=== PATIENT | male | born 1965 | race Caucasian/White ===

== ENCOUNTER 2020-09-05 13:22 | Inpatient (IN) | payer OTHER ==
[~2020-09-05] VITALS: Ht 170.2 cm; Wt 88.3 kg
[2020-09-05] MEDS ORDERED: GLIP5TAB10 PO (14:36)
[2020-09-05] MEDS ORDERED: TRAZ-120 PO (14:36)
[2020-09-05] MEDS ORDERED: PYRI50TA6 PO (14:36)
[2020-09-05] MEDS ORDERED: MUPI22OI2 TP (14:36)
[2020-09-05] MEDS ORDERED: ASPI-630 PO (14:36)
[2020-09-05] MEDS ORDERED: METF500T16 PO (14:36)
[2020-09-05] MEDS ORDERED: LACT1CAP29 PO (14:36)
[2020-09-05] MEDS ORDERED: LEVE750T23 PO (14:36)
[2020-09-05] MEDS ORDERED: ALOG25TA PO (14:36)
[2020-09-05] MEDS ORDERED: TAMS0.4C97 PO (14:36)
[2020-09-05] MEDS ORDERED: ATORVASTATIN CA80 MG PO (14:36)
[2020-09-05] MEDS ORDERED: CHOL500021 PO (14:36)
[2020-09-05] MEDS ORDERED: GLUC-11 PO (14:36)
[2020-09-05] MEDS ORDERED: FLUO10CA15 PO (14:36)
[2020-09-05] MEDS ORDERED: EMPA25TA PO (14:36)
[2020-09-05] MEDS ORDERED: ARIP10TA9 PO (14:36)
[2020-09-05 14:53] VITALS: BP 146/80
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
--- NOTE | 2020-09-05 15:31 | NUR ---
NURSING NOTE CODE STATUS PER PT MOTHER POA, PT IS FULL CODE AT THIS TIME. ELVIN MATTHEW.
--- NOTE | 2020-09-05 15:33 | NUR ---
Basilio [place] a [place] fee for service, consult number [id number]. Meera, [place] demo coordinator, will call with [place] authorization number once issued. Addendum: 09/06/20 at 0925 by DOLORES LOPEZ [facility] referral/authorization number is [id number].
--- NOTE | 2020-09-05 16:05 | NUR ---
NURSING NOTE CONSULT CONSULT DR GARCIA FAXED. ELVIN MATTHEW.
--- NOTE | 2020-09-05 18:22 | HP ---
ADMIT DATE: 09/05/2020 ATTENDING PHYSICIAN: Dr. Hendrix. CHIEF COMPLAINT AND HISTORY OF PRESENT ILLNESS: The patient is scheduled [facility]. He is a [place] patient. He lives at home. He has been very hostile, agitated, and irritable. He has trouble with expressive aphasia, previous stroke and frontal lobe surgery. He is on medications for bipolar disorder. He was referred from the [facility]. PAST MEDICAL HISTORY: Stroke 2 years ago requiring craniotomy left frontal lobe, bipolar disorder, anxiety, expressive aphasia, type 2 diabetes, alcohol dependence, hypertension and coronary artery disease. ALLERGIES: He has no recorded drug allergies. MEDICATIONS: Reviewed. He was taking Flomax, Lipitor, aspirin, Keppra, fluoxetine, trazodone, Abilify, lactobacillus, Metformin, Jardiance, glipizide, __, pyridoxine, cholecalciferol, vitamin D3, and glucosamine, chondroitin sulfate. ALLERGIES: He has no recorded allergies. SOCIAL HISTORY: He is a drinker. No smoking history. FAMILY HISTORY: He lives with his mom. He is a disabled . REVIEW OF SYSTEMS: Significant for speech issues. He has had some chronic swelling. No pain, fevers or chills. No nausea or vomiting. All other systems reviewed and turned to be negative. PHYSICAL EXAMINATION: GENERAL: When I saw him, this is a pleasant, middle-aged gentleman. INITIAL VITAL SIGNS: Showed a blood pressure 146/80, pulse is 89 and regular. He was afebrile, oxygen saturation 96% on room air. HEENT: Head is without trauma. Pupils are reactive. Sclerae are nonicteric. The oropharynx is clear. NECK: Supple, no bruits identified. There is a midline incision from the scalp that is well healed. LUNGS: Otherwise clear. CARDIOVASCULAR: Showed regular heart tones. No gallops. ABDOMEN: Soft, no guarding, rebound tenderness. EXTREMITIES: Showed no cyanosis or edema. NEUROLOGIC: Focally intact. Speech is a bit stuttered and labored, but he is able to communicate adequately. There are no focal deficits. SKIN: Warm and dry. LABORATORY DATA: CBC, chemistry panel, treponema pallidum and coronavirus swab are pending at this time. ASSESSMENT: 1. This 55-year-old gentleman has behavioral issues related to his stroke. 2. Aggressive behavior. 3. Schizoaffective disorder. 4. History of chronic alcoholism. 5. Anxiety with aphasia. 6. Type 2 diabetes. 7. Idiopathic seizure disorder. PLAN: 1. Admit to the medical floor. 2. Await results of COVID swab and lab work. 3. Home meds were continued. 4. He will go to the [facility] when his COVID-19 swab is negative. JET HENDRIX MD DR: KAITLIN/marco JOB#: [id number] / [id number] SHARRI Jiménez MD
[2020-09-05 19:25] VITALS: BP 133/77
[2020-09-05 19:48] LABS: BASO % 1 % (0-3); EOS # 0.1 x10^3/uL (0.0-0.7); EOS % 2 % (0-3); HEMATOCRIT 44.3 % (39.0-53.0); HEMOGLOBIN 14.4 g/dL (13.0-17.5); LYMPH # 1.4 x10^3/uL (1.0-4.8); LYMPH % 20 % (24-48); MEAN CORPUSCULAR HEMOGLOBIN 29 pg (25-35); MEAN CORPUSCULAR HGB CONC 33 g/dL (31-37); MEAN CORPUSCULAR VOLUME 90 fL (79-100); MONO # 0.5 x10^3/uL (0.0-1.1); MONO % 8 % (0-9); NEUT # 4.8 x10^3uL (1.8-7.7); NEUT % 70 % (31-73); PLATELET COUNT 271 x10^3/uL (140-400); RED BLOOD COUNT 4.94 x10^6/uL (4.30-5.70); WHITE BLOOD COUNT 6.9 x10^3/uL (4.0-11.0)
[2020-09-05 20:01] LABS: ALBUMIN 3.9 g/dL (3.4-5.0); CALCIUM 9.5 mg/dL (8.5-10.1); CREATININE 1.6 mg/dL (0.7-1.3); GFR 45.1; MAGNESIUM 2.4 mg/dL (1.8-2.4); POTASSIUM 3.7 mmol/L (3.5-5.1); TOTAL BILIRUBIN 0.2 mg/dL (0.2-1.0); TOTAL PROTEIN 7.7 g/dL (6.4-8.2)
[2020-09-05 20:32] LABS: BACTERIA,URINE 0 /HPF (0-FEW); BILIRUBIN,URINE NEG (NEG); CLARITY,URINE CLEAR; COLOR,URINE YELLOW; GLUCOSE,URINE >=1000 mg/dL (NEG); NITRITE,URINE NEG (NEG); RBC,URINE 0 /HPF (0-2); UROBILINOGEN,URINE 0.2 mg/dL (0.2 mg/dL); WBC,URINE 0 /HPF (0-4)
[2020-09-05] MEDS ORDERED: traZODone 50 MG TABLET. PO SCH (21:00)
[2020-09-05] MEDS: LACTOBACILLUS RHAMNOSUS GG 1 CAPSULE. PO SCH (21:21)
[2020-09-05] MEDS: MUPIROCIN 2% TOPICAL OINTMENT 22GM TUBE. TP SCH (21:22)
[2020-09-05] MEDS: levETIRAcetam 250 MG TABLET PO SCH (21:22)
[2020-09-05] MEDS: glipiZIDE 5 MG TABLET PO SCH (21:22)
--- NOTE | 2020-09-05 22:12 | PDOC ---
Exam Note: Pasha Note: Please also refer to the separate dictated note~for this date of service dictated separately.~Patient seen individually. Discussed the patient with Nursing staff reviewed the chart.~Reviewed interim history and current functioning. Reviewed vital signs,~Labs/ Radiology~and current medications noted below. Continue current treatment with the changes noted in the dictated addendum note Assessment: Vital Signs/I&O: Vital Signs Date Time Temp Pulse Resp B/P (MAP) Pulse Ox O2 Delivery O2 Flow Rate FiO2 09/05/20 19:25 98.0 76 18 133/77 (95) 98 Room Air Labs: Laboratory Tests Test 09/05/20 19:26 09/05/20 19:27 09/05/20 20:01 White Blood Count 6.9 x10^3/uL (4.0-11.0) Red Blood Count 4.94 x10^6/uL (4.30-5.70) Hemoglobin 14.4 g/dL (13.0-17.5) Hematocrit 44.3 % (39.0-53.0) Mean Corpuscular Volume 90 fL (79-100) Mean Corpuscular Hemoglobin 29 pg (25-35) Mean Corpuscular Hemoglobin Concent 33 g/dL (31-37) Red Cell Distribution Width 14.0 % (11.5-14.5) Platelet Count 271 x10^3/uL (140-400) Neutrophils (%) (Auto) 70 % (31-73) Lymphocytes (%) (Auto) 20 % (24-48) L Monocytes (%) (Auto) 8 % (0-9) Eosinophils (%) (Auto) 2 % (0-3) Basophils (%) (Auto) 1 % (0-3) Neutrophils # (Auto) 4.8 x10^3uL (1.8-7.7) Lymphocytes # (Auto) 1.4 x10^3/uL (1.0-4.8) Monocytes # (Auto) 0.5 x10^3/uL (0.0-1.1) Eosinophils # (Auto) 0.1 x10^3/uL (0.0-0.7) Basophils # (Auto) 0.0 x10^3/uL (0.0-0.2) Sodium Level 139 mmol/L (136-145) Potassium Level 3.7 mmol/L (3.5-5.1) Chloride Level 102 mmol/L (98-107) Carbon Dioxide Level 26 mmol/L (21-32) Anion Gap 11 (6-14) Blood Urea Nitrogen 32 mg/dL (8-26) H Creatinine 1.6 mg/dL (0.7-1.3) H Estimated GFR (Cockcroft-Gault) 45.1 BUN/Creatinine Ratio 20 (6-20) Glucose Level 165 mg/dL (70-99) H Calcium Level 9.5 mg/dL (8.5-10.1) Magnesium Level 2.4 mg/dL (1.8-2.4) Total Bilirubin 0.2 mg/dL (0.2-1.0) Aspartate Amino Transferase (AST) 36 U/L (15-37) Alanine Aminotransferase (ALT) 92 U/L (16-63) H Alkaline Phosphatase 96 U/L (46-116) Total Protein 7.7 g/dL (6.4-8.2) Albumin 3.9 g/dL (3.4-5.0) Albumin/Globulin Ratio 1.0 (1.0-1.7) Urine Collection Type Unknown Urine Color Yellow Urine Clarity Clear Urine pH 6.0 Urine Specific [place] 1.010 Urine Protein Neg (NEG-TRACE) Urine Glucose (UA) >=1000 mg/dL (NEG) Urine Ketones (Stick) Neg mg/dL (NEG) Urine Blood Neg (NEG) Urine Nitrite Neg (NEG) Urine Bilirubin Neg (NEG) Urine Urobilinogen Dipstick 0.2 mg/dL (0.2 mg/dL) Urine Leukocyte Esterase Neg (NEG) Urine RBC 0 /HPF (0-2) Urine WBC 0 /HPF (0-4) Urine Squamous Epithelial Cells None /LPF Urine Bacteria 0 /HPF (0-FEW) Glucose (Fingerstick) 167 mg/dL (70-99) H Current Medications: Meds: Current Medications Medications (Trade) Dose Ordered Sig/Joseph Route PRN Reason Start Time Stop Time Status Last Admin Dose Admin Glipizide (Glucotrol) 5 mg TID PO 09/05/20 21:00 09/05/20 21:22 Mupirocin (Bactroban) 1 keily BID TP 09/05/20 21:00 09/05/20 21:22 Trazodone HCl (Desyrel) 25 mg QHS PO 09/05/20 21:00 09/05/20 21:21 Lactobacillus Rhamnosus (Culturelle) 1 cap BID PO 09/05/20 21:00 09/05/20 21:21 Levetiracetam (Keppra) 750 mg BID PO 09/05/20 21:00 09/05/20 21:22 I have reviewed the current psychotropics carefully including drug interactions. Risk benefit ratio favors no change other than as noted in my dictated progress note. Diagnosis: Problems: (1) Anxiety disorder, unspecified SHARRI GARCIA MD Sep 05, 2020 22:12
[2020-09-06 07:40] VITALS: BP 107/63
[2020-09-06] MEDS: glipiZIDE 5 MG TABLET PO SCH ×2 (08:46→14:20)
[2020-09-06] MEDS: LACTOBACILLUS RHAMNOSUS GG 1 CAPSULE. PO SCH (08:46)
[2020-09-06] MEDS: levETIRAcetam 250 MG TABLET PO SCH (08:46)
[2020-09-06] MEDS ORDERED: CHOLECALCIFEROL (VITAMIN D3) 1,000 UNIT TABLET PO SCH (09:00)
[2020-09-06] MEDS ORDERED: ATORVASTATIN CALCIUM 20 MG TABLET PO SCH (09:00)
[2020-09-06] MEDS ORDERED: PYRIDOXINE 50 MG TABLET. PO SCH (09:00)
[2020-09-06] MEDS ORDERED: EMPAGLIFLOZIN PO SCH (09:00)
[2020-09-06] MEDS ORDERED: metFORMIN 500 MG TABLET PO SCH (09:00)
[2020-09-06] MEDS ORDERED: FLU VACC QS 2020-21(6MOS+)/PF 0.5 ML SYRINGE. VAX IM ONE (09:00)
[2020-09-06] MEDS ORDERED: TAMSULOSIN 0.4 MG CAP.ER.24H. PO SCH (09:00)
[2020-09-06] MEDS: MUPIROCIN 2% TOPICAL OINTMENT 22GM TUBE. TP SCH (09:00)
[2020-09-06] MEDS ORDERED: ASPIRIN CHEWABLE 81 MG TABLET. PO SCH (09:00)
[2020-09-06] MEDS ORDERED: ARIPiprazole 5 MG TABLET PO SCH (09:00)
[2020-09-06] MEDS ORDERED: FLUoxetine HCL 10 MG CAPSULE PO SCH (09:00)
--- NOTE | 2020-09-06 12:43 | DS ---
DATE OF DISCHARGE: 09/06/2020 ATTENDING PHYSICIAN: Dr. Hendrix FINAL DISCHARGE DIAGNOSES: 1. A 55-year-old gentleman with aggressive behavior issues related to stroke. 2. Schizoaffective disorder. 3. History of chronic alcoholism. 4. History of resection of frontal lobe. 5. Anxiety with aphasia. 6. Type 2 diabetes. 7. Idiopathic seizure disorder. HISTORY OF PRESENT ILLNESS: This is a 55-year-old gentleman, [place] patient, referred to the [facility]. He has had frustration, trouble with expressive aphasia, previous stroke and frontal lobe surgery. He has schizoaffective disorder, bipolar disease. He was referred from the [facility]. Medical issues include stroke, craniotomy, seizure disorder, alcohol use and type 2 diabetes. PHYSICAL EXAMINATION: Please see the dictated note. PERTINENT LABORATORY AND X-RAY STUDIES: On admission, his hemoglobin was 14.4 g/dL with white count of 6900. Chemistry panel was unremarkable. Nonfasting blood sugar 165. Creatinine is 1.6 mg percent. Transaminases were normal. Serology, the reported coronavirus, COVID-19 swab was negative and not detected. COURSE IN THE HOSPITAL: The patient was admitted. He had a negative COVID screen. Home meds were continued. He was given a regular diet and he was stable. On the second hospital day, his vital signs were quite stable. He was discharged to go to the [facility]. His discharge meds are unchanged. He will continue his scheduled Nesina, Abilify, aspirin, Lipitor, vitamin D3, Jardiance, fluoxetine, glipizide, glucosamine, lactobacillus, Keppra, metformin, pyridoxine, Flomax and trazodone; doses unchanged. We will follow him closely on the Behavioral Unit. He was discharged then from our hospital in stable condition with explicit instructions and followup care. JET HENDRIX MD DR: KAITLIN/marco JOB#: [id number] / [id number] ecc ,
[2020-09-06 13:40] LABS: THYROID STIM HORMONE (TSH) 1.346 uIU/mL (0.358-3.740)
--- NOTE | 2020-09-06 14:40 | NUR ---
NURSING NOTE: DISCHARGE PT DISCHARGED TO [facility] AT 1421. PT TAKEN IN WC TO 2ND FLOOR. DISCHARGE INSTRUCTIONS AND CHART SENT TO [facility]. REPORT CALLED TO KRISTINE. INSTRUCTIONS UNDERSTOOD. NO FURTHER QUESTIONS. ELVIN HASTINGS
[2020-09-06] MEDS ORDERED: VITA1TAB31 PO (16:32)
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
[2020-09-08 03:10] LABS: THYROXINE 6.5 ug/dL (4.5-12.0)
[2020-09-08 04:11] LABS: HEMOGLOBIN A1C 7.9 % (4.8-5.6)
== END 2020-09-06 14:43 | DRG 101 ==
LOC: 1 SOUTH 14:22
PROVIDERS: ADMIT Hospitalist; ATTEND Hospitalist
DX: G40.909 Epilepsy, unspecified, not intractable, without status epilepticus (principal); F31.60 Bipolar disorder, current episode mixed, unspecified; F25.9 Schizoaffective disorder, unspecified; E11.9 Type 2 diabetes mellitus without complications; F10.10 Alcohol abuse, uncomplicated; F41.9 Anxiety disorder, unspecified; F63.9 Impulse disorder, unspecified; I10 Essential (primary) hypertension; I25.10 Atherosclerotic heart disease of native coronary artery without angina pectoris; I69.320 Aphasia following cerebral infarction; Z20.828 Contact with and (suspected) exposure to other viral communicable diseases; Y90.9 Presence of alcohol in blood, level not specified; Z79.899 Other long term (current) drug therapy
CPT/HCPCS: 36415; 80053; 80061; 81001; 82306; 82607; 82947; 83036; 83540; 83550; 83735; 84436; 84443; 84480; 85025; 86592; 90471; U0003; 90686

== ENCOUNTER 2020-09-06 14:22 | Inpatient (IN) | payer OTHER ==
[~2020-09-06] VITALS: Ht 170.2 cm; Wt 87.9 kg
[~2020-09-06 14:22] MED LIST: ALOG25TA PO; ARIP10TA9 PO; ASPI-630 PO; ATORVASTATIN CA80 MG PO; CHOL500021 PO; EMPA25TA PO; FLUO10CA15 PO; GLIP5TAB10 PO; GLUC-11 PO; LACT1CAP29 PO; LEVE750T23 PO; METF500T16 PO; MUPI22OI2 TP; PYRI50TA6 PO; TAMS0.4C97 PO; TRAZ-120 PO
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
[2020-09-06] MEDS ORDERED: MAGNESIUM HYDROXIDE 2,400 MG/30 ML ORAL.SUSP. PO PRN (16:00)
[2020-09-06] MEDS ORDERED: METHYL SALICYLATE/MENTHOL TOPICAL OINTMENT 57GM TUBE. TP PRN (16:00)
[2020-09-06] MEDS ORDERED: MAG HYDROX/AL HYDROX/SIMETH 30 ML ORAL.SUSP PO PRN (16:00)
[2020-09-06] MEDS ORDERED: ACETAMINOPHEN 325 MG TABLET PO PRN (16:00)
[2020-09-06 16:07] VITALS: BP 148/80
[2020-09-06] MEDS ORDERED: VITA1TAB31 PO (16:32)
[2020-09-06] MEDS ORDERED: traZODone 50 MG TABLET. PO PRN (19:15)
[2020-09-06] MEDS: traZODone 50 MG TABLET. PO PRN (20:09)
[2020-09-06] MEDS: glipiZIDE 5 MG TABLET PO SCH (20:09)
[2020-09-06] MEDS: LACTOBACILLUS RHAMNOSUS GG 1 CAPSULE. PO SCH (20:09)
[2020-09-06] MEDS: levETIRAcetam 250 MG TABLET PO SCH (20:09)
[2020-09-06] MEDS: ATORVASTATIN CALCIUM 20 MG TABLET PO SCH (20:09)
[2020-09-06] MEDS: MUPIROCIN 2% TOPICAL OINTMENT 22GM TUBE. TP SCH (20:11)
[2020-09-06] MEDS ORDERED: traZODone 50 MG TABLET. PO SCH (21:00)
--- NOTE | 2020-09-06 21:39 | NUR ---
Nursing Note: Pt lying in bed with blanket over his head when I entered the room. After announcing myself, pt jumped up out of bed. Pt was clearly agitated and irritable when acknowledging me. Pt expressed frustration towards Dr. Durand for "putting me here without a tv. I can't finish what I was watching". Pt goes on to express that it is all the doctor's fault that he is here and that he is "having a very bad day". I spoke with pt about the fact that Dr. Durand is not the reason that he was admitted here. He then reported that he had believed that Dr. Durand worked at the [facility] and that he had thought the doctor had sent him over here. After talking to pt at length, pt was able to calm down and spoke to staff about playing the Tech urSelfr and working on cars. Pt cooperative and compliant with medications and assessment. PRN Trazodone administered at for sleep. Staff provided pt with snacks. Pt was then allowed to user the Michael to listen to music or play a game to which he was very happy about. Pt apologized for getting angry and swearing during our conversation. Pt is currently resting quietly in bed with his eyes closed.
--- NOTE | 2020-09-06 21:58 | PDOC ---
Exam Note: Pasha Note: Please also refer to the separate dictated note~for this date of service dictated separately.~Patient seen individually. Discussed the patient with Nursing staff reviewed the chart.~Reviewed interim history and current functioning. Reviewed vital signs,~Labs/ Radiology~and current medications noted below. Continue current treatment with the changes noted in the dictated addendum note Assessment: Vital Signs/I&O: Vital Signs Date Time Temp Pulse Resp B/P (MAP) Pulse Ox O2 Delivery O2 Flow Rate FiO2 09/06/20 16:07 97.7 88 20 148/80 (102) 99 Labs: Laboratory Tests Test 09/06/20 17:10 Glucose (Fingerstick) 108 mg/dL (70-99) H Current Medications: Meds: Current Medications Medications (Trade) Dose Ordered Sig/Joseph Route PRN Reason Start Time Stop Time Status Last Admin Dose Admin Glipizide (Glucotrol) 5 mg TID PO 09/06/20 21:00 09/06/20 20:09 Mupirocin (Bactroban) 1 keily BID TP 09/06/20 21:00 09/06/20 20:11 Atorvastatin Calcium (Lipitor) 80 mg QHS PO 09/06/20 21:00 09/06/20 20:09 Lactobacillus Rhamnosus (Culturelle) 1 cap BID PO 09/06/20 21:00 09/06/20 20:09 Levetiracetam (Keppra) 750 mg BID PO 09/06/20 21:00 09/06/20 20:09 Trazodone HCl (Desyrel) Repeat dose if first ... QHS PRN PO INSOMNIA 09/06/20 19:15 09/06/20 20:09 I have reviewed the current psychotropics carefully including drug interactions. Risk benefit ratio favors no change other than as noted in my dictated progress note. Diagnosis: Problems: (1) Anxiety disorder, unspecified (2) Bipolar affective disorder, mixed SHARRI GARCIA MD Sep 06, 2020 21:58
[2020-09-07 06:10] VITALS: BP 101/62
[2020-09-07] MEDS: TAMSULOSIN 0.4 MG CAP.ER.24H. PO SCH (08:42)
[2020-09-07] MEDS: FLUoxetine HCL 10 MG CAPSULE PO SCH (08:43)
[2020-09-07] MEDS: ASPIRIN CHEWABLE 81 MG TABLET. PO SCH (08:43)
[2020-09-07] MEDS: metFORMIN 500 MG TABLET PO SCH (08:44)
[2020-09-07] MEDS: ATORVASTATIN CALCIUM 20 MG TABLET PO SCH (08:45)
[2020-09-07] MEDS: ARIPiprazole 5 MG TABLET PO SCH (08:46)
[2020-09-07] MEDS: glipiZIDE 5 MG TABLET PO SCH ×3 (08:46→20:42)
[2020-09-07] MEDS: levETIRAcetam 250 MG TABLET PO SCH ×2 (08:47→20:42)
[2020-09-07] MEDS: LACTOBACILLUS RHAMNOSUS GG 1 CAPSULE. PO SCH ×2 (08:47→20:41)
[2020-09-07] MEDS: MUPIROCIN 2% TOPICAL OINTMENT 22GM TUBE. TP SCH ×2 (09:00→20:49)
[2020-09-07] MEDS ORDERED: VITAMIN K2 PO SCH (09:00)
[2020-09-07] MEDS ORDERED: VITAMIN D3 PO SCH (09:00)
[2020-09-07] MEDS ORDERED: CHOLECALCIFEROL (VITAMIN D3) 1,000 UNIT TABLET PO SCH (09:00)
--- NOTE | 2020-09-07 09:52 | NUR ---
Hgb A1C test sent with admission records. Result 8.5. Test by [facility] [place] [facility] 09/02/2020.
[2020-09-07] MEDS: EMPAGLIFLOZIN 12.5 MG PO SCH (11:13)
[2020-09-07] MEDS: PYRIDOXINE 50 MG TABLET. PO SCH (11:14)
--- NOTE | 2020-09-07 11:38 | NUR ---
Patient alert and walking down hallway from getting coffee when approached for medications. Patient very talkative but unable to express exactly what he is meaning. He uses hand motions and descriptions to get nurse to understand what he is saying. Patient does not display any frustrations or abusive behavior at this time. No further concerns at this time.
--- NOTE | 2020-09-07 11:52 | NUR ---
Basilio is a [place] fee for service payor with [place] authorization number of [id number].
[2020-09-07 15:45] VITALS: BP 148/85
--- NOTE | 2020-09-07 17:12 | NUR ---
PSYCHOSOCIAL ASSESSMENT ADMISSION DATE: 09/06/20 CONTACT INFORMATION: DPOA/Guardian Contact Name: Nury Hannah Contact Phone #: [phone] ETHNIC ORIGIN: REASONS FOR ADMISSION: Aggressive Agitated Angry Anxiety/Panic Relation/conflict Suicidal ideation REASON FOR ADMISSION IN PATIENT/FAMILY'S OWN WORDS: Per pt, "I can't think." Per DPOA, "Due to increasing safety concerns, he can't be left at home alone. His sister comes sometimes to stay to attempt to help out with care taking and and ensure safety." PATIENT/FAMILY EXPECTATIONS FOR ADMISSION: Medication stabilization as the concern is with the three seizure medications possibly contributing to his agitation and behavioral symptoms. Would like to see a decrease in anger, agitation, aggression, name calling, and confrontation. LIVING SITUATION: Patient lives with: Parent Other living arrangements: Contact Name: Nury Hannah Contact Address: [address] [place] [address] Contact Phone #: [phone] Contact Fax #: FAMILY RELATIONS: Marital Status: # of Marriages: 2 # of Children: 0 [facility] Family Support: Concerned Cooperative Involved in DC Planning Additional Comments r/t Family: DPOA is mother Fay Hannah. Pt lives with his parents in [place]. One of his sister's stays with them often to help with care taking and to ensure safety. Pt is oldest of 5 children. His other siblings live close by, but have lives of their own and tend to distance themselves. SIGNIFICANT PSYCHIATRIC/MEDICAL HISTORY: Psychiatric/Treatment History: Per DPOA pt has been hospitalized for paranoia twice in the past. Could not recall when, but several years ago. Pertinent Family History: TAB denies any other family members struggling with past psychiatric issues. 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 Sabianism background: Was baptized in the [employer] as a child,but has not attended in years. Sexual orientation: Heterosexual Educational Level: Completed High School at [employer] and took [employer] trade. Obtained some college credits, but did not graduate from college. Past/Present Interests/Hobbies: Playing guitar and at one time hunting, but he tends to not follow through with or stick with things that he thought he was going to be interested in. Financial support/resources: [facility] Benefits Monthly income: 0 Person handling finances: Has no money, but parents help pay his truck insurance. Do you have a history of legal problems: N Cultural considerations: None SOCIAL RELATIONSHIPS-CURRENT/PAST: Psychiatrist: [facility] 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 PRELIMINARY PLAN OF TREATMENT: Preliminary plan: Dec. Anxiety/Panic Promote Coping Skill No Suicidal/Barry. ideation Improved Social Skills Medication Stabilization Monitor Med Effects Control abnormal behavior Dec. Outbursts Dec. Aggression Other preliminary treatment comments: While at [facility] pt will be encouraged to attend SW and recreational therapy groups. Pt will also be encouraged to identify triggers of agitation and some coping strategies to reduce anger. Pt will be medication compliant and attempt to communicate how the medication makes him feel. DISCHARGE PLANNING: Discharge planning/disposition: Home Additional discharge needs identified: Plan is for pt to return home with family and continue to receive already established supportive services through the [facility]. ADDITIONAL INFORMATION: Other Pertinent Data: TAB has been informed of treatment team time frame and agreed to be contacted on 09/08/2020 between 0900 and 1000.
[2020-09-07] MEDS: traZODone 50 MG TABLET. PO PRN (20:42)
[2020-09-07] MEDS: DIVALPROEX ER 500 MG TAB.ER.24H PO SCH (20:42)
--- NOTE | 2020-09-07 22:00 | NUR ---
Nursing Note: Pt lying in bed with blanket over his head when approached. Pt irritable, agitated r/t current situation, and tangental. Pt expressing frustration that he asked for another pillow but was not given one. He also feels as though staff is not helpful in general to himself or other patients. I provided pt with an additional pillow but this seem to irritate him more. He felt as though he had offended me and apologized several times. I offered him reassurance but he seemed frustrated. Pt cooperative and compliant with assessment and medications administered whole. Pt currently resting in bed with eyes closed.
--- NOTE | 2020-09-07 22:03 | PDOC ---
Exam Note: Pasha Note: Please also refer to the separate dictated note~for this date of service dictated separately.~Patient seen individually. Discussed the patient with Nursing staff reviewed the chart.~Reviewed interim history and current functioning. Reviewed vital signs,~Labs/ Radiology~and current medications noted below. Continue current treatment with the changes noted in the dictated addendum note Assessment: Vital Signs/I&O: Vital Signs Date Time Temp Pulse Resp B/P (MAP) Pulse Ox O2 Delivery O2 Flow Rate FiO2 09/07/20 15:45 97.6 86 18 148/85 (106) 99 Room Air I & O 09/06/20 09/06/20 09/07/20 14:59 22:59 06:59 Intake Total 840 ml Balance 840 ml Labs: Laboratory Tests Test 09/07/20 07:30 09/07/20 12:15 09/07/20 16:34 Glucose (Fingerstick) 157 mg/dL (70-99) H 161 mg/dL (70-99) H 186 mg/dL (70-99) H Current Medications: Meds: Current Medications Medications (Trade) Dose Ordered Sig/Joseph Route PRN Reason Start Time Stop Time Status Last Admin Dose Admin Aripiprazole (Abilify) 5 mg DAILY PO 09/07/20 09:00 09/07/20 08:46 Aspirin (Aspirin Chewable) 81 mg DAILY PO 09/07/20 09:00 09/07/20 08:43 Fluoxetine HCl (PROzac) 10 mg DAILY PO 09/07/20 09:00 09/07/20 08:43 Metformin HCl (Glucophage) 500 mg DAILY PO 09/07/20 09:00 09/07/20 08:44 Tamsulosin HCl (Flomax) 0.4 mg DAILY PO 09/07/20 09:00 09/07/20 08:42 Vitamin D (Vitamin D3) 2,000 unit DAILY PO 09/07/20 09:00 09/07/20 18:09 DC 09/07/20 08:44 Divalproex Sodium (Depakote Er) 500 mg QHS PO 09/07/20 21:00 09/07/20 20:42 I have reviewed the current psychotropics carefully including drug interactions. Risk benefit ratio favors no change other than as noted in my dictated progress note. Diagnosis: Problems: (1) Bipolar disorder, curr episode mixed, severe, with psychotic features (2) Impulse control disorder, unspecified (3) Anxiety disorder, unspecified (4) Bipolar affective disorder, mixed SHARRI GARCIA MD Sep 07, 2020 22:03
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
[2020-09-08 05:23] VITALS: BP 97/60
[2020-09-08] MEDS: LACTOBACILLUS RHAMNOSUS GG 1 CAPSULE. PO SCH ×2 (07:39→20:47)
[2020-09-08] MEDS: ASPIRIN CHEWABLE 81 MG TABLET. PO SCH (07:39)
[2020-09-08] MEDS: FLUoxetine HCL 10 MG CAPSULE PO SCH (07:39)
[2020-09-08] MEDS: TAMSULOSIN 0.4 MG CAP.ER.24H. PO SCH (07:39)
[2020-09-08] MEDS: glipiZIDE 5 MG TABLET PO SCH ×3 (07:39→20:46)
[2020-09-08] MEDS: PYRIDOXINE 50 MG TABLET. PO SCH (07:39)
[2020-09-08] MEDS: ARIPiprazole 5 MG TABLET PO SCH (07:39)
[2020-09-08] MEDS: metFORMIN 500 MG TABLET PO SCH (07:39)
[2020-09-08] MEDS: levETIRAcetam 250 MG TABLET PO SCH ×2 (07:40→20:47)
[2020-09-08] MEDS: CHOLECALCIFEROL (VITAMIN D3) 50,000 UNIT CAPSULE PO SCH (07:41)
[2020-09-08] MEDS: MUPIROCIN 2% TOPICAL OINTMENT 22GM TUBE. TP SCH ×2 (07:41→20:46)
[2020-09-08] MEDS: EMPAGLIFLOZIN 12.5 MG PO SCH (07:44)
--- NOTE | 2020-09-08 08:03 | PDOC ---
Exam Note: Pasha Note: This note is a late entry for 09/07/2020 covers elements not covered in my initial note. Subjective: The patient was reviewed on telehealth rounds in the evening of 09/07/2020 with Alicia OCONNOR. Discussed with nursing staff, reviewed the chart. The patient slept 7-1/4 hours previous night. Overall per nursing report the patient has done better during the day. He has responded positively to being given a emory to listen to music and see his videos. He remains somewhat impulsive nevertheless. Review of Systems: No CV, , pulmonary, eye system symptoms on review. He is hard of hearing. Mental Status Exam: Reasonably oriented. Speech is coherent, rapid at times. He does have some intellectual disability and quite impulsive still with dysphoric mood, at times irritable, paranoid, suspicious. Abstraction is fair. Computation impaired. Attention span is somewhat short. No suicidal or homicidal ideation. Laboratory Data: Reviewed. Impression: Bipolar disorder mixed with psychotic features. Impulse control disorder. Anxiety disorder unspecified. Plan: Continue psychotropics from initial note. Given his marked mood lability we will add Depakote ER 500 mg h.s. Check CBC, CMP, valproic acid level in 3 days. Continue rest unchanged. Assessment: Vital Signs/I&O: Vital Signs Date Time Temp Pulse Resp B/P (MAP) Pulse Ox O2 Delivery O2 Flow Rate FiO2 09/08/20 05:23 98.0 90 18 97/60 (72) 96 Room Air I & O 09/07/20 09/07/20 09/08/20 14:59 22:59 06:59 Intake Total 1225 ml 550 ml 240 ml Balance 1225 ml 550 ml 240 ml Labs: Laboratory Tests Test 09/07/20 12:15 09/07/20 16:34 09/08/20 07:28 Glucose (Fingerstick) 161 mg/dL (70-99) H 186 mg/dL (70-99) H 167 mg/dL (70-99) H Current Medications: Meds: Current Medications Medications (Trade) Dose Ordered Sig/Joseph Route PRN Reason Start Time Stop Time Status Last Admin Dose Admin Aripiprazole (Abilify) 5 mg DAILY PO 09/07/20 09:00 09/08/20 07:39 Aspirin (Aspirin Chewable) 81 mg DAILY PO 09/07/20 09:00 09/08/20 07:39 Fluoxetine HCl (PROzac) 10 mg DAILY PO 09/07/20 09:00 09/08/20 07:39 Metformin HCl (Glucophage) 500 mg DAILY PO 09/07/20 09:00 09/08/20 07:39 Pyridoxine HCl (Vitamin B-6) 50 mg DAILY PO 09/07/20 09:00 09/08/20 07:39 Tamsulosin HCl (Flomax) 0.4 mg DAILY PO 09/07/20 09:00 09/08/20 07:39 Vitamin D (Vitamin D3) 2,000 unit DAILY PO 09/07/20 09:00 09/07/20 18:09 DC 09/07/20 08:44 Vitamin D (Vitamin D3) 50,000 unit WEEKLY PO 09/08/20 09:00 09/08/20 07:41 Divalproex Sodium (Depakote Er) 500 mg QHS PO 09/07/20 21:00 09/07/20 20:42 I have reviewed the current psychotropics carefully including drug interactions. Risk benefit ratio favors no change other than as noted in my dictated progress note. Diagnosis: Problems: (1) Bipolar affective disorder, mixed (2) Anxiety disorder, unspecified (3) Impulse control disorder, unspecified (4) Bipolar disorder, curr episode mixed, severe, with psychotic features SHARRI GARCIA MD Sep 08, 2020 08:03
--- NOTE | 2020-09-08 09:25 | NUR ---
NURSING NOTE PT WAS ON BEDSIDE THIS AM UPON ASSESSMENT AND MEDICATION ADMINISTRATION. PT IS A&O, SLOW TO RESPOND D/T DYSPHAGIA FROM PREVIOUS CVA AND CRANIOTOMY. PT IS CALM AND COOPERATIVE THIS AM, TOOK MEDS WHOLE WITH WATER, VOICES CONCERN ABOUT HIS FAMILY AND ISSUES AT HOME. PT IS INDEPENDENT IN HIS ROOM. PT HAS 2+ EDEMA IN LEFT LOWER LEG AND TRACE EDEMA IN RIGHT LOWER LEG HE STATES IS BETTER TODAY THAN IT HAS BEEN PRIOR. PT HAS ABRASION TO LEFT FOREARM FROM HIS SISTER. PT STATES HE DOES NOT SLEEP MUCH AND STRUGGLES WITH THAT. PT CURRENTLY IN CHAIR IN HALLWAY WITH MASK ON, POLITE, AND INTERACTIVE WITH STAFF APPROPRIATELY. WILL CONTINUE TO MONITOR. ELVIN MATTHEW.
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
--- NOTE | 2020-09-08 10:15 | NUR ---
NURSING NOTE CONSULT NEUROLOGY CONSULT DR HO, PT HX SEIZURES CURRENTLY TAKING KEPPRA, CAN CAUSE BEHAVIORAL PROBLEMS, DR GARCIA WOULD LIKE DR HO TO EVALUATE AND POSSIBLY SWITCH IF POSSIBLE. CONSULT PAGED. DR HO NOTIFIED. ELVIN MATTHEW.
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
--- NOTE | 2020-09-08 14:23 | NUR ---
NURSING NOTE PER SEGMENTAL WALL INSTALLER, PT HAS BEEN VERY HELPFUL TODAY, OFFERED TO HELP PASS OUT TRAYS, OFFERED TO HELP COMPUTING MACHINE OPERATOR TRASH ETC. PT WAS VERY THANKFUL TO STAFF FOR ALLOWING HIM TO HELP THEM. HOWEVER, PT NEEDS REMINDED THAT THE STAFF CAN ASSIST OTHER PATIENTS WHEN THIER ALARMS GO OFF AND TO NOT GO INTO THEIR ROOMS TO ASSIST, THAT TO HELP IN THAT SITUATION, FINDING A STAFF MEMBER IS THE SAFEST THING TO DO. PT CALM, COOPERATIVE, AND AGREEABLE. WILL CONTINUE TO MONITOR. ELVIN MATTHEW.
[2020-09-08 15:45] VITALS: BP 130/75
[2020-09-08] MEDS: DIVALPROEX ER 500 MG TAB.ER.24H PO SCH (20:46)
[2020-09-08] MEDS: ATORVASTATIN CALCIUM 20 MG TABLET PO SCH (20:46)
[2020-09-08] MEDS: traZODone 50 MG TABLET. PO PRN (20:47)
--- NOTE | 2020-09-08 21:55 | PDOC ---
Exam Note: Pasha Note: Please also refer to the separate dictated note~for this date of service dictated separately.~Patient seen individually. Discussed the patient with Nursing staff reviewed the chart.~Reviewed interim history and current functioning. Reviewed vital signs,~Labs/ Radiology~and current medications noted below. Continue current treatment with the changes noted in the dictated addendum note Assessment: Vital Signs/I&O: Vital Signs Date Time Temp Pulse Resp B/P (MAP) Pulse Ox O2 Delivery O2 Flow Rate FiO2 09/08/20 15:45 98.0 93 18 130/75 (93) 97 Room Air I & O 09/07/20 09/07/20 09/08/20 15:00 23:00 07:00 Intake Total 1225 ml 550 ml 240 ml Balance 1225 ml 550 ml 240 ml Labs: Laboratory Tests Test 09/08/20 07:28 09/08/20 11:59 09/08/20 16:56 Glucose (Fingerstick) 167 mg/dL (70-99) H 226 mg/dL (70-99) H 172 mg/dL (70-99) H Current Medications: Meds: Current Medications Medications (Trade) Dose Ordered Sig/Joseph Route PRN Reason Start Time Stop Time Status Last Admin Dose Admin Vitamin D (Vitamin D3) 50,000 unit WEEKLY PO 09/08/20 09:00 09/08/20 07:41 I have reviewed the current psychotropics carefully including drug interactions. Risk benefit ratio favors no change other than as noted in my dictated progress note. Diagnosis: Problems: (1) Anxiety disorder, unspecified (2) Impulse control disorder, unspecified (3) Bipolar disorder, curr episode mixed, severe, with psychotic features SHARRI GARCIA MD Sep 08, 2020 21:55
--- NOTE | 2020-09-09 01:18 | NUR ---
Pt has been pleasant tonight. He spent the evening watching a movie on a tablet. He was cooperative with meds taken whole. He struggles with his expressive dysphagia but was able to let his needs be known. He has had no behaviors tonight.
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
[2020-09-09 06:16] VITALS: BP 148/85
--- NOTE | 2020-09-09 06:32 | NUR ---
The patient has been cooperative and kind. The patient had trouble sleeping and spent a length of time visiting with this SIGN POSTER while a movie was played on the tablet. During morning rounds the patient asks if he can help the staff with anything in a genuine manner.
[2020-09-09] MEDS: ASPIRIN CHEWABLE 81 MG TABLET. PO SCH (08:26)
[2020-09-09] MEDS: FLUoxetine HCL 10 MG CAPSULE PO SCH (08:26)
[2020-09-09] MEDS: ARIPiprazole 5 MG TABLET PO SCH (08:26)
[2020-09-09] MEDS: LACTOBACILLUS RHAMNOSUS GG 1 CAPSULE. PO SCH ×2 (08:26→20:06)
[2020-09-09] MEDS: glipiZIDE 5 MG TABLET PO SCH ×3 (08:26→20:06)
[2020-09-09] MEDS: levETIRAcetam 250 MG TABLET PO SCH ×2 (08:26→20:06)
[2020-09-09] MEDS: metFORMIN 500 MG TABLET PO SCH (08:27)
[2020-09-09] MEDS: TAMSULOSIN 0.4 MG CAP.ER.24H. PO SCH (08:27)
[2020-09-09] MEDS: EMPAGLIFLOZIN 12.5 MG PO SCH (08:27)
[2020-09-09] MEDS: MUPIROCIN 2% TOPICAL OINTMENT 22GM TUBE. TP SCH ×2 (08:32→20:07)
[2020-09-09] MEDS: PYRIDOXINE 50 MG TABLET. PO SCH (08:32)
--- NOTE | 2020-09-09 10:15 | NUR ---
Pt. was in the hallway at the nurses station awaiting to speak to a nurse but stopped ONCOLOGY ADMIN instead. He talked about taking care of something before he went to group. He struggled to make sense but he said he can show her and the two walked to his room. He picked up the Michael which he was trying to say needed to be charged. ONCOLOGY ADMIN ensured she could get that charging. ONCOLOGY ADMIN discovered that the Michael was not on the appropriate setting and Pt. was watching a movie on an account that did not have restricted content. ONCOLOGY ADMIN discussed findings with assistant community director and Pt's Airplane Designer. They discussed options for applications with a safety feature to allow patients the use of technology within unit's policy and procedure.
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
--- NOTE | 2020-09-09 13:32 | NUR ---
PT IS LOCATED IN [address] AT TIME OF ASSESSMENT AND MEDICATION ADMINISTRATION. PATIENT IS PLEASANT AND COOPERATIVE WITH MEDICATIONS WHOLE WITH WATER. PATIENT HAS EXPRESSIVE APHAGIA, SO MAKING NEEDS KNOWN IS SOME WHAT DIFFICULT FOR PATIENT. PATIENTS FAMILY IS TO BRING IN COMMUNICATION BOARD THAT PATIENT UTILIZES AT HOME. PATIENT IS VERY HELPFUL AND WANTS TO HELP OTHER PATIENTS WHEN HE CAN. PATIENT IS RESTING IN ROOM AT THIS TIME. PATIENT HAD SHOWER THIS AM. WILL CONTINUE TO MONITOR.
[2020-09-09 15:37] VITALS: BP 120/85
--- NOTE | 2020-09-09 17:57 | NUR ---
DR HO WOULD LIKE TO DECREASE PATIENTS KEPPRA. PATIENT'S KEPPRA TO 500 BID, DR HO ASKED ME TO GET A HOLD OF FAMILY TO FIND OUT IF PATIENT HAS HAD A SEIZURE IN THE PAST YEAR. AND IF PATIENT HAD NOT THEN TO DECREASE KEPPRA TO 500 BID. THIS NURSE SPOKE TO PATIENTS MOTHER, WHO STATED PATIENT HAD A TWO SEIZURES IN MAY AND WAS SENT TO THE HOSPITAL WHERE THEY INCREASED HIS KEPPRA TO 750MG BID. DR. HO WAS MADE AWARE OF THIS INFORMATION.
[2020-09-09] MEDS: DIVALPROEX ER 500 MG TAB.ER.24H PO SCH (20:06)
[2020-09-09] MEDS: ATORVASTATIN CALCIUM 20 MG TABLET PO SCH (20:06)
[2020-09-09] MEDS: traZODone 50 MG TABLET. PO PRN (20:07)
--- NOTE | 2020-09-09 22:03 | PDOC ---
Exam Note: Pasha Note: Please also refer to the separate dictated note~for this date of service dictated separately.~Patient seen individually. Discussed the patient with Nursing staff reviewed the chart.~Reviewed interim history and current functioning. Reviewed vital signs,~Labs/ Radiology~and current medications noted below. Continue current treatment with the changes noted in the dictated addendum note Assessment: Vital Signs/I&O: Vital Signs Date Time Temp Pulse Resp B/P (MAP) Pulse Ox O2 Delivery O2 Flow Rate FiO2 09/09/20 15:37 97.6 83 17 120/85 (97) 98 Room Air I & O 09/08/20 09/08/20 09/09/20 14:59 22:59 06:59 Intake Total 960 ml 720 ml Balance 960 ml 720 ml Labs: Laboratory Tests Test 09/09/20 07:49 Glucose (Fingerstick) 217 mg/dL (70-99) H Current Medications: I have reviewed the current psychotropics carefully including drug interactions. Risk benefit ratio favors no change other than as noted in my dictated progress note. Diagnosis: Problems: (1) Bipolar affective disorder, mixed (2) Anxiety disorder, unspecified (3) Impulse control disorder, unspecified (4) Bipolar disorder, curr episode mixed, severe, with psychotic features SHARRI GARCIA MD Sep 09, 2020 22:03
--- NOTE | 2020-09-10 01:47 | NUR ---
Last evening pt was in his room and was pleasant and cooperative. He took meds whole without difficulty. He has had no behaviors tonight
[2020-09-10 06:00] VITALS: BP 145/83
--- NOTE | 2020-09-10 07:26 | PDOC ---
Exam Note: Pasha Note: This note is a late entry for 09/08/2020 covers elements not covered in my initial note. Subjective: The patient was seen face to face in the morning of 09/08/2020 for treatment team meeting with Milli Carpenter and Connie (social media marketing specialist), Sandi, Activity Therapy and Mala RN. Discussed with nursing staff, reviewed the chart. Nursing report was with Jere OCONNOR in the evening. The patients mother Radha attended the treatment team meeting and we had a lengthy discussion about the patients symptoms, behaviours prompting admission including his volatility, anger and aggression, preoccupation with wanting to play video games and have the television for himself all the time. His sleeping average is 7-1/2 hours. Appetite is 100%. 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 He is no longer able to work there and mother has sold off all his tools. Mother felt patients impulsivity, behavioral dyscontrol has been worse and she was started on Keppra for seizures. Review of Systems: No CV, , pulmonary, eye system symptoms on review. Mental Status Exam: Reasonably oriented. Speech is coherent, rapid at times. As I met with him individually he was apologetic about the prior day stating he mistook me for someone else. Abstraction is fair. Computation impaired. Attention span is somewhat short. No suicidal or homicidal ideation. Laboratory Data: Reviewed. Impression: Bipolar disorder mixed with psychotic features. Impulse control disorder. Anxiety disorder unspecified. Plan: Continue psychotropics from initial note. We may consult Dr. Flores, Neurology to see if Keppra could be tapered once we are therapeutic on the Depakote. Adjust further as clinically indicated. Assessment: Vital Signs/I&O: Vital Signs Date Time Temp Pulse Resp B/P (MAP) Pulse Ox O2 Delivery O2 Flow Rate FiO2 09/10/20 06:00 97.6 95 18 145/83 (103) 96 Room Air I & O 09/09/20 09/09/20 09/10/20 15:00 23:00 07:00 Intake Total 1175 ml 320 ml Balance 1175 ml 320 ml Labs: Laboratory Tests Test 09/09/20 07:49 Glucose (Fingerstick) 217 mg/dL (70-99) H Current Medications: I have reviewed the current psychotropics carefully including drug interactions. Risk benefit ratio favors no change other than as noted in my dictated progress note. Diagnosis: Problems: (1) Bipolar affective disorder, mixed (2) Anxiety disorder, unspecified (3) Impulse control disorder, unspecified (4) Bipolar disorder, curr episode mixed, severe, with psychotic features SHARRI GARCIA MD Sep 10, 2020 07:26
--- NOTE | 2020-09-10 07:39 | PDOC ---
Exam Note: Pasha Note: This note is a late entry for 09/09/2020 covers elements not covered in my initial note. Subjective: The patient was seen face to face in the evening of 09/09/2020 with Emerald OCONNOR. He slept 7-3/4 hours previous night. The patient has been anxious, restless, very busy in and out of the room, some pressured speech. Review of Systems: No CV, , pulmonary, eye system symptoms on review. Mental Status Exam: Oriented to himself and situation. The patient is somewhat sedated in his room. Speech rapid at times. Abstraction is fair. Computation impaired. Language function is intact. Attention span is short. Mood and affect somewhat labile. Laboratory Data: Reviewed. Impression: Bipolar disorder mixed with psychotic features. Impulse control disorder. Anxiety disorder unspecified. Status post CVA. Expressive aphasia. Mild cognitive impairment. Plan: Continue psychotropics from initial note. Maintain Abilify, Prozac, Kepp ra, trazodone and Depakote has been initiated and if this gets therapeutic we may consider tapering the Keppra since the latter could be increasing his irritability. Assessment: Vital Signs/I&O: Vital Signs Date Time Temp Pulse Resp B/P (MAP) Pulse Ox O2 Delivery O2 Flow Rate FiO2 09/10/20 06:00 97.6 95 18 145/83 (103) 96 Room Air I & O 09/09/20 09/09/20 09/10/20 15:00 23:00 07:00 Intake Total 1175 ml 320 ml Balance 1175 ml 320 ml Labs: Laboratory Tests Test 09/09/20 07:49 Glucose (Fingerstick) 217 mg/dL (70-99) H Current Medications: I have reviewed the current psychotropics carefully including drug interactions. Risk benefit ratio favors no change other than as noted in my dictated progress note. Diagnosis: Problems: (1) Bipolar affective disorder, mixed (2) Anxiety disorder, unspecified (3) Impulse control disorder, unspecified (4) Bipolar disorder, curr episode mixed, severe, with psychotic features SHARRI GARCIA MD Sep 10, 2020 07:39
[2020-09-10 08:50] LABS: BASO # 0.1 x10^3/uL (0.0-0.2); BASO % 1 % (0-3); EOS # 0.1 x10^3/uL (0.0-0.7); EOS % 1 % (0-3); HEMATOCRIT 45.6 % (39.0-53.0); HEMOGLOBIN 14.7 g/dL (13.0-17.5); LYMPH # 1.3 x10^3/uL (1.0-4.8); LYMPH % 18 % (24-48); MEAN CORPUSCULAR HEMOGLOBIN 29 pg (25-35); MEAN CORPUSCULAR HGB CONC 32 g/dL (31-37); MEAN CORPUSCULAR VOLUME 90 fL (79-100); MONO # 0.5 x10^3/uL (0.0-1.1); MONO % 7 % (0-9); NEUT # 5.4 x10^3uL (1.8-7.7); NEUT % 73 % (31-73); PLATELET COUNT 280 x10^3/uL (140-400); RED BLOOD COUNT 5.06 x10^6/uL (4.30-5.70); RED CELL DISTRIBUTION WIDTH 13.9 % (11.5-14.5); WHITE BLOOD COUNT 7.3 x10^3/uL (4.0-11.0)
[2020-09-10] MEDS: EMPAGLIFLOZIN 12.5 MG PO SCH (09:00)
[2020-09-10] MEDS: ASPIRIN CHEWABLE 81 MG TABLET. PO SCH (09:03)
[2020-09-10] MEDS: FLUoxetine HCL 10 MG CAPSULE PO SCH (09:03)
[2020-09-10] MEDS: LACTOBACILLUS RHAMNOSUS GG 1 CAPSULE. PO SCH ×2 (09:03→20:49)
[2020-09-10] MEDS: TAMSULOSIN 0.4 MG CAP.ER.24H. PO SCH (09:03)
[2020-09-10] MEDS: levETIRAcetam 250 MG TABLET PO SCH ×2 (09:03→20:50)
[2020-09-10] MEDS: glipiZIDE 5 MG TABLET PO SCH ×3 (09:03→20:50)
[2020-09-10] MEDS: MUPIROCIN 2% TOPICAL OINTMENT 22GM TUBE. TP SCH ×2 (09:03→20:53)
[2020-09-10] MEDS: ARIPiprazole 5 MG TABLET PO SCH (09:03)
[2020-09-10] MEDS: metFORMIN 500 MG TABLET PO SCH (09:03)
[2020-09-10] MEDS: PYRIDOXINE 50 MG TABLET. PO SCH (09:05)
[2020-09-10 09:06] LABS: ALBUMIN 3.7 g/dL (3.4-5.0); ALK PHOS 89 U/L (46-116); ALT (SGPT) 60 U/L (16-63); ANION GAP 9 (6-14); AST (SGOT) 20 U/L (15-37); BLOOD UREA NITROGEN 14 mg/dL (8-26); BUN/CREATININE RATIO 12 (6-20); CALCIUM 9.4 mg/dL (8.5-10.1); CARBON DIOXIDE 26 mmol/L (21-32); CHLORIDE 102 mmol/L (98-107); CREATININE 1.2 mg/dL (0.7-1.3); GFR 62.9; GLUCOSE 229 mg/dL (70-99); POTASSIUM 4.5 mmol/L (3.5-5.1); SODIUM 137 mmol/L (136-145); TOTAL BILIRUBIN 0.3 mg/dL (0.2-1.0); TOTAL PROTEIN 7.5 g/dL (6.4-8.2)
[2020-09-10 09:08] LABS: VAL ACID 25 mcg/mL (50-100)
--- NOTE | 2020-09-10 11:38 | NUR ---
Pt is calm, cooperative, and compliant. No agitation, no aggression, no hallucinations, no delusions noted. He is compliant with his medication and assessment.
[2020-09-10 15:40] VITALS: BP 139/81
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
[2020-09-10] MEDS: ATORVASTATIN CALCIUM 20 MG TABLET PO SCH (20:49)
[2020-09-10] MEDS: DIVALPROEX ER 500 MG TAB.ER.24H PO SCH (20:49)
[2020-09-10] MEDS: traZODone 50 MG TABLET. PO PRN (20:50)
--- NOTE | 2020-09-10 21:41 | PDOC ---
Exam Note: Pasha Note: Please also refer to the separate dictated note~for this date of service dictated separately.~Patient seen individually. Discussed the patient with Nursing staff reviewed the chart.~Reviewed interim history and current functioning. Reviewed vital signs,~Labs/ Radiology~and current medications noted below. Continue current treatment with the changes noted in the dictated addendum note Assessment: Vital Signs/I&O: Vital Signs Date Time Temp Pulse Resp B/P (MAP) Pulse Ox O2 Delivery O2 Flow Rate FiO2 09/10/20 15:40 97.9 85 18 139/81 (100) 97 Room Air I & O 09/09/20 09/09/20 09/10/20 15:00 23:00 07:00 Intake Total 1175 ml 320 ml Balance 1175 ml 320 ml Labs: Laboratory Tests Test 09/10/20 07:49 09/10/20 08:01 White Blood Count 7.3 x10^3/uL (4.0-11.0) Red Blood Count 5.06 x10^6/uL (4.30-5.70) Hemoglobin 14.7 g/dL (13.0-17.5) Hematocrit 45.6 % (39.0-53.0) Mean Corpuscular Volume 90 fL (79-100) Mean Corpuscular Hemoglobin 29 pg (25-35) Mean Corpuscular Hemoglobin Concent 32 g/dL (31-37) Red Cell Distribution Width 13.9 % (11.5-14.5) Platelet Count 280 x10^3/uL (140-400) Neutrophils (%) (Auto) 73 % (31-73) Lymphocytes (%) (Auto) 18 % (24-48) L Monocytes (%) (Auto) 7 % (0-9) Eosinophils (%) (Auto) 1 % (0-3) Basophils (%) (Auto) 1 % (0-3) Neutrophils # (Auto) 5.4 x10^3uL (1.8-7.7) Lymphocytes # (Auto) 1.3 x10^3/uL (1.0-4.8) Monocytes # (Auto) 0.5 x10^3/uL (0.0-1.1) Eosinophils # (Auto) 0.1 x10^3/uL (0.0-0.7) Basophils # (Auto) 0.1 x10^3/uL (0.0-0.2) Sodium Level 137 mmol/L (136-145) Potassium Level 4.5 mmol/L (3.5-5.1) Chloride Level 102 mmol/L (98-107) Carbon Dioxide Level 26 mmol/L (21-32) Anion Gap 9 (6-14) Blood Urea Nitrogen 14 mg/dL (8-26) Creatinine 1.2 mg/dL (0.7-1.3) Estimated GFR (Cockcroft-Gault) 62.9 BUN/Creatinine Ratio 12 (6-20) Glucose Level 229 mg/dL (70-99) H Calcium Level 9.4 mg/dL (8.5-10.1) Total Bilirubin 0.3 mg/dL (0.2-1.0) Aspartate Amino Transferase (AST) 20 U/L (15-37) Alanine Aminotransferase (ALT) 60 U/L (16-63) Alkaline Phosphatase 89 U/L (46-116) Total Protein 7.5 g/dL (6.4-8.2) Albumin 3.7 g/dL (3.4-5.0) Albumin/Globulin Ratio 1.0 (1.0-1.7) Valproic Acid Level 25 mcg/mL (50-100) L Valproic Acid Last Dose Date 09/09/20 Valproic Acid Last Dose Time 2100 Glucose (Fingerstick) 218 mg/dL (70-99) H Current Medications: Meds: Current Medications Medications (Trade) Dose Ordered Sig/Joseph Route PRN Reason Start Time Stop Time Status Last Admin Dose Admin Divalproex Sodium (Depakote Er) 1,000 mg QHS PO 09/10/20 21:00 09/10/20 20:49 I have reviewed the current psychotropics carefully including drug interactions. Risk benefit ratio favors no change other than as noted in my dictated progress note. Diagnosis: Problems: (1) Bipolar affective disorder, mixed (2) Anxiety disorder, unspecified (3) Impulse control disorder, unspecified (4) Bipolar disorder, curr episode mixed, severe, with psychotic features SHARRI GARCIA MD Sep 10, 2020 21:41
--- NOTE | 2020-09-11 01:36 | NUR ---
Nursing Note The patient was calm and compliant with his assessment and medication pass. The patient took his medication whole. The patient displayed some difficulty during verbal communication but was able to use alternative methods such as hand gestures to communicate. The patient is currently sleeping in his room.
[2020-09-11 06:00] VITALS: BP 119/75
[2020-09-11] MEDS: ARIPiprazole 5 MG TABLET PO SCH (08:52)
[2020-09-11] MEDS: levETIRAcetam 250 MG TABLET PO SCH ×2 (08:53→20:53)
[2020-09-11] MEDS: glipiZIDE 5 MG TABLET PO SCH ×3 (08:53→17:22)
[2020-09-11] MEDS: FLUoxetine HCL 10 MG CAPSULE PO SCH (08:53)
[2020-09-11] MEDS: MUPIROCIN 2% TOPICAL OINTMENT 22GM TUBE. TP SCH ×2 (08:53→21:01)
[2020-09-11] MEDS: LACTOBACILLUS RHAMNOSUS GG 1 CAPSULE. PO SCH ×2 (08:53→20:53)
[2020-09-11] MEDS: TAMSULOSIN 0.4 MG CAP.ER.24H. PO SCH (08:53)
[2020-09-11] MEDS: metFORMIN 500 MG TABLET PO SCH ×2 (08:53→17:23)
[2020-09-11] MEDS: ASPIRIN CHEWABLE 81 MG TABLET. PO SCH (08:53)
[2020-09-11] MEDS: PYRIDOXINE 50 MG TABLET. PO SCH (08:54)
[2020-09-11] MEDS: EMPAGLIFLOZIN 12.5 MG PO SCH (09:00)
--- NOTE | 2020-09-11 10:23 | NUR ---
No hallucination or delusions noted. She is compliant with her medication and assessment. Pt is calm, cooperative, and compliant. No agitation or aggression.
[2020-09-11 15:49] VITALS: BP 136/79
[2020-09-11] MEDS: DIVALPROEX ER 500 MG TAB.ER.24H PO SCH (20:54)
[2020-09-11] MEDS: ATORVASTATIN CALCIUM 20 MG TABLET PO SCH (20:54)
[2020-09-11] MEDS: traZODone 50 MG TABLET. PO PRN (20:56)
--- NOTE | 2020-09-11 22:08 | PDOC ---
Exam Note: Pasha Note: Please also refer to the separate dictated note~for this date of service dictated separately.~Patient seen individually. Discussed the patient with Nursing staff reviewed the chart.~Reviewed interim history and current functioning. Reviewed vital signs,~Labs/ Radiology~and current medications noted below. Continue current treatment with the changes noted in the dictated addendum note Assessment: Vital Signs/I&O: Vital Signs Date Time Temp Pulse Resp B/P (MAP) Pulse Ox O2 Delivery O2 Flow Rate FiO2 09/11/20 15:49 97.3 78 18 136/79 (98) 99 09/11/20 06:00 Room Air I & O 09/10/20 09/10/20 09/11/20 14:59 22:59 06:59 Intake Total 1020 ml 1240 ml Balance 1020 ml 1240 ml Labs: Laboratory Tests Test 09/11/20 08:18 09/11/20 19:33 Glucose (Fingerstick) 228 mg/dL (70-99) H 289 mg/dL (70-99) H Current Medications: Meds: Current Medications Medications (Trade) Dose Ordered Sig/Joseph Route PRN Reason Start Time Stop Time Status Last Admin Dose Admin Glipizide (Glucotrol) 10 mg BIDBFRMEAL PO 09/11/20 16:30 09/11/20 17:22 Metformin HCl (Glucophage) 500 mg BIDBFRMEAL PO 09/11/20 16:30 09/11/20 17:23 I have reviewed the current psychotropics carefully including drug interactions. Risk benefit ratio favors no change other than as noted in my dictated progress note. Diagnosis: Problems: (1) Bipolar affective disorder, mixed (2) Anxiety disorder, unspecified (3) Impulse control disorder, unspecified (4) Bipolar disorder, curr episode mixed, severe, with psychotic features SHARRI GARCIA MD Sep 11, 2020 22:08
--- NOTE | 2020-09-11 23:08 | NUR ---
Pt located in his room this evening. Compliant with whole medications. Pt has expressive aphasia and gets frustrated easily. Pt able to communicate that he is "bored", that he "does not get to watch TV" and has "nothing to do during the day." This RN offered pt the emory this evening, which he refused.
[2020-09-12 06:00] VITALS: BP 111/71
--- NOTE | 2020-09-12 06:40 | PDOC ---
Exam Note: Pasha Note: This note is a late entry for 09/10/2020 covers elements not covered in my initial note. Subjective: The patient was seen face to face in the evening of 09/10/2020 with Abdirahman OCONNOR. He slept 7-1/4 hours previous night. The patient has had a good day. He has been keeping himself busy with coloring and at times listening to music on emory. Valproic acid level is 25 on Depakote ER 500 mg h.s. We will increase to 1000 mg h.s. of the ER. Check CBC, CMP, valproic acid level in 3 days, and then adjust further. It does appear that the patients irritability worsens since she is started on Keppra. Once the Depakote is therapeutic we may consider tapering and stopping the Keppra. Review of Systems: No CV, , pulmonary, eye system symptoms on review. Mental Status Exam: Oriented to himself and situation. The patient is somewhat withdrawn in bed but per nursing report he does have expressive aphasia. Speech is otherwise coherent. Abstraction is fair. Computation impaired. Language function is intact. Attention span is short. Laboratory Data: Reviewed. Impression: Bipolar disorder mixed with psychotic features. Impulse control disorder. Anxiety disorder unspecified. Status post CVA. Expressive aphasia. Mild cognitive impairment. Plan: Adjust the Depakote as noted and continue rest psychotropics unchanged. Assessment: Vital Signs/I&O: Vital Signs Date Time Temp Pulse Resp B/P (MAP) Pulse Ox O2 Delivery O2 Flow Rate FiO2 09/12/20 06:00 97.6 99 16 111/71 (84) 97 Room Air I & O 09/11/20 09/11/20 09/12/20 15:00 23:00 07:00 Intake Total 600 ml 340 ml Balance 600 ml 340 ml Labs: Laboratory Tests Test 09/11/20 08:18 09/11/20 19:33 Glucose (Fingerstick) 228 mg/dL (70-99) H 289 mg/dL (70-99) H Current Medications: Meds: Current Medications Medications (Trade) Dose Ordered Sig/Joseph Route PRN Reason Start Time Stop Time Status Last Admin Dose Admin Glipizide (Glucotrol) 10 mg BIDBFRMEAL PO 09/11/20 16:30 09/11/20 17:22 Metformin HCl (Glucophage) 500 mg BIDBFRMEAL PO 09/11/20 16:30 09/11/20 17:23 I have reviewed the current psychotropics carefully including drug interactions. Risk benefit ratio favors no change other than as noted in my dictated progress note. Diagnosis: Problems: (1) Bipolar affective disorder, mixed (2) Anxiety disorder, unspecified (3) Impulse control disorder, unspecified (4) Bipolar disorder, curr episode mixed, severe, with psychotic features SHARRI GARCIA MD Sep 12, 2020 06:39
--- NOTE | 2020-09-12 08:39 | PN ---
DATE: 09/10/2020 SUBJECTIVE: The patient denies any new medical neurological complaints. He has not had any recurrent seizure since admission. He eats and drinks well. OBJECTIVE: GENERAL: Well-developed, well-nourished male, not in acute distress. VITAL SIGNS: Blood pressure 120/85, respiratory rate 17, pulse is 83 and regular, temperature 97.6, oxygen saturation 98% on room air. HEENT: Normocephalic, atraumatic, otherwise unremarkable. NECK: Supple. Negative for carotid bruit, lymphadenopathy or thyromegaly. LUNGS: Clear to A and P. CARDIOVASCULAR: Regular rate and rhythm, normal S1, S2. ABDOMEN: Soft. Bowel sounds positive. EXTREMITIES: Negative for cyanosis, clubbing or edema. NEUROLOGICAL EXAM: Mental Status: The patient is alert and oriented x 2. Speech is with expressive aphasia. Patient follows 1-step commands. He has difficulty completing sentences and sometimes difficulty finding names due to expressive aphasia. Cranial nerves are intact. No focal motor or sensory deficits. Deep tendon reflexes were symmetric and hypoactive with absent Achilles responses. Gait and coordination are normal. IMPRESSION: 1. Seizure disorder due to previous stroke, last seizure was in 05/2020. The patient has been on Keppra 750 mg. 2. Multiple medical problems include hypertension, hyperlipidemia, bipolar disorder, anxiety disorder, stroke 2 years ago, probably hemorrhagic type, required left frontal craniotomy. RECOMMENDATIONS: 1. I will continue with current medical and psychiatric care. Continue with Keppra 750 mg b.i.d. 2. Await electroencephalogram. M Elio HO MD DR: ROSENDA/marco JOB#: [id number] / [id number]
[2020-09-12] MEDS: glipiZIDE 5 MG TABLET PO SCH ×2 (08:40→17:05)
[2020-09-12] MEDS: ARIPiprazole 5 MG TABLET PO SCH (08:40)
[2020-09-12] MEDS: MUPIROCIN 2% TOPICAL OINTMENT 22GM TUBE. TP SCH ×2 (08:40→20:58)
[2020-09-12] MEDS: metFORMIN 500 MG TABLET PO SCH ×2 (08:40→17:05)
[2020-09-12] MEDS: ASPIRIN CHEWABLE 81 MG TABLET. PO SCH (08:40)
[2020-09-12] MEDS: levETIRAcetam 250 MG TABLET PO SCH ×2 (08:41→20:57)
[2020-09-12] MEDS: TAMSULOSIN 0.4 MG CAP.ER.24H. PO SCH (08:41)
[2020-09-12] MEDS: FLUoxetine HCL 10 MG CAPSULE PO SCH (08:41)
[2020-09-12] MEDS: LACTOBACILLUS RHAMNOSUS GG 1 CAPSULE. PO SCH ×2 (08:41→20:57)
[2020-09-12] MEDS: PYRIDOXINE 50 MG TABLET. PO SCH (08:42)
[2020-09-12] MEDS: EMPAGLIFLOZIN 12.5 MG PO SCH (09:00)
--- NOTE | 2020-09-12 09:26 | NUR ---
Pt is calm, cooperative, and compliant. No agitation, no aggression, no hallucinations, no delusions noted. He is compliant with his medication and assessment.
--- NOTE | 2020-09-12 09:33 | PN ---
DATE: 09/09/2020 SUBJECTIVE: The patient denies any new medical or neurological complaints. Talking to the family members, the patient has 2 seizures in 05/2020. Currently, he denies any new medical or neurological complaints. OBJECTIVE: GENERAL: Well-developed, well-nourished male, not in acute distress. VITAL SIGNS: Blood pressure is 120/85, respiratory rate 17, pulse is 83, oxygen saturation 98% on room air, and temperature 97.6. HEENT: Normocephalic and atraumatic, otherwise unremarkable. NECK: Supple. Negative for carotid bruit, lymphadenopathy or thyromegaly. LUNGS: Clear to A and P. CARDIOVASCULAR: Regular rate and rhythm, normal S1 and S2. There is no S3, S4 or murmur. ABDOMEN: Soft. Bowel sounds positive. EXTREMITIES: Negative for cyanosis, clubbing or edema. NEUROLOGICAL EXAM: Mental Status: The patient is alert and oriented to himself and situation. He does have expressive aphasia. He follows 1-step commands. He has some difficulty completing sentences, but he names several objects. Memory, judgment, and abstracting thinking are fair. Cranial nerves are intact. No focal motor or sensory deficits. Deep tendon reflexes were symmetric and hypoactive with absent Achilles responses. Gait and coordination are normal. IMPRESSION: 1. Seizure disorder, last seizure was in 05/2020. The patient is on Keppra 750 mg twice daily. The seizure is most likely due to previous stroke and postoperative craniotomy. 2. Multiple medical problems include hypertension, diabetes mellitus, hyperlipidemia, bipolar disorder, anxiety disorder and expressive aphasia. RECOMMENDATION: 1. To determine the seizure activities, the patient should have an electroencephalogram. 2. Continue with current medical and psychiatric care. M Elio OH MD DR: ROSENDA/marco JOB#: [id number] / [id number]
[2020-09-12 16:00] VITALS: BP 144/79
[2020-09-12] MEDS: DIVALPROEX ER 500 MG TAB.ER.24H PO SCH (20:56)
[2020-09-12] MEDS: ATORVASTATIN CALCIUM 20 MG TABLET PO SCH (20:57)
[2020-09-12] MEDS: traZODone 50 MG TABLET. PO PRN (20:58)
--- NOTE | 2020-09-12 22:07 | PDOC ---
Exam Note: Pasha Note: Please also refer to the separate dictated note~for this date of service dictated separately.~Patient seen individually. Discussed the patient with Nursing staff reviewed the chart.~Reviewed interim history and current functioning. Reviewed vital signs,~Labs/ Radiology~and current medications noted below. Continue current treatment with the changes noted in the dictated addendum note Assessment: Vital Signs/I&O: Vital Signs Date Time Temp Pulse Resp B/P (MAP) Pulse Ox O2 Delivery O2 Flow Rate FiO2 09/12/20 16:00 97.7 87 18 144/79 (100) 98 09/12/20 06:00 Room Air I & O 09/11/20 09/11/20 09/12/20 15:00 23:00 07:00 Intake Total 600 ml 340 ml Balance 600 ml 340 ml Labs: Laboratory Tests Test 09/12/20 06:00 09/12/20 07:48 Coronavirus (PCR) Not detected (Not Detected) Glucose (Fingerstick) 201 mg/dL (70-99) H Current Medications: I have reviewed the current psychotropics carefully including drug interactions. Risk benefit ratio favors no change other than as noted in my dictated progress note. Diagnosis: Problems: (1) Bipolar affective disorder, mixed (2) Anxiety disorder, unspecified (3) Impulse control disorder, unspecified (4) Bipolar disorder, curr episode mixed, severe, with psychotic features SHARRI GARCIA MD Sep 12, 2020 22:07
--- NOTE | 2020-09-12 23:14 | NUR ---
Pt calm and pleasant this evening. Continues to get frustrated at times d/t his aphasia. Pt taken to the group room this evening where he was able to watch TV. Pt very appreciative and thankful. Compliant with whole medications.
[2020-09-13 06:05] VITALS: BP 114/71
--- NOTE | 2020-09-13 06:38 | PDOC ---
Exam Note: Pasha Note: This note is a late entry for 09/11/2020 covers elements not covered in my initial note. Subjective: The patient was seen face to face in the evening of 09/11/2020 with Deisy OCONNOR. He slept 7-1/2 hours previous night. Discussed the patient with nursing staff, reviewed the chart. He did well previous night and also during the day. He has been somewhat obsessive, hoarding things. Review of Systems: No CV, , pulmonary, eye, ENT system symptoms on review. Mental Status Exam: Oriented to himself and situation. Speech remains somewhat rapid, distractible. No suicidal or homicidal ideation. Abstraction is fair. Computation impaired. Language function is intact. Attention span is short. Laboratory Data: Reviewed. Impression: Bipolar disorder mixed with psychotic features. Impulse control disorder. Anxiety disorder unspecified. Status post CVA. Expressive aphasia. Mild cognitive impairment. Plan: Continue rest psychotropics unchanged. Assessment: Vital Signs/I&O: Vital Signs Date Time Temp Pulse Resp B/P (MAP) Pulse Ox O2 Delivery O2 Flow Rate FiO2 09/13/20 06:05 97.3 91 20 114/71 (85) 96 09/12/20 06:00 Room Air I & O 09/12/20 09/12/20 09/13/20 15:00 23:00 07:00 Intake Total 1080 ml 560 ml Balance 1080 ml 560 ml Labs: Laboratory Tests Test 09/12/20 07:48 Glucose (Fingerstick) 201 mg/dL (70-99) H Current Medications: I have reviewed the current psychotropics carefully including drug interactions. Risk benefit ratio favors no change other than as noted in my dictated progress note. Diagnosis: Problems: (1) Bipolar affective disorder, mixed (2) Anxiety disorder, unspecified (3) Impulse control disorder, unspecified (4) Bipolar disorder, curr episode mixed, severe, with psychotic features SHARRI GARCIA MD Sep 13, 2020 06:37
[2020-09-13 07:04] LABS: VAL ACID 46 mcg/mL (50-100)
--- NOTE | 2020-09-13 07:05 | PDOC ---
Exam Note: Pasha Note: This note is a late entry for 09/12/2020 covers elements not covered in my initial note. Subjective: The patient was seen face to face in the evening of 09/12/2020 with Deisy OCONNOR. He slept [address] Flores is getting an EEG done. Nursing staff have given him some janitorial task to keep him active around the unit and he seemed very pleased with this as I met with him in the evening. Review of Systems: No CV, , pulmonary, eye, ENT system symptoms on review. Mental Status Exam: Oriented to himself and situation. The patient is somewhat withdrawn in bed but per nursing report he does have expressive aphasia. Speech is otherwise coherent. Abstraction is fair. Computation impaired. Language function is intact. Attention span is short. Laboratory Data: Reviewed. Impression: Bipolar disorder mixed with psychotic features. Impulse control disorder. Anxiety disorder unspecified. Status post CVA. Expressive aphasia. Mild cognitive impairment. Plan: No change from initial note. Assessment: Vital Signs/I&O: Vital Signs Date Time Temp Pulse Resp B/P (MAP) Pulse Ox O2 Delivery O2 Flow Rate FiO2 09/13/20 06:05 97.3 91 20 114/71 (85) 96 09/12/20 06:00 Room Air I & O 09/12/20 09/12/20 09/13/20 15:00 23:00 07:00 Intake Total 1080 ml 560 ml Balance 1080 ml 560 ml Labs: Laboratory Tests Test 09/12/20 07:48 Glucose (Fingerstick) 201 mg/dL (70-99) H Current Medications: I have reviewed the current psychotropics carefully including drug interactions. Risk benefit ratio favors no change other than as noted in my dictated progress note. Diagnosis: Problems: (1) Bipolar affective disorder, mixed (2) Anxiety disorder, unspecified (3) Impulse control disorder, unspecified (4) Bipolar disorder, curr episode mixed, severe, with psychotic features SHARRI GARCIA MD Sep 13, 2020 07:05
[2020-09-13] MEDS: EMPAGLIFLOZIN 12.5 MG PO SCH (08:16)
[2020-09-13] MEDS: metFORMIN 500 MG TABLET PO SCH ×2 (08:17→16:57)
[2020-09-13] MEDS: LACTOBACILLUS RHAMNOSUS GG 1 CAPSULE. PO SCH ×2 (08:18→20:28)
[2020-09-13] MEDS: glipiZIDE 5 MG TABLET PO SCH ×2 (08:18→16:58)
[2020-09-13] MEDS: ARIPiprazole 5 MG TABLET PO SCH (08:18)
[2020-09-13] MEDS: ASPIRIN CHEWABLE 81 MG TABLET. PO SCH (08:18)
[2020-09-13] MEDS: levETIRAcetam 250 MG TABLET PO SCH ×2 (08:18→20:28)
[2020-09-13] MEDS: PYRIDOXINE 50 MG TABLET. PO SCH (08:18)
[2020-09-13] MEDS: TAMSULOSIN 0.4 MG CAP.ER.24H. PO SCH (08:18)
[2020-09-13] MEDS: FLUoxetine HCL 10 MG CAPSULE PO SCH (08:20)
[2020-09-13] MEDS: MUPIROCIN 2% TOPICAL OINTMENT 22GM TUBE. TP SCH ×2 (08:21→20:30)
--- NOTE | 2020-09-13 10:51 | NUR ---
Pt is calm, cooperative, and compliant. No agitation, no aggression, no hallucinations, no delusions. He is compliant with his medication and assessment. As part of his behavior plan pt was able to successfully assist staff with simple cleaning duties today such as cleaning windows and empting trash and replacing the trash bag.
[2020-09-13 16:01] VITALS: BP 128/79
--- NOTE | 2020-09-13 16:26 | NUR ---
JOHN spoke with pt parent/DPOA to provide update. As requested JOHN provided list of medications and glucose readings. DPOA stated that prior to hospitalization, pt glucose was running around 170 on average. DPOA stated that she provided vanilla unsweetened almond milk for him to put in his coffee and she tried to limit his coffee intake as he would drink several cups in the morning if given the opportunity. Furthermore, DPOA stated that she tried to prevent him from eating too many carbs so that his glucose level wouldn't spike too high. JOHN provided DPOA with date and time frame for next tx team meeting. DPOA agreed to participate. Please call parent/DPOA Nury [phone] on 09/15/2020.
[2020-09-13] MEDS: ATORVASTATIN CALCIUM 20 MG TABLET PO SCH (20:27)
[2020-09-13] MEDS: DIVALPROEX ER 500 MG TAB.ER.24H PO SCH (20:28)
[2020-09-13] MEDS: traZODone 50 MG TABLET. PO PRN (20:28)
--- NOTE | 2020-09-13 21:58 | PDOC ---
Exam Note: Pasha Note: Please also refer to the separate dictated note~for this date of service dictated separately.~Patient seen individually. Discussed the patient with Nursing staff reviewed the chart.~Reviewed interim history and current functioning. Reviewed vital signs,~Labs/ Radiology~and current medications noted below. Continue current treatment with the changes noted in the dictated addendum note Assessment: Vital Signs/I&O: Vital Signs Date Time Temp Pulse Resp B/P (MAP) Pulse Ox O2 Delivery O2 Flow Rate FiO2 09/13/20 16:01 97.8 76 18 128/79 (95) 99 Room Air I & O 09/12/20 09/12/20 09/13/20 15:00 23:00 07:00 Intake Total 1080 ml 560 ml Balance 1080 ml 560 ml Labs: Laboratory Tests Test 09/13/20 06:24 09/13/20 07:46 09/13/20 12:12 Valproic Acid Level 46 mcg/mL (50-100) L Valproic Acid Last Dose Date 09/12/20 Valproic Acid Last Dose Time 2100 Glucose (Fingerstick) 216 mg/dL (70-99) H 203 mg/dL (70-99) H Current Medications: I have reviewed the current psychotropics carefully including drug interactions. Risk benefit ratio favors no change other than as noted in my dictated progress note. Diagnosis: Problems: (1) Bipolar affective disorder, mixed (2) Anxiety disorder, unspecified (3) Impulse control disorder, unspecified (4) Bipolar disorder, curr episode mixed, severe, with psychotic features SHARRI GARCIA MD Sep 13, 2020 21:58
--- NOTE | 2020-09-14 02:22 | NUR ---
Last evening pt was active on unit. He wants to help staff and peers and has been pleasant and cooperative. Meds were take whole without difficulty. He struggles with expressive aphasia but is able to make his needs known and is oriented. He has had no behaviors tonight.
[2020-09-14 05:31] VITALS: BP 112/72
[2020-09-14] MEDS: EMPAGLIFLOZIN 12.5 MG PO SCH (09:00)
[2020-09-14] MEDS: metFORMIN 500 MG TABLET PO SCH ×2 (09:05→16:56)
[2020-09-14] MEDS: TAMSULOSIN 0.4 MG CAP.ER.24H. PO SCH (09:06)
[2020-09-14] MEDS: levETIRAcetam 250 MG TABLET PO SCH (09:06)
[2020-09-14] MEDS: LACTOBACILLUS RHAMNOSUS GG 1 CAPSULE. PO SCH ×2 (09:06→20:18)
[2020-09-14] MEDS: ARIPiprazole 5 MG TABLET PO SCH (09:06)
[2020-09-14] MEDS: FLUoxetine HCL 10 MG CAPSULE PO SCH (09:06)
[2020-09-14] MEDS: glipiZIDE 5 MG TABLET PO SCH ×2 (09:06→16:57)
[2020-09-14] MEDS: PYRIDOXINE 50 MG TABLET. PO SCH (09:06)
[2020-09-14] MEDS: MUPIROCIN 2% TOPICAL OINTMENT 22GM TUBE. TP SCH ×2 (09:07→20:17)
[2020-09-14] MEDS: ASPIRIN CHEWABLE 81 MG TABLET. PO SCH (09:07)
--- NOTE | 2020-09-14 10:44 | NUR ---
SW visited with pt this am. Pt pleasant to talk with. He shared his communication board with SW. Pt was showing SW how he could take pictures with it to help him express who people were. SW reviewed with pt the importance of not taking pictures of other patients d/t confidentiality concerns. Pt agreed not to and stated that he understood. We, further, reviewed a few other items that were of benefit to him in his communication board. 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 He stated that he didn't understand why he hasn't talked with his boss. SW asked him if he believed in not spending too much time focusing on the past, but spending more time focusing on the future. 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 Pt stated that he has done some things like that in the past. As he was trying to express things that he has done, SW redirected the conversation by letting him know that it appears that he enjoys being a helpful person, but that it was also okay to let others help him. Pt made eye contact with SW and was willing to accept conversation. SW told pt that we would try to help him focus on things that he can do in his future. Pt reported that it was hard and SW verified his feelings, but reminded him of the importance of continuing to work hard. Pt accepted.
[2020-09-14 16:18] VITALS: BP 142/82
--- NOTE | 2020-09-14 18:30 | NUR ---
Patient usually calm, compliant, and cooperative; occasionally anxious. He spent time walking in the halls for exercise, was very enthusiastic about helping pass out and collect meal trays, and participated in groups. Patient was occasionally frustrated with his expressive aphasia. Will continue to monitor and report to oncoming shift.
[2020-09-14] MEDS: ATORVASTATIN CALCIUM 20 MG TABLET PO SCH (20:17)
[2020-09-14] MEDS: DIVALPROEX ER 500 MG TAB.ER.24H PO SCH (20:18)
[2020-09-14] MEDS: levETIRAcetam 500 MG TABLET PO SCH (20:21)
--- NOTE | 2020-09-14 22:08 | PDOC ---
Exam Note: Pasha Note: Please also refer to the separate dictated note~for this date of service dictated separately.~Patient seen individually. Discussed the patient with Nursing staff reviewed the chart.~Reviewed interim history and current functioning. Reviewed vital signs,~Labs/ Radiology~and current medications noted below. Continue current treatment with the changes noted in the dictated addendum note Assessment: Vital Signs/I&O: Vital Signs Date Time Temp Pulse Resp B/P (MAP) Pulse Ox O2 Delivery O2 Flow Rate FiO2 09/14/20 16:18 97.6 87 18 142/82 (102) 18 09/13/20 16:01 Room Air I & O 09/13/20 09/13/20 09/14/20 15:00 23:00 07:00 Intake Total 720 ml 720 ml Balance 720 ml 720 ml Labs: Laboratory Tests Test 09/14/20 07:36 09/14/20 11:23 09/14/20 17:05 Glucose (Fingerstick) 250 mg/dL (70-99) H 240 mg/dL (70-99) H 127 mg/dL (70-99) H Current Medications: Meds: Current Medications Medications (Trade) Dose Ordered Sig/Joseph Route PRN Reason Start Time Stop Time Status Last Admin Dose Admin Metformin HCl (Glucophage) 1,000 mg BIDBFRMEAL PO 09/14/20 16:30 09/14/20 16:56 Divalproex Sodium (Depakote Er) 1,500 mg QHS PO 09/14/20 21:00 09/14/20 20:18 Levetiracetam (Keppra) 500 mg BID PO 09/14/20 21:00 09/14/20 20:21 I have reviewed the current psychotropics carefully including drug interactions. Risk benefit ratio favors no change other than as noted in my dictated progress note. Diagnosis: Problems: (1) Anxiety disorder, unspecified (2) Impulse control disorder, unspecified (3) Bipolar disorder, curr episode mixed, severe, with psychotic features SHARRI GARCIA MD Sep 14, 2020 22:08
--- NOTE | 2020-09-15 00:51 | NUR ---
Last evening pt was active on unit and helping peers if needed. He was tired early in evening possibly due to med changes and went to bed. He has has no behaviors tonight.
--- NOTE | 2020-09-15 06:14 | PDOC ---
Exam Note: Pasha Note: This note is a late entry for 09/13/2020 covers elements not covered in my initial note. Subjective: The patient was seen face to face in the evening of 09/13/2020 with Deisy OCONNOR. He slept 7 hours previous night. He did well previous night. He has been cleaning the railings along the [place] and the more he stays busy the less agitated he is. He is pleasant, compliant. He was seen by Dr. Flores, Neurology. EEG has been requested. Review of Systems: No CV, , pulmonary, eye, ENT system symptoms on review. He does have some expressive aphasia. Mental Status Exam: Oriented to himself and situation. Speech is otherwise coherent. Abstraction is fair. Computation impaired. Language function is intact. Attention span is somewhat short, at times somewhat hyperverbal. No suicidal or homicidal ideation. Laboratory Data: Reviewed. Impression: Bipolar disorder mixed with psychotic features. Impulse control disorder. Anxiety disorder unspecified. Status post CVA. Expressive aphasia. Mild cognitive impairment. Plan: No change from initial note. Assessment: Vital Signs/I&O: Vital Signs Date Time Temp Pulse Resp B/P (MAP) Pulse Ox O2 Delivery O2 Flow Rate FiO2 09/14/20 16:18 97.6 87 18 142/82 (102) 18 09/13/20 16:01 Room Air I & O 09/14/20 09/14/20 09/15/20 15:00 23:00 07:00 Intake Total 660 ml 600 ml Balance 660 ml 600 ml Labs: Laboratory Tests Test 09/14/20 07:36 09/14/20 11:23 09/14/20 17:05 Glucose (Fingerstick) 250 mg/dL (70-99) H 240 mg/dL (70-99) H 127 mg/dL (70-99) H Current Medications: Meds: Current Medications Medications (Trade) Dose Ordered Sig/Joseph Route PRN Reason Start Time Stop Time Status Last Admin Dose Admin Metformin HCl (Glucophage) 1,000 mg BIDBFRMEAL PO 09/14/20 16:30 09/14/20 16:56 Divalproex Sodium (Depakote Er) 1,500 mg QHS PO 09/14/20 21:00 09/14/20 20:18 Levetiracetam (Keppra) 500 mg BID PO 09/14/20 21:00 09/14/20 20:21 I have reviewed the current psychotropics carefully including drug interactions. Risk benefit ratio favors no change other than as noted in my dictated progress note. Diagnosis: Problems: (1) Bipolar affective disorder, mixed (2) Anxiety disorder, unspecified (3) Impulse control disorder, unspecified (4) Bipolar disorder, curr episode mixed, severe, with psychotic features SHARRI GARCIA MD Sep 15, 2020 06:14
[2020-09-15 06:15] VITALS: BP 134/80
--- NOTE | 2020-09-15 06:39 | PDOC ---
Exam Note: Pasha Note: This note is a late entry for 09/14/2020 covers elements not covered in my initial note. Subjective: The patient was seen face to face in the evening of 09/14/2020 with Jere OCONNOR. Discussed with nursing staff, reviewed the chart. He has not been agitated, quite helpful with others around him. Valproic acid level is 46 on Depakote ER 1000 mg h.s. We will increase to 1500 mg h.s. to reach therapeutic level. Check CBC, CMP, valproic acid level in 3 days. Adjust further to reach therapeutic level. He has been talking about playing the [place] etc. We will check with Dr. Flores to see if Keppra can be reduced since the mother is convinced his agitation worsens since this was initiated. We are adjusting the Depakote to reach therapeutic level. Hopefully that should compensate for seizure disorder in place of Keppra but I will leave the final decision to Dr. Flores. Review of Systems: No CV, , pulmonary, eye, ENT system symptoms on review. Mental Status Exam: Oriented to himself and situation. He was very pleasant, helpful, verbal as I met with him, but yes an element of expressive aphasia which increases his frustration. I discussed all of the above at length with him. Speech is otherwise coherent. Abstraction is fair. Computation impaired. Language function is intact. Attention span is short. Laboratory Data: Reviewed. Impression: Bipolar disorder mixed with psychotic features. Impulse control disorder. Anxiety disorder unspecified. Status post CVA. Expressive aphasia. Mild cognitive impairment. Plan: Continue current psychotropics with changes noted above. Assessment: Vital Signs/I&O: Vital Signs Date Time Temp Pulse Resp B/P (MAP) Pulse Ox O2 Delivery O2 Flow Rate FiO2 09/15/20 06:15 97.8 88 16 134/80 (98) 95 09/13/20 16:01 Room Air I & O 09/14/20 09/14/20 09/15/20 15:00 23:00 07:00 Intake Total 660 ml 600 ml Balance 660 ml 600 ml Labs: Laboratory Tests Test 09/14/20 07:36 09/14/20 11:23 09/14/20 17:05 Glucose (Fingerstick) 250 mg/dL (70-99) H 240 mg/dL (70-99) H 127 mg/dL (70-99) H Current Medications: Meds: Current Medications Medications (Trade) Dose Ordered Sig/Joseph Route PRN Reason Start Time Stop Time Status Last Admin Dose Admin Metformin HCl (Glucophage) 1,000 mg BIDBFRMEAL PO 09/14/20 16:30 09/14/20 16:56 Divalproex Sodium (Depakote Er) 1,500 mg QHS PO 09/14/20 21:00 09/14/20 20:18 Levetiracetam (Keppra) 500 mg BID PO 09/14/20 21:00 09/14/20 20:21 I have reviewed the current psychotropics carefully including drug interactions. Risk benefit ratio favors no change other than as noted in my dictated progress note. Diagnosis: Problems: (1) Bipolar affective disorder, mixed (2) Anxiety disorder, unspecified (3) Impulse control disorder, unspecified (4) Bipolar disorder, curr episode mixed, severe, with psychotic features SHARRI GARCIA MD Sep 15, 2020 06:39
[2020-09-15] MEDS: LACTOBACILLUS RHAMNOSUS GG 1 CAPSULE. PO SCH ×2 (07:59→20:18)
[2020-09-15] MEDS: metFORMIN 500 MG TABLET PO SCH ×2 (07:59→16:52)
[2020-09-15] MEDS: PYRIDOXINE 50 MG TABLET. PO SCH (07:59)
[2020-09-15] MEDS: TAMSULOSIN 0.4 MG CAP.ER.24H. PO SCH (07:59)
[2020-09-15] MEDS: levETIRAcetam 500 MG TABLET PO SCH ×2 (07:59→20:17)
[2020-09-15] MEDS: ASPIRIN CHEWABLE 81 MG TABLET. PO SCH (07:59)
[2020-09-15] MEDS: CHOLECALCIFEROL (VITAMIN D3) 50,000 UNIT CAPSULE PO SCH (07:59)
[2020-09-15] MEDS: glipiZIDE 5 MG TABLET PO SCH ×2 (07:59→16:52)
[2020-09-15] MEDS: ARIPiprazole 5 MG TABLET PO SCH (07:59)
[2020-09-15] MEDS: MUPIROCIN 2% TOPICAL OINTMENT 22GM TUBE. TP SCH ×2 (08:00→20:18)
[2020-09-15] MEDS: FLUoxetine HCL 10 MG CAPSULE PO SCH (08:00)
[2020-09-15] MEDS: EMPAGLIFLOZIN 12.5 MG PO SCH (09:00)
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
--- NOTE | 2020-09-15 13:49 | NUR ---
Patient usually calm, compliant, and cooperative; occasionally anxious and depressed. He spent time walking in the halls for exercise, and participated in groups. Patient was depressed early in the morning, staff reported he was talking to himself, berating himself about something to do with his sister. Patient had a improved affect after breakfast. [facility]
[2020-09-15 15:53] VITALS: BP 130/79
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
[2020-09-15] MEDS: ATORVASTATIN CALCIUM 20 MG TABLET PO SCH (20:17)
[2020-09-15] MEDS: DIVALPROEX ER 500 MG TAB.ER.24H PO SCH (20:17)
--- NOTE | 2020-09-15 21:53 | PDOC ---
Exam Note: Pasha Note: Please also refer to the separate dictated note~for this date of service dictated separately.~Patient seen individually. Discussed the patient with Nursing staff reviewed the chart.~Reviewed interim history and current functioning. Reviewed vital signs,~Labs/ Radiology~and current medications noted below. Continue current treatment with the changes noted in the dictated addendum note Assessment: Vital Signs/I&O: Vital Signs Date Time Temp Pulse Resp B/P (MAP) Pulse Ox O2 Delivery O2 Flow Rate FiO2 09/15/20 15:53 97.8 86 18 130/79 (96) 98 Room Air I & O 09/14/20 09/14/20 09/15/20 14:59 22:59 06:59 Intake Total 660 ml 600 ml Balance 660 ml 600 ml Labs: Laboratory Tests Test 09/15/20 07:41 09/15/20 12:10 Glucose (Fingerstick) 191 mg/dL (70-99) H 158 mg/dL (70-99) H Current Medications: I have reviewed the current psychotropics carefully including drug interactions. Risk benefit ratio favors no change other than as noted in my dictated progress note. Diagnosis: Problems: (1) Bipolar affective disorder, mixed (2) Anxiety disorder, unspecified (3) Impulse control disorder, unspecified (4) Bipolar disorder, curr episode mixed, severe, with psychotic features SHARRI GARCIA MD Sep 15, 2020 21:53
--- NOTE | 2020-09-16 02:07 | NUR ---
Last evening pt became irritated when he wanted to assist staff in lifting a peer and his help was declined out of concern for his safety. He went to his room and shut the door firmly. Awhile later he had calmed and was cooperative with his meds taken whole. A tablet was provided and he listened to music while preparing for bed.
[2020-09-16 06:19] VITALS: BP 120/76
[2020-09-16] MEDS: MUPIROCIN 2% TOPICAL OINTMENT 22GM TUBE. TP SCH ×2 (08:24→20:30)
[2020-09-16] MEDS: TAMSULOSIN 0.4 MG CAP.ER.24H. PO SCH (08:25)
[2020-09-16] MEDS: ARIPiprazole 5 MG TABLET PO SCH (08:25)
[2020-09-16] MEDS: glipiZIDE 5 MG TABLET PO SCH ×2 (08:25→16:44)
[2020-09-16] MEDS: ASPIRIN CHEWABLE 81 MG TABLET. PO SCH (08:25)
[2020-09-16] MEDS: metFORMIN 500 MG TABLET PO SCH ×2 (08:25→16:44)
[2020-09-16] MEDS: levETIRAcetam 500 MG TABLET PO SCH ×2 (08:25→20:29)
[2020-09-16] MEDS: LACTOBACILLUS RHAMNOSUS GG 1 CAPSULE. PO SCH ×2 (08:26→20:29)
[2020-09-16] MEDS: FLUoxetine HCL 10 MG CAPSULE PO SCH (08:26)
[2020-09-16] MEDS: PYRIDOXINE 50 MG TABLET. PO SCH (08:26)
[2020-09-16] MEDS: EMPAGLIFLOZIN 12.5 MG PO SCH (09:00)
[2020-09-16 15:52] VITALS: BP 146/75
--- NOTE | 2020-09-16 18:30 | NUR ---
Patient usually calm, compliant, and cooperative; occasionally anxious and depressed. He spent time walking in the halls for exercise, and participated in groups. Will continue to monitor and report to oncoming shift
[2020-09-16] MEDS: DIVALPROEX ER 500 MG TAB.ER.24H PO SCH (20:29)
[2020-09-16] MEDS: ATORVASTATIN CALCIUM 20 MG TABLET PO SCH (20:30)
--- NOTE | 2020-09-16 22:00 | PDOC ---
Exam Note: Pasha Note: Please also refer to the separate dictated note~for this date of service dictated separately.~Patient seen individually. Discussed the patient with Nursing staff reviewed the chart.~Reviewed interim history and current functioning. Reviewed vital signs,~Labs/ Radiology~and current medications noted below. Continue current treatment with the changes noted in the dictated addendum note Assessment: Vital Signs/I&O: Vital Signs Date Time Temp Pulse Resp B/P (MAP) Pulse Ox O2 Delivery O2 Flow Rate FiO2 09/16/20 15:52 97.1 84 16 146/75 (98) 97 Room Air I & O 09/15/20 09/15/20 09/16/20 15:00 23:00 07:00 Intake Total 665 ml 705 ml Balance 665 ml 705 ml Labs: Laboratory Tests Test 09/16/20 07:35 09/16/20 11:20 09/16/20 16:37 Glucose (Fingerstick) 163 mg/dL (70-99) H 169 mg/dL (70-99) H 139 mg/dL (70-99) H Current Medications: I have reviewed the current psychotropics carefully including drug interactions. Risk benefit ratio favors no change other than as noted in my dictated progress note. Diagnosis: Problems: (1) Bipolar affective disorder, mixed (2) Anxiety disorder, unspecified (3) Impulse control disorder, unspecified (4) Bipolar disorder, curr episode mixed, severe, with psychotic features SHARRI GARCIA MD Sep 16, 2020 22:00
--- NOTE | 2020-09-16 22:49 | NUR ---
Patient in his room on assumption of care. He is asleep, but arouses to name being called. Compliant with assessments and medications taken whole. No agitation. Denies any pain or discomfort. He appears to be sleeping comfortably at present time. Will continue to monitor.
[2020-09-17] MEDS: traZODone 50 MG TABLET. PO PRN (01:26)
[2020-09-17 06:24] VITALS: BP 120/72
[2020-09-17] MEDS: FLUoxetine HCL 10 MG CAPSULE PO SCH (08:18)
[2020-09-17] MEDS: ASPIRIN CHEWABLE 81 MG TABLET. PO SCH (08:18)
[2020-09-17] MEDS: glipiZIDE 5 MG TABLET PO SCH ×2 (08:18→17:16)
[2020-09-17] MEDS: levETIRAcetam 500 MG TABLET PO SCH ×2 (08:18→20:13)
[2020-09-17] MEDS: EMPAGLIFLOZIN 12.5 MG PO SCH (08:18)
[2020-09-17] MEDS: TAMSULOSIN 0.4 MG CAP.ER.24H. PO SCH (08:18)
[2020-09-17] MEDS: metFORMIN 500 MG TABLET PO SCH ×2 (08:18→17:16)
[2020-09-17] MEDS: LACTOBACILLUS RHAMNOSUS GG 1 CAPSULE. PO SCH ×2 (08:18→20:14)
[2020-09-17] MEDS: ARIPiprazole 5 MG TABLET PO SCH (08:18)
[2020-09-17] MEDS: MUPIROCIN 2% TOPICAL OINTMENT 22GM TUBE. TP SCH ×2 (08:19→20:13)
[2020-09-17] MEDS: PYRIDOXINE 50 MG TABLET. PO SCH (08:19)
[2020-09-17 15:42] VITALS: BP 147/92
[2020-09-17 19:26] LABS: BASO % 0 % (0-3); EOS # 0.1 x10^3/uL (0.0-0.7); EOS % 2 % (0-3); HEMATOCRIT 41.7 % (39.0-53.0); HEMOGLOBIN 13.5 g/dL (13.0-17.5); LYMPH # 1.5 x10^3/uL (1.0-4.8); LYMPH % 26 % (24-48); MEAN CORPUSCULAR HEMOGLOBIN 29 pg (25-35); MEAN CORPUSCULAR HGB CONC 32 g/dL (31-37); MEAN CORPUSCULAR VOLUME 90 fL (79-100); MONO # 0.5 x10^3/uL (0.0-1.1); MONO % 9 % (0-9); NEUT # 3.5 x10^3uL (1.8-7.7); NEUT % 63 % (31-73); PLATELET COUNT 211 x10^3/uL (140-400); RED BLOOD COUNT 4.65 x10^6/uL (4.30-5.70); RED CELL DISTRIBUTION WIDTH 13.7 % (11.5-14.5); WHITE BLOOD COUNT 5.5 x10^3/uL (4.0-11.0)
[2020-09-17 19:33] LABS: ALBUMIN 3.2 g/dL (3.4-5.0); ALK PHOS 81 U/L (46-116); ALT (SGPT) 52 U/L (16-63); ANION GAP 7 (6-14); AST (SGOT) 28 U/L (15-37); BLOOD UREA NITROGEN 12 mg/dL (8-26); BUN/CREATININE RATIO 10 (6-20); CALCIUM 8.8 mg/dL (8.5-10.1); CARBON DIOXIDE 30 mmol/L (21-32); CHLORIDE 103 mmol/L (98-107); CREATININE 1.2 mg/dL (0.7-1.3); GFR 62.9; GLUCOSE 185 mg/dL (70-99); POTASSIUM 3.9 mmol/L (3.5-5.1); SODIUM 140 mmol/L (136-145); TOTAL BILIRUBIN 0.2 mg/dL (0.2-1.0); TOTAL PROTEIN 6.3 g/dL (6.4-8.2)
[2020-09-17 19:34] LABS: VAL ACID 69 mcg/mL (50-100)
[2020-09-17] MEDS: DIVALPROEX ER 500 MG TAB.ER.24H PO SCH (20:13)
[2020-09-17] MEDS: ATORVASTATIN CALCIUM 20 MG TABLET PO SCH (20:14)
--- NOTE | 2020-09-17 21:50 | PDOC ---
Exam Note: Pasha Note: Please also refer to the separate dictated note~for this date of service dictated separately.~Patient seen individually. Discussed the patient with Nursing staff reviewed the chart.~Reviewed interim history and current functioning. Reviewed vital signs,~Labs/ Radiology~and current medications noted below. Continue current treatment with the changes noted in the dictated addendum note Assessment: Vital Signs/I&O: Vital Signs Date Time Temp Pulse Resp B/P (MAP) Pulse Ox O2 Delivery O2 Flow Rate FiO2 09/17/20 15:42 97.7 80 20 147/92 (110) 99 Room Air I & O 09/16/20 09/16/20 09/17/20 14:59 22:59 06:59 Intake Total 1050 ml 525 ml Balance 1050 ml 525 ml Labs: Laboratory Tests Test 09/17/20 07:29 09/17/20 11:53 09/17/20 16:30 09/17/20 19:09 Glucose (Fingerstick) 138 mg/dL (70-99) H 171 mg/dL (70-99) H 210 mg/dL (70-99) H White Blood Count 5.5 x10^3/uL (4.0-11.0) Red Blood Count 4.65 x10^6/uL (4.30-5.70) Hemoglobin 13.5 g/dL (13.0-17.5) Hematocrit 41.7 % (39.0-53.0) Mean Corpuscular Volume 90 fL (79-100) Mean Corpuscular Hemoglobin 29 pg (25-35) Mean Corpuscular Hemoglobin Concent 32 g/dL (31-37) Red Cell Distribution Width 13.7 % (11.5-14.5) Platelet Count 211 x10^3/uL (140-400) Neutrophils (%) (Auto) 63 % (31-73) Lymphocytes (%) (Auto) 26 % (24-48) Monocytes (%) (Auto) 9 % (0-9) Eosinophils (%) (Auto) 2 % (0-3) Basophils (%) (Auto) 0 % (0-3) Neutrophils # (Auto) 3.5 x10^3uL (1.8-7.7) Lymphocytes # (Auto) 1.5 x10^3/uL (1.0-4.8) Monocytes # (Auto) 0.5 x10^3/uL (0.0-1.1) Eosinophils # (Auto) 0.1 x10^3/uL (0.0-0.7) Basophils # (Auto) 0.0 x10^3/uL (0.0-0.2) Sodium Level 140 mmol/L (136-145) Potassium Level 3.9 mmol/L (3.5-5.1) Chloride Level 103 mmol/L (98-107) Carbon Dioxide Level 30 mmol/L (21-32) Anion Gap 7 (6-14) Blood Urea Nitrogen 12 mg/dL (8-26) Creatinine 1.2 mg/dL (0.7-1.3) Estimated GFR (Cockcroft-Gault) 62.9 BUN/Creatinine Ratio 10 (6-20) Glucose Level 185 mg/dL (70-99) H Calcium Level 8.8 mg/dL (8.5-10.1) Total Bilirubin 0.2 mg/dL (0.2-1.0) Aspartate Amino Transferase (AST) 28 U/L (15-37) Alanine Aminotransferase (ALT) 52 U/L (16-63) Alkaline Phosphatase 81 U/L (46-116) Total Protein 6.3 g/dL (6.4-8.2) L Albumin 3.2 g/dL (3.4-5.0) L Albumin/Globulin Ratio 1.0 (1.0-1.7) Valproic Acid Level 69 mcg/mL (50-100) Valproic Acid Last Dose Date 09/16/20 Valproic Acid Last Dose Time 2100 Current Medications: I have reviewed the current psychotropics carefully including drug interactions. Risk benefit ratio favors no change other than as noted in my dictated progress note. Diagnosis: Problems: (1) Bipolar affective disorder, mixed (2) Anxiety disorder, unspecified (3) Impulse control disorder, unspecified (4) Bipolar disorder, curr episode mixed, severe, with psychotic features SHARRI GARCIA MD Sep 17, 2020 21:50
--- NOTE | 2020-09-17 22:48 | PN ---
DATE: 09/12/2020 SUBJECTIVE: The patient denies any new medical or neurological complaints. He has not had any recurrent seizures since admission. He denies headaches, visual disturbances, nausea, vomiting, chest pain, shortness of breath or palpitations; however, he continued to have language dysfunction with expressive aphasia. OBJECTIVE: GENERAL: Well-developed, well-nourished male, not in acute distress. VITAL SIGNS: Blood pressure 144/79, respiratory rate 18, pulse is 87 and regular, temperature 97.7, oxygen saturation 98% on room air. HEENT: Normocephalic, atraumatic, otherwise unremarkable. NECK: Supple. Negative for carotid bruit, lymphadenopathy or thyromegaly. LUNGS: Clear to A and P. CARDIOVASCULAR: Regular rate and rhythm, normal S1, S2. There is no S3, S4 or murmur. ABDOMEN: Soft. Bowel sounds positive. EXTREMITIES: Negative for cyanosis, clubbing or edema. NEUROLOGICAL EXAM: Mental Status: The patient is alert and oriented to himself and the hospital; however, he continues to have expressive aphasia, but he is able to name some objects, but with some delay. The patient has language dysfunctions in terms of repetition, but he appears to have some comprehension, but associated with expressive aphasia. Judgment and memory and abstract thinking are fair. Cranial nerves are grossly intact. Motor examination: No focal muscle bulk was seen. The tone is normal. The strength is 5/5 throughout. Sensory examination revealed normal pinprick, light touch, vibratory and position senses. Deep tendon reflexes were symmetric and hypoactive with absent Achilles responses. Gait and coordination are normal. IMPRESSION: 1. History of seizure disorder, the last seizure was in 05/2020. The patient has been on Keppra 750 twice a day. 2. Multiple medical problems include hypertension, diabetes mellitus, hyperlipidemia, bipolar disorders, anxiety disorders and expressive aphasia due to previous stroke. RECOMMENDATIONS: 1. Due to current psychiatric care, started the patient on Depakote. Depakote will be increased gradually by Dr. Durand and wean off Keppra. 2. We will continue with current medical and psychiatric care. 3. Await for electroencephalogram. M Elio HO MD DR: ROSENDA/marco JOB#: [id number] / [id number]
--- NOTE | 2020-09-17 23:03 | PN ---
DATE: 09/14/2020 SUBJECTIVE: The patient was seen today in a followup visit. He denies any new medical complaints. He has not had any recurrent seizure; however, he continues to have expressive aphasia, which unchanged since admission. OBJECTIVE: GENERAL: Well-developed, well-nourished male, not in acute distress. VITAL SIGNS: Blood pressure 112/72, respiratory rate 18, pulse is 93 and regular, temperature 97.3, oxygen saturation 96% on room air. HEENT: Normocephalic, atraumatic, otherwise unremarkable. NECK: Supple. Negative for carotid bruit, lymphadenopathy or thyromegaly. LUNGS: Clear to A and P. CARDIOVASCULAR: Regular rhythm, normal S1, S2. There is no S3, S4 or murmur. ABDOMEN: Soft. Bowel sounds positive. EXTREMITIES: Negative for cyanosis, clubbing or edema. NEUROLOGICAL EXAM: Mental Status: The patient is alert to himself and time and alert to himself and place. The speech is delayed with expressive aphasia, difficulty to repeat at time, but his comprehension appears to be fine. He follows 1-step command. Further evaluation for memory, abstract thinking and judgment are fair; however, the patient denies hallucination or delusion. Cranial nerves are intact. No focal motor or sensory deficit. Deep tendon reflexes were symmetric and hypoactive with absent Achilles responses. Gait is normal. LABORATORY DATA: From 09/13/2020, Depakote level is 46. IMPRESSION: 1. History of stroke, probably about 2 years ago, probably hemorrhagic and required craniotomy. 2. Seizure disorder, stable since admission. The last seizure was in 05/2020. 3. Multiple medical problems include hypertension, diabetes mellitus, bipolar disorders, hyperlipidemia, anxiety disorders and expressive aphasia due to previous stroke. RECOMMENDATIONS: 1. Continue with current management along with medical and psychiatric care. 2. Continue with Depakote and increase it gradually until the patient gets therapeutic level. 3. Await electroencephalogram. M Elio HO MD DR: ROSENDA/marco JOB#: [id number] / [id number]
--- NOTE | 2020-09-17 23:35 | PN ---
DATE: SUBJECTIVE: The patient denies any new medical or neurological complaints; however, he continues to have expressive aphasia due to previous stroke. OBJECTIVE: GENERAL: Well-developed, well-nourished male, not in acute distress. VITAL SIGNS: Blood pressure 130/79, respiratory rate 18, pulse is 86, temperature 97.8, oxygen saturation 98% on room air. HEENT: Normocephalic, atraumatic, otherwise unremarkable. NECK: Supple. Negative for carotid bruit, lymphadenopathy or thyromegaly. LUNGS: Clear to A and P. CARDIOVASCULAR: Regular rate and rhythm, normal S1, S2. There is no S3, S4 or murmur. ABDOMEN: Soft. Bowel sounds positive. EXTREMITIES: Negative for cyanosis, clubbing or pitting edema. NEUROLOGICAL EXAM: Mental Status: The patient is alert and oriented to himself and situation. The speech is consistent with expressive aphasia, difficulty repetition, but his comprehension appeared to be fine. Judgment and abstract thinking are fair. The patient denies hallucination or delusion. Cranial nerves are intact. Motor examination: No focal muscle bulk was seen. The tone is normal. The strength is 5/5 throughout. Sensory examination revealed normal pinprick and light touch senses throughout. Deep tendon reflexes are symmetric and hypoactive with absent Achilles responses. Gait and coordination are normal. ELECTROENCEPHALOGRAM: EEG was performed using the standard international 10-20 electrode placement system. Photic stimulation and hyperventilation was not performed. The patient was not sleep deprived. The patient was not sedated. EEG obtained with the patient in the awake state characterized by posterior dominant rhythm of 8-9 cycles per second with an amplitude of 25-35 microvolts. It was bilaterally symmetric without attenuation with eye opening. As the EEG goes on, the background shows burst of high voltage sharp waves and spike confined to the left anterior and middle temporal regions. Phase reversal phenomena was also seen at C3 and P3 electrodes along with focal slowing of the background activities. The patient achieved stage 1 and early stage 2 sleep characterized by slowing of the posterior dominant rhythm and attenuation of the amplitudes. Photic stimulation and hyperventilation were not performed. IMPRESSION: 1. This is an abnormal EEG because of the appearance of the burst of spike and slow wave complexes confined to the left anterior and mid temporal regions associated with phase reversal phenomena suggestive of left focal epileptic focus and potential for left seizure disorder, likely due to previous stroke and postoperative changes. 2. Seizure disorder, no recurrence. 3. Multiple medical problems include hypertension, hyperlipidemia, diabetes mellitus, bipolar disorders and anxiety disorders. 4. History of stroke resulted in expressive aphasia and required a craniotomy. RECOMMENDATION: 1. Continue with Depakote and increase the dose gradually until the patient has therapeutic level. 2. Continue with current medical and psychiatric care. M Elio HO MD DR: ROSENDA/marco JOB#: [id number] / [id number]
--- NOTE | 2020-09-17 23:59 | NUR ---
Patient is walking laps around the unit on assumption of care. He is in pleasant spirits. He stayed up for a while, retiring to his room at approximately 2100. He is polite, interactive and appropriate. Compliant with assessments and medications taken whole. No agitation. Denies any pain or discomfort. Patient appears to be sleeping comfortably at present time. Will continue to monitor.
[2020-09-18 05:53] VITALS: BP 111/71
--- NOTE | 2020-09-18 07:12 | PDOC ---
Exam Note: Pasha Note: This note is a late entry for 09/15/2020 covers elements not covered in my initial note. Subjective: The patient was seen face to face in the morning of 09/15/2020 for treatment team meeting with Milli Carpenter and Connie (social worker school), Sandi, activity therapy, Jere OCONNOR. The patients mother Radha attended the treatment team meeting as well. The patient was also seen face to face in the evening of 09/15. Discussed with nursing staff, reviewed the chart. The patient slept 7 hours previous night. Appetite is 100%. He has been helpful, attended groups. He went to bed early previous night, was up at 3 a.m. glaze wiper he was talking to himself, somewhat depressed but by the evening he stated his mood was better. He has been helpful around the unit. Review of Systems: No CV, , pulmonary, eye, ENT system symptoms on review. Mental Status Exam: Oriented to himself and situation. Speech is otherwise coherent. Abstraction is fair. Computation impaired. Language function is intact. Attention span is short. Mood and affect somewhat better. I talked to the patient at great length. He gets frustrated if he feels he could be helpful for another patient by the nursing staff. Encourage him not to get involved with other patients and he was expressing this quite profusely with me in the evening. I processed this with him. Laboratory Data: Reviewed. Impression: Bipolar disorder mixed with psychotic features. Impulse control disorder. Anxiety disorder unspecified. Status post CVA. Expressive aphasia. Mild cognitive impairment. Assessment: Vital Signs/I&O: Vital Signs Date Time Temp Pulse Resp B/P (MAP) Pulse Ox O2 Delivery O2 Flow Rate FiO2 09/18/20 05:53 98.0 81 18 111/71 (84) 96 09/17/20 15:42 Room Air I & O 09/17/20 09/17/20 09/18/20 15:00 23:00 07:00 Intake Total 1080 ml 600 ml Balance 1080 ml 600 ml Labs: Laboratory Tests Test 09/17/20 07:29 09/17/20 11:53 09/17/20 16:30 09/17/20 19:09 Glucose (Fingerstick) 138 mg/dL (70-99) H 171 mg/dL (70-99) H 210 mg/dL (70-99) H White Blood Count 5.5 x10^3/uL (4.0-11.0) Red Blood Count 4.65 x10^6/uL (4.30-5.70) Hemoglobin 13.5 g/dL (13.0-17.5) Hematocrit 41.7 % (39.0-53.0) Mean Corpuscular Volume 90 fL (79-100) Mean Corpuscular Hemoglobin 29 pg (25-35) Mean Corpuscular Hemoglobin Concent 32 g/dL (31-37) Red Cell Distribution Width 13.7 % (11.5-14.5) Platelet Count 211 x10^3/uL (140-400) Neutrophils (%) (Auto) 63 % (31-73) Lymphocytes (%) (Auto) 26 % (24-48) Monocytes (%) (Auto) 9 % (0-9) Eosinophils (%) (Auto) 2 % (0-3) Basophils (%) (Auto) 0 % (0-3) Neutrophils # (Auto) 3.5 x10^3uL (1.8-7.7) Lymphocytes # (Auto) 1.5 x10^3/uL (1.0-4.8) Monocytes # (Auto) 0.5 x10^3/uL (0.0-1.1) Eosinophils # (Auto) 0.1 x10^3/uL (0.0-0.7) Basophils # (Auto) 0.0 x10^3/uL (0.0-0.2) Sodium Level 140 mmol/L (136-145) Potassium Level 3.9 mmol/L (3.5-5.1) Chloride Level 103 mmol/L (98-107) Carbon Dioxide Level 30 mmol/L (21-32) Anion Gap 7 (6-14) Blood Urea Nitrogen 12 mg/dL (8-26) Creatinine 1.2 mg/dL (0.7-1.3) Estimated GFR (Cockcroft-Gault) 62.9 BUN/Creatinine Ratio 10 (6-20) Glucose Level 185 mg/dL (70-99) H Calcium Level 8.8 mg/dL (8.5-10.1) Total Bilirubin 0.2 mg/dL (0.2-1.0) Aspartate Amino Transferase (AST) 28 U/L (15-37) Alanine Aminotransferase (ALT) 52 U/L (16-63) Alkaline Phosphatase 81 U/L (46-116) Total Protein 6.3 g/dL (6.4-8.2) L Albumin 3.2 g/dL (3.4-5.0) L Albumin/Globulin Ratio 1.0 (1.0-1.7) Valproic Acid Level 69 mcg/mL (50-100) Valproic Acid Last Dose Date 09/16/20 Valproic Acid Last Dose Time 2100 Current Medications: I have reviewed the current psychotropics carefully including drug interactions. Risk benefit ratio favors no change other than as noted in my dictated progress note. Diagnosis: Problems: (1) Bipolar affective disorder, mixed (2) Anxiety disorder, unspecified (3) Impulse control disorder, unspecified (4) Bipolar disorder, curr episode mixed, severe, with psychotic features SHARRI GARCIA MD Sep 18, 2020 07:12
--- NOTE | 2020-09-18 07:35 | PDOC ---
Exam Note: Pasha Note: This note is a late entry for 09/16/2020 covers elements not covered in my initial note. Subjective: The patient was seen face to face in the evening of 09/16/2020 with Jere OCONNOR. Discussed with nursing staff, reviewed the chart. The patient slept 6 hours previous night. He had a good day. Previous night he was somewhat intrusive, wanting to be helpful to others but becomes quite depressed if nursing staff do not permit him to do so. Review of Systems: No CV, , pulmonary, eye, ENT system symptoms on review. Mental Status Exam: Oriented to himself and situation. Speech is otherwise coherent. Abstraction is fair. Computation impaired. Language function is intact. Attention span is short. Mood and affect somewhat better. Laboratory Data: Reviewed. Impression: Bipolar disorder mixed with psychotic features. Impulse control disorder. Anxiety disorder unspecified. Status post CVA. Expressive aphasia. Mild cognitive impairment. Plan: Continue psychotropics from initial note. Assessment: Vital Signs/I&O: Vital Signs Date Time Temp Pulse Resp B/P (MAP) Pulse Ox O2 Delivery O2 Flow Rate FiO2 09/18/20 05:53 98.0 81 18 111/71 (84) 96 09/17/20 15:42 Room Air I & O 09/17/20 09/17/20 09/18/20 15:00 23:00 07:00 Intake Total 1080 ml 600 ml Balance 1080 ml 600 ml Labs: Laboratory Tests Test 09/17/20 11:53 09/17/20 16:30 09/17/20 19:09 Glucose (Fingerstick) 171 mg/dL (70-99) H 210 mg/dL (70-99) H White Blood Count 5.5 x10^3/uL (4.0-11.0) Red Blood Count 4.65 x10^6/uL (4.30-5.70) Hemoglobin 13.5 g/dL (13.0-17.5) Hematocrit 41.7 % (39.0-53.0) Mean Corpuscular Volume 90 fL (79-100) Mean Corpuscular Hemoglobin 29 pg (25-35) Mean Corpuscular Hemoglobin Concent 32 g/dL (31-37) Red Cell Distribution Width 13.7 % (11.5-14.5) Platelet Count 211 x10^3/uL (140-400) Neutrophils (%) (Auto) 63 % (31-73) Lymphocytes (%) (Auto) 26 % (24-48) Monocytes (%) (Auto) 9 % (0-9) Eosinophils (%) (Auto) 2 % (0-3) Basophils (%) (Auto) 0 % (0-3) Neutrophils # (Auto) 3.5 x10^3uL (1.8-7.7) Lymphocytes # (Auto) 1.5 x10^3/uL (1.0-4.8) Monocytes # (Auto) 0.5 x10^3/uL (0.0-1.1) Eosinophils # (Auto) 0.1 x10^3/uL (0.0-0.7) Basophils # (Auto) 0.0 x10^3/uL (0.0-0.2) Sodium Level 140 mmol/L (136-145) Potassium Level 3.9 mmol/L (3.5-5.1) Chloride Level 103 mmol/L (98-107) Carbon Dioxide Level 30 mmol/L (21-32) Anion Gap 7 (6-14) Blood Urea Nitrogen 12 mg/dL (8-26) Creatinine 1.2 mg/dL (0.7-1.3) Estimated GFR (Cockcroft-Gault) 62.9 BUN/Creatinine Ratio 10 (6-20) Glucose Level 185 mg/dL (70-99) H Calcium Level 8.8 mg/dL (8.5-10.1) Total Bilirubin 0.2 mg/dL (0.2-1.0) Aspartate Amino Transferase (AST) 28 U/L (15-37) Alanine Aminotransferase (ALT) 52 U/L (16-63) Alkaline Phosphatase 81 U/L (46-116) Total Protein 6.3 g/dL (6.4-8.2) L Albumin 3.2 g/dL (3.4-5.0) L Albumin/Globulin Ratio 1.0 (1.0-1.7) Valproic Acid Level 69 mcg/mL (50-100) Valproic Acid Last Dose Date 09/16/20 Valproic Acid Last Dose Time 2100 Current Medications: I have reviewed the current psychotropics carefully including drug interactions. Risk benefit ratio favors no change other than as noted in my dictated progress note. Diagnosis: Problems: (1) Bipolar affective disorder, mixed (2) Anxiety disorder, unspecified (3) Impulse control disorder, unspecified (4) Bipolar disorder, curr episode mixed, severe, with psychotic features SHARRI GARCIA MD Sep 18, 2020 07:35
--- NOTE | 2020-09-18 07:54 | PDOC ---
Exam Note: Pasha Note: This note is a late entry for 09/17/2020 covers elements not covered in my initial note. Subjective: The patient was seen face to face in the evening of 09/17/2020 with Patrice OCONNOR. Discussed with nursing staff, reviewed the chart. The patient slept 7-3/4 hours previous night. He is still somewhat obsessive, anxious and I processed this with him. He complains of being sent to bed too early. Valproic acid level has been drawn and result is awaited. Review of Systems: No CV, , pulmonary, eye, ENT system symptoms on review. Mental Status Exam: Oriented to himself and situation. Speech is otherwise coherent. Abstraction is fair. Computation impaired. Language function is intact. Attention span is short. Mood and affect somewhat obsessive, anxious. Laboratory Data: Reviewed. Impression: Bipolar disorder mixed with psychotic features. Impulse control disorder. Anxiety disorder unspecified. Status post CVA. Expressive aphasia. Mild cognitive impairment. Plan: Continue psychotropics from initial note. Assessment: Vital Signs/I&O: Vital Signs Date Time Temp Pulse Resp B/P (MAP) Pulse Ox O2 Delivery O2 Flow Rate FiO2 09/18/20 05:53 98.0 81 18 111/71 (84) 96 09/17/20 15:42 Room Air I & O 09/17/20 09/17/20 09/18/20 15:00 23:00 07:00 Intake Total 1080 ml 600 ml Balance 1080 ml 600 ml Labs: Laboratory Tests Test 09/17/20 11:53 09/17/20 16:30 09/17/20 19:09 Glucose (Fingerstick) 171 mg/dL (70-99) H 210 mg/dL (70-99) H White Blood Count 5.5 x10^3/uL (4.0-11.0) Red Blood Count 4.65 x10^6/uL (4.30-5.70) Hemoglobin 13.5 g/dL (13.0-17.5) Hematocrit 41.7 % (39.0-53.0) Mean Corpuscular Volume 90 fL (79-100) Mean Corpuscular Hemoglobin 29 pg (25-35) Mean Corpuscular Hemoglobin Concent 32 g/dL (31-37) Red Cell Distribution Width 13.7 % (11.5-14.5) Platelet Count 211 x10^3/uL (140-400) Neutrophils (%) (Auto) 63 % (31-73) Lymphocytes (%) (Auto) 26 % (24-48) Monocytes (%) (Auto) 9 % (0-9) Eosinophils (%) (Auto) 2 % (0-3) Basophils (%) (Auto) 0 % (0-3) Neutrophils # (Auto) 3.5 x10^3uL (1.8-7.7) Lymphocytes # (Auto) 1.5 x10^3/uL (1.0-4.8) Monocytes # (Auto) 0.5 x10^3/uL (0.0-1.1) Eosinophils # (Auto) 0.1 x10^3/uL (0.0-0.7) Basophils # (Auto) 0.0 x10^3/uL (0.0-0.2) Sodium Level 140 mmol/L (136-145) Potassium Level 3.9 mmol/L (3.5-5.1) Chloride Level 103 mmol/L (98-107) Carbon Dioxide Level 30 mmol/L (21-32) Anion Gap 7 (6-14) Blood Urea Nitrogen 12 mg/dL (8-26) Creatinine 1.2 mg/dL (0.7-1.3) Estimated GFR (Cockcroft-Gault) 62.9 BUN/Creatinine Ratio 10 (6-20) Glucose Level 185 mg/dL (70-99) H Calcium Level 8.8 mg/dL (8.5-10.1) Total Bilirubin 0.2 mg/dL (0.2-1.0) Aspartate Amino Transferase (AST) 28 U/L (15-37) Alanine Aminotransferase (ALT) 52 U/L (16-63) Alkaline Phosphatase 81 U/L (46-116) Total Protein 6.3 g/dL (6.4-8.2) L Albumin 3.2 g/dL (3.4-5.0) L Albumin/Globulin Ratio 1.0 (1.0-1.7) Valproic Acid Level 69 mcg/mL (50-100) Valproic Acid Last Dose Date 09/16/20 Valproic Acid Last Dose Time 2100 Current Medications: I have reviewed the current psychotropics carefully including drug interactions. Risk benefit ratio favors no change other than as noted in my dictated progress note. Diagnosis: Problems: (1) Bipolar affective disorder, mixed (2) Anxiety disorder, unspecified (3) Impulse control disorder, unspecified (4) Bipolar disorder, curr episode mixed, severe, with psychotic features SHARRI GARCIA MD Sep 18, 2020 07:54
[2020-09-18] MEDS: EMPAGLIFLOZIN 12.5 MG PO SCH (08:24)
[2020-09-18] MEDS: TAMSULOSIN 0.4 MG CAP.ER.24H. PO SCH (08:26)
[2020-09-18] MEDS: glipiZIDE 5 MG TABLET PO SCH ×2 (08:26→16:56)
[2020-09-18] MEDS: PYRIDOXINE 50 MG TABLET. PO SCH (08:26)
[2020-09-18] MEDS: FLUoxetine HCL 10 MG CAPSULE PO SCH (08:26)
[2020-09-18] MEDS: ARIPiprazole 5 MG TABLET PO SCH (08:26)
[2020-09-18] MEDS: ASPIRIN CHEWABLE 81 MG TABLET. PO SCH (08:26)
[2020-09-18] MEDS: metFORMIN 500 MG TABLET PO SCH ×2 (08:26→16:56)
[2020-09-18] MEDS: levETIRAcetam 500 MG TABLET PO SCH (08:26)
[2020-09-18] MEDS: MUPIROCIN 2% TOPICAL OINTMENT 22GM TUBE. TP SCH ×2 (08:27→20:23)
[2020-09-18] MEDS: LACTOBACILLUS RHAMNOSUS GG 1 CAPSULE. PO SCH ×2 (08:27→20:22)
--- NOTE | 2020-09-18 11:32 | NUR ---
Nursing note: Pt in his room eating breakfast at morning med pass and assessment. He was pleasant, med compliant, and cooperative. He denied having pain or discomfort. Pt has been helpful this AM in walking the breakfast cart down the hallway and picking up trash. He has been walking around the unit and socializing with other patients this morning. Will continue to monitor.
[2020-09-18 15:58] VITALS: BP 129/73
[2020-09-18] MEDS: levETIRAcetam 250 MG TABLET PO SCH (20:21)
[2020-09-18] MEDS: DIVALPROEX ER 500 MG TAB.ER.24H PO SCH (20:22)
[2020-09-18] MEDS: ATORVASTATIN CALCIUM 20 MG TABLET PO SCH (20:23)
--- NOTE | 2020-09-18 20:51 | PDOC ---
Exam Note: Pasha Note: Please also refer to the separate dictated note~for this date of service dictated separately.~Patient seen individually. Discussed the patient with Nursing staff reviewed the chart.~Reviewed interim history and current functioning. Reviewed vital signs,~Labs/ Radiology~and current medications noted below. Continue current treatment with the changes noted in the dictated addendum note Assessment: Vital Signs/I&O: Vital Signs Date Time Temp Pulse Resp B/P (MAP) Pulse Ox O2 Delivery O2 Flow Rate FiO2 09/18/20 15:58 98.1 82 20 129/73 (91) 97 Room Air I & O 09/17/20 09/17/20 09/18/20 15:00 23:00 07:00 Intake Total 1080 ml 600 ml Balance 1080 ml 600 ml Labs: Laboratory Tests Test 09/18/20 07:53 09/18/20 12:05 09/18/20 16:36 Glucose (Fingerstick) 145 mg/dL (70-99) H 189 mg/dL (70-99) H 125 mg/dL (70-99) H Current Medications: Meds: Current Medications Medications (Trade) Dose Ordered Sig/Joseph Route PRN Reason Start Time Stop Time Status Last Admin Dose Admin Levetiracetam (Keppra) 250 mg BID PO 09/18/20 21:00 09/18/20 20:21 I have reviewed the current psychotropics carefully including drug interactions. Risk benefit ratio favors no change other than as noted in my dictated progress note. Diagnosis: Problems: (1) Bipolar affective disorder, mixed (2) Anxiety disorder, unspecified (3) Impulse control disorder, unspecified (4) Bipolar disorder, curr episode mixed, severe, with psychotic features SHARRI GARCIA MD Sep 18, 2020 20:51
--- NOTE | 2020-09-18 23:59 | NUR ---
Patient is walking laps around the unit on assumption of care. He is in pleasant spirits. Compliant with assessments and medications taken whole. No agitation. Denies any pain or discomfort. Patient appears to be sleeping comfortably at present time. Will continue to monitor.
[2020-09-19 06:04] VITALS: BP 149/84
[2020-09-19] MEDS: levETIRAcetam 250 MG TABLET PO SCH ×2 (07:37→20:20)
[2020-09-19] MEDS: TAMSULOSIN 0.4 MG CAP.ER.24H. PO SCH (07:37)
[2020-09-19] MEDS: glipiZIDE 5 MG TABLET PO SCH ×2 (07:37→16:41)
[2020-09-19] MEDS: LACTOBACILLUS RHAMNOSUS GG 1 CAPSULE. PO SCH ×2 (07:37→20:20)
[2020-09-19] MEDS: ASPIRIN CHEWABLE 81 MG TABLET. PO SCH (07:37)
[2020-09-19] MEDS: metFORMIN 500 MG TABLET PO SCH ×2 (07:37→16:41)
[2020-09-19] MEDS: MUPIROCIN 2% TOPICAL OINTMENT 22GM TUBE. TP SCH ×2 (07:37→21:00)
[2020-09-19] MEDS: PYRIDOXINE 50 MG TABLET. PO SCH (07:37)
[2020-09-19] MEDS: ARIPiprazole 5 MG TABLET PO SCH (07:37)
[2020-09-19] MEDS: FLUoxetine HCL 10 MG CAPSULE PO SCH (07:37)
[2020-09-19] MEDS: EMPAGLIFLOZIN 12.5 MG PO SCH (07:45)
--- NOTE | 2020-09-19 10:53 | NUR ---
Nursing note: Pt in his room for morning meds and assessment. He was med compliant, calm and cooperative. Pt has more of a depressed affect this morning d/t having his stock of snacks and gatorade put away in his closet. He denies pain or discomfort. He is currently in the day room participating in group. Will continue to monitor.
--- NOTE | 2020-09-19 14:21 | PN ---
DATE: SUBJECTIVE: The patient denies any new medical or neurological complaints. He has not had any recurrent seizures. However, the patient continues to have intermittent behavior disturbances. He becomes somewhat agitated. OBJECTIVE: GENERAL: Well-developed, well-nourished male, not in acute distress. VITAL SIGNS: Blood pressure 149/84, respiratory rate 20, pulse is 86 and regular, temperature 98, oxygen saturation 97% on room air. HEENT: Normocephalic, atraumatic, otherwise unremarkable. NECK: Supple. Negative for carotid bruit, lymphadenopathy or thyromegaly. LUNGS: Clear to A and P. CARDIOVASCULAR: Regular rate and rhythm, normal S1, S2. ABDOMEN: Soft. Bowel sounds positive. EXTREMITIES: Negative for cyanosis, clubbing or edema. NEUROLOGIC: Mental Status: The patient is alert and oriented to himself and situation. Speech is with expressive aphasia. Comprehension appeared to be somewhat intact. Repetition is delayed. Memory, judgment and abstracting thinking are fair. The patient denies hallucination or delusion. Cranial nerves are intact. No focal motor or sensory deficits. Deep tendon reflexes were symmetric and hypoactive with absent Achilles responses. Gait and coordination are normal. IMPRESSION: 1. History of stroke, status post left craniotomy with abnormal EEG consistent with left temporal epileptic focus. 2. Multiple medical problems include hypertension, diabetes mellitus, hyperlipidemia, anxiety. 3. Multiple psychiatric problems include anxiety disorder, bipolar disorder with intermittent psychotic features. RECOMMENDATIONS: 1. Continue with current medical and psychiatric care. 2. We will taper Keppra from 500 twice a day to 250 twice a day and watch for any potential for recurrent seizure. 3. Continue with Depakote. M Elio HO MD DR: ROSENDA/marco JOB#: [id number] / [id number]
[2020-09-19 15:58] VITALS: BP 133/80
[2020-09-19] MEDS: ATORVASTATIN CALCIUM 20 MG TABLET PO SCH (20:20)
[2020-09-19] MEDS: DIVALPROEX ER 500 MG TAB.ER.24H PO SCH (20:21)
--- NOTE | 2020-09-19 21:12 | PDOC ---
Exam Note: Pasha Note: Please also refer to the separate dictated note~for this date of service dictated separately.~Patient seen individually. Discussed the patient with Nursing staff reviewed the chart.~Reviewed interim history and current functioning. Reviewed vital signs,~Labs/ Radiology~and current medications noted below. Continue current treatment with the changes noted in the dictated addendum note Assessment: Vital Signs/I&O: Vital Signs Date Time Temp Pulse Resp B/P (MAP) Pulse Ox O2 Delivery O2 Flow Rate FiO2 09/19/20 15:58 97.2 75 19 133/80 (97) 99 09/18/20 15:58 Room Air I & O 09/18/20 09/18/20 09/19/20 15:00 23:00 07:00 Intake Total 600 ml 480 ml Balance 600 ml 480 ml Labs: Laboratory Tests Test 09/19/20 07:35 09/19/20 12:06 Glucose (Fingerstick) 156 mg/dL (70-99) H 135 mg/dL (70-99) H Current Medications: I have reviewed the current psychotropics carefully including drug interactions. Risk benefit ratio favors no change other than as noted in my dictated progress note. Diagnosis: Problems: (1) Bipolar affective disorder, mixed (2) Anxiety disorder, unspecified (3) Impulse control disorder, unspecified (4) Bipolar disorder, curr episode mixed, severe, with psychotic features SHARRI GARCIA MD Sep 19, 2020 21:12
--- NOTE | 2020-09-20 04:44 | NUR ---
Last evening pt took his meds whole without difficulty. He has been pleasant and cooperative and has had no behaviors tonight.
[2020-09-20 05:54] VITALS: BP 114/74
--- NOTE | 2020-09-20 07:56 | PDOC ---
Exam Note: Pasha Note: This note is a late entry for 09/18/2020 covers elements not covered in my initial note. Subjective: The patient was reviewed on telehealth rounds in the evening of 09/18/2020 with Gavi OCONNOR. Discussed with nursing staff, reviewed the chart. The patient slept 7 hours previous night. He had a good day. Valproic acid level is 69 therapeutic on 09/17. I will defer to Dr. Flores whether Keppra could be reduced and since the mother is convinced, his agitation increased after he was started on Keppra, otherwise, on the unit he has been fairly cooperative, and gets little frustrated. Review of Systems: No CV, , pulmonary, eye, ENT system symptoms on review. Mental Status Exam: Oriented to himself and situation. I met with him in his room. He is verbal, interactive. He has difficulty with expressive aphasia. Speech is otherwise coherent. Abstraction is fair. Computation impaired. Language function is intact. Attention span is short. Mood and affect somewhat anxious. Laboratory Data: Reviewed. Impression: Bipolar disorder mixed with psychotic features. Impulse control disorder. Anxiety disorder unspecified. Expressive aphasia. Mild cognitive impairment. Plan: Continue psychotropics from initial note. Assessment: Vital Signs/I&O: Vital Signs Date Time Temp Pulse Resp B/P (MAP) Pulse Ox O2 Delivery O2 Flow Rate FiO2 09/20/20 05:54 97.5 70 20 114/74 (87) 94 09/18/20 15:58 Room Air I & O 09/19/20 09/19/20 09/20/20 14:59 22:59 06:59 Intake Total 720 ml 360 ml Balance 720 ml 360 ml Labs: Laboratory Tests Test 09/19/20 12:06 09/20/20 07:40 Glucose (Fingerstick) 135 mg/dL (70-99) H 157 mg/dL (70-99) H Current Medications: I have reviewed the current psychotropics carefully including drug interactions. Risk benefit ratio favors no change other than as noted in my dictated progress note. Diagnosis: Problems: (1) Bipolar affective disorder, mixed (2) Anxiety disorder, unspecified (3) Impulse control disorder, unspecified (4) Bipolar disorder, curr episode mixed, severe, with psychotic features SHARRI GARCIA MD Sep 20, 2020 07:56
[2020-09-20] MEDS: LACTOBACILLUS RHAMNOSUS GG 1 CAPSULE. PO SCH ×2 (08:10→20:37)
[2020-09-20] MEDS: MUPIROCIN 2% TOPICAL OINTMENT 22GM TUBE. TP SCH ×2 (08:10→20:37)
[2020-09-20] MEDS: metFORMIN 500 MG TABLET PO SCH ×2 (08:10→16:59)
[2020-09-20] MEDS: glipiZIDE 5 MG TABLET PO SCH ×2 (08:11→16:59)
[2020-09-20] MEDS: levETIRAcetam 250 MG TABLET PO SCH ×2 (08:11→20:37)
[2020-09-20] MEDS: PYRIDOXINE 50 MG TABLET. PO SCH (08:11)
[2020-09-20] MEDS: EMPAGLIFLOZIN 12.5 MG PO SCH (08:11)
[2020-09-20] MEDS: TAMSULOSIN 0.4 MG CAP.ER.24H. PO SCH (08:11)
[2020-09-20] MEDS: ASPIRIN CHEWABLE 81 MG TABLET. PO SCH (08:11)
[2020-09-20] MEDS: ARIPiprazole 5 MG TABLET PO SCH (08:11)
--- NOTE | 2020-09-20 08:11 | PDOC ---
Exam Note: Pasha Note: This note is a late entry for 09/19/2020 covers elements not covered in my initial note. Subjective: The patient was seen face to face in the evening of 09/19/2020 with Cee OCONNOR. Discussed with nursing staff, reviewed the chart. The patient slept 6-3/4 hours previous night. He has been hoarding things, somewhat obsessive, angry at times. Reportedly he was using the [employer] system to take pictures. Staff had redirected him against doing this but they found some more, later in the day. He was also hoarding 6 to 8 bottle of Gatorade and I processed this with him. Review of Systems: No CV, , pulmonary, eye, ENT system symptoms on review. Mental Status Exam: Oriented to himself. Speech is otherwise coherent. Abstraction is fair. Computation impaired. Language function is intact. Attention span is short. Mood and affect somewhat obsessive. Laboratory Data: Reviewed. Impression: Bipolar disorder mixed with psychotic features. Impulse control disorder. Anxiety disorder unspecified. Expressive aphasia. Mild cognitive impairment. Plan: Continue psychotropics from initial note. The patient remains quite obsessive along with manifesting significant hoarding into varying with his functioning. We will change the Prozac to Luvox 25 mg a day for 3 days and then 50 mg a day thereafter. Rest unchanged for now. Assessment: Vital Signs/I&O: Vital Signs Date Time Temp Pulse Resp B/P (MAP) Pulse Ox O2 Delivery O2 Flow Rate FiO2 09/20/20 05:54 97.5 70 20 114/74 (87) 94 09/18/20 15:58 Room Air I & O 09/19/20 09/19/20 09/20/20 15:00 23:00 07:00 Intake Total 720 ml 360 ml Balance 720 ml 360 ml Labs: Laboratory Tests Test 09/19/20 12:06 09/20/20 07:40 Glucose (Fingerstick) 135 mg/dL (70-99) H 157 mg/dL (70-99) H Current Medications: I have reviewed the current psychotropics carefully including drug interactions. Risk benefit ratio favors no change other than as noted in my dictated progress note. Diagnosis: Problems: (1) Bipolar affective disorder, mixed (2) Anxiety disorder, unspecified (3) Impulse control disorder, unspecified (4) Bipolar disorder, curr episode mixed, severe, with psychotic features RADHA,MAN M MD Sep 20, 2020 08:11
--- NOTE | 2020-09-20 10:30 | NUR ---
Nursing note: Pt in his room for morning meds and assessment. He was calm, med compliant, and cooperative. Pt denies any pain or discomfort. He has been helpful this morning with cleaning. He is currently in the day room participating in group. Will continue to monitor.
[2020-09-20 16:01] VITALS: BP 125/74
--- NOTE | 2020-09-20 16:27 | NUR ---
JOHN spoke with parent/DPOA/Nury (P) [phone] to provide update and remind of tx team on . DPOA willing to participate. JOHN provided DPOA with blood sugar readings as requested. JOHN asked DPOA if pt could call home for a visit and DPOA requested pt call Saturday afternoon d/t family and work scheduling. 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 DPOA accepted conversation and agreed that something like that would be good for him. JOHN offered a couple of other suggestions to DPOA to minimize conflict within the home. JOHN expressed that pt appears to be benefiting from the program and giving him things to do seems to give him an internal feel/good purpose. JOHN will pass along the okay to [facility] staff for pt to call home on Saturday.
[2020-09-20] MEDS: ATORVASTATIN CALCIUM 20 MG TABLET PO SCH (20:37)
[2020-09-20] MEDS: DIVALPROEX ER 500 MG TAB.ER.24H PO SCH (20:38)
--- NOTE | 2020-09-20 20:40 | PDOC ---
Exam Note: Pasha Note: Please also refer to the separate dictated note~for this date of service dictated separately.~Patient seen individually. Discussed the patient with Nursing staff reviewed the chart.~Reviewed interim history and current functioning. Reviewed vital signs,~Labs/ Radiology~and current medications noted below. Continue current treatment with the changes noted in the dictated addendum note Assessment: Vital Signs/I&O: Vital Signs Date Time Temp Pulse Resp B/P (MAP) Pulse Ox O2 Delivery O2 Flow Rate FiO2 09/20/20 16:01 97.6 77 19 125/74 (91) 98 09/18/20 15:58 Room Air I & O 09/19/20 09/19/20 09/20/20 15:00 23:00 07:00 Intake Total 720 ml 360 ml Balance 720 ml 360 ml Labs: Laboratory Tests Test 09/20/20 07:40 09/20/20 11:54 09/20/20 16:49 Glucose (Fingerstick) 157 mg/dL (70-99) H 143 mg/dL (70-99) H 113 mg/dL (70-99) H Current Medications: Meds: Current Medications Medications (Trade) Dose Ordered Sig/Joseph Route PRN Reason Start Time Stop Time Status Last Admin Dose Admin Fluvoxamine Maleate (Luvox) 25 mg DAILY PO 09/20/20 09:00 09/22/20 21:00 09/20/20 08:10 I have reviewed the current psychotropics carefully including drug interactions. Risk benefit ratio favors no change other than as noted in my dictated progress note. Diagnosis: Problems: (1) Bipolar affective disorder, mixed (2) Anxiety disorder, unspecified (3) Impulse control disorder, unspecified (4) Bipolar disorder, curr episode mixed, severe, with psychotic features SHARRI GARCIA MD Sep 20, 2020 20:40
--- NOTE | 2020-09-21 03:47 | NUR ---
Last evening pt was mainly in his room listening to music and doing crafts. He has been pleasant and cooperative and seems at ease. Meds were take whole and he has had no behaviors tonight.
[2020-09-21 05:36] VITALS: BP 114/75
[2020-09-21] MEDS: PYRIDOXINE 50 MG TABLET. PO SCH (07:53)
[2020-09-21] MEDS: metFORMIN 500 MG TABLET PO SCH ×2 (07:53→17:16)
[2020-09-21] MEDS: ARIPiprazole 5 MG TABLET PO SCH (07:53)
[2020-09-21] MEDS: levETIRAcetam 250 MG TABLET PO SCH ×2 (07:54→20:24)
[2020-09-21] MEDS: glipiZIDE 5 MG TABLET PO SCH ×2 (07:54→17:16)
[2020-09-21] MEDS: LACTOBACILLUS RHAMNOSUS GG 1 CAPSULE. PO SCH ×2 (07:54→20:24)
[2020-09-21] MEDS: MUPIROCIN 2% TOPICAL OINTMENT 22GM TUBE. TP SCH ×2 (07:54→20:24)
[2020-09-21] MEDS: EMPAGLIFLOZIN 12.5 MG PO SCH (07:54)
[2020-09-21] MEDS: ASPIRIN CHEWABLE 81 MG TABLET. PO SCH (07:54)
[2020-09-21] MEDS: TAMSULOSIN 0.4 MG CAP.ER.24H. PO SCH (07:54)
--- NOTE | 2020-09-21 10:17 | NUR ---
Nursing note: Pt in his room at time of AM med pass and assessment. He was pleasant, med compliant, and cooperative. Pt denied having any pain. He was eager to get started with helping out with passing out breakfast trays. He then helped with picking up the meal trays and throwing them away. Pt is currently in the day room to get ready for group. Will continue to monitor.
--- NOTE | 2020-09-21 15:27 | NUR ---
SW spoke with pt today to explain that he could call home Master afternoon per his mother's request. SW and pt spoke about the importance of the conversation staying positively focused. SW helped pt to try to understand how moving forward will be important. SW encouraged pt to continue to attend group sessions to learn ways to remain calm and things that he could do to make himself feel good about his abilities. During conversation, pt needed a couple of reminders to stay positive and not be so accusatory. When redirected, pt seemed to accept the feedback and suggestions. JOHN explained that we would continue to talk about the upcoming phone call and strategize ways for it to be positive.
[2020-09-21 16:24] VITALS: BP 149/81
[2020-09-21] MEDS: ATORVASTATIN CALCIUM 20 MG TABLET PO SCH (20:23)
[2020-09-21] MEDS: DIVALPROEX ER 500 MG TAB.ER.24H PO SCH (20:24)
--- NOTE | 2020-09-21 20:36 | PDOC ---
Exam Note: Pasha Note: Please also refer to the separate dictated note~for this date of service dictated separately.~Patient seen individually. Discussed the patient with Nursing staff reviewed the chart.~Reviewed interim history and current functioning. Reviewed vital signs,~Labs/ Radiology~and current medications noted below. Continue current treatment with the changes noted in the dictated addendum note Assessment: Vital Signs/I&O: Vital Signs Date Time Temp Pulse Resp B/P (MAP) Pulse Ox O2 Delivery O2 Flow Rate FiO2 09/21/20 16:24 97.6 70 18 149/81 (103) 98 09/18/20 15:58 Room Air I & O 09/20/20 09/20/20 09/21/20 14:59 22:59 06:59 Intake Total 1080 ml 120 ml Balance 1080 ml 120 ml Labs: Laboratory Tests Test 09/21/20 07:44 09/21/20 12:08 09/21/20 16:55 Glucose (Fingerstick) 116 mg/dL (70-99) H 120 mg/dL (70-99) H 132 mg/dL (70-99) H Current Medications: I have reviewed the current psychotropics carefully including drug interactions. Risk benefit ratio favors no change other than as noted in my dictated progress note. Diagnosis: Problems: (1) Bipolar affective disorder, mixed (2) Anxiety disorder, unspecified (3) Impulse control disorder, unspecified (4) Bipolar disorder, curr episode mixed, severe, with psychotic features SHARRI GARCIA MD Sep 21, 2020 20:36
--- NOTE | 2020-09-21 23:54 | NUR ---
Pt ambulating around the unit this evening. Pt pleasant, calm and interactive. Compliant with whole medications. No issues with getting a new roommate tonight.
[2020-09-22 05:59] VITALS: BP 121/67
--- NOTE | 2020-09-22 06:49 | PDOC ---
Exam Note: Pasha Note: This note is a late entry for 09/20/2020 covers elements not covered in my initial note. Subjective: The patient was seen face to face in the evening of 09/20/2020 with Cee OCONNOR. Discussed with nursing staff, reviewed the chart. The patient slept 6 hours previous night. At one point he was agitated with activity therapy staff and during groups since he wanted to leave the group early but then redirected. He is somewhat impulsive but is perhaps a little better as Keppra has been reduced. I will defer to Dr. Flores, Neurology but the Keppra can be totally discontinued since the mother is convinced, behaviors has worsened since we have started on Keppra. Nevertheless EEG is abnormal but on the other hand Depakote is therapeutic now. Review of Systems: No CV, , pulmonary, eye, ENT system symptoms on review. Mental Status Exam: Oriented to himself. Speech is otherwise coherent. Abstraction is fair. Computation impaired. Language function is intact. Attention span is short. Mood and affect somewhat obsessive. Laboratory Data: Reviewed. Impression: Bipolar disorder mixed with psychotic features. Impulse control disorder. Anxiety disorder unspecified. Expressive aphasia. Mild cognitive impairment. Plan: Continue psychotropics from initial note. Assessment: Vital Signs/I&O: Vital Signs Date Time Temp Pulse Resp B/P (MAP) Pulse Ox O2 Delivery O2 Flow Rate FiO2 09/22/20 05:59 97.7 91 20 121/67 (85) 95 09/18/20 15:58 Room Air I & O 09/21/20 09/21/20 09/22/20 15:00 23:00 07:00 Intake Total 1080 ml 840 ml Balance 1080 ml 840 ml Labs: Laboratory Tests Test 09/21/20 07:44 09/21/20 12:08 09/21/20 16:55 Glucose (Fingerstick) 116 mg/dL (70-99) H 120 mg/dL (70-99) H 132 mg/dL (70-99) H Current Medications: I have reviewed the current psychotropics carefully including drug interactions. Risk benefit ratio favors no change other than as noted in my dictated progress note. Diagnosis: Problems: (1) Bipolar affective disorder, mixed (2) Anxiety disorder, unspecified (3) Impulse control disorder, unspecified (4) Bipolar disorder, curr episode mixed, severe, with psychotic features RADHA,MAN M MD Sep 22, 2020 06:49
--- NOTE | 2020-09-22 07:20 | PDOC ---
Exam Note: Pasha Note: This note is a late entry for 09/21/2020 covers elements not covered in my initial note. Subjective: The patient was seen face to face in the evening of 09/21/2020 with Cee OCONNOR. Discussed with nursing staff, reviewed the chart. The patient slept 7 hours previous night. We are still checking with Dr. Flores whether Keppra can be discontinued since Depakote is therapeutic. In the meantime he has been fairly cooperative. Review of Systems: No CV, , pulmonary, eye, ENT system symptoms on review. Mental Status Exam: Oriented to himself. I met with him in his room. He is trying to explain what he did during the day. The expressive aphasia seems to frustrate him a little bit. He controlled it reasonably well. Speech is otherwise coherent. Abstraction is fair. Computation impaired. Language function is intact. Attention span is short. Mood and affect somewhat obsessive. Laboratory Data: Reviewed. Impression: Bipolar disorder mixed with psychotic features. Impulse control disorder. Anxiety disorder unspecified. Expressive aphasia. Mild cognitive impairment. Plan: Continue psychotropics from initial note. Assessment: Vital Signs/I&O: Vital Signs Date Time Temp Pulse Resp B/P (MAP) Pulse Ox O2 Delivery O2 Flow Rate FiO2 09/22/20 05:59 97.7 91 20 121/67 (85) 95 09/18/20 15:58 Room Air I & O 09/21/20 09/21/20 09/22/20 15:00 23:00 07:00 Intake Total 1080 ml 840 ml Balance 1080 ml 840 ml Labs: Laboratory Tests Test 09/21/20 07:44 09/21/20 12:08 09/21/20 16:55 Glucose (Fingerstick) 116 mg/dL (70-99) H 120 mg/dL (70-99) H 132 mg/dL (70-99) H Current Medications: I have reviewed the current psychotropics carefully including drug interactions. Risk benefit ratio favors no change other than as noted in my dictated progress note. Diagnosis: Problems: (1) Bipolar affective disorder, mixed (2) Anxiety disorder, unspecified (3) Impulse control disorder, unspecified (4) Bipolar disorder, curr episode mixed, severe, with psychotic features SHARRI GARCIA MD Sep 22, 2020 07:20
[2020-09-22] MEDS: ASPIRIN CHEWABLE 81 MG TABLET. PO SCH (08:12)
[2020-09-22] MEDS: glipiZIDE 5 MG TABLET PO SCH ×2 (08:12→17:08)
[2020-09-22] MEDS: metFORMIN 500 MG TABLET PO SCH ×2 (08:13→17:08)
[2020-09-22] MEDS: LACTOBACILLUS RHAMNOSUS GG 1 CAPSULE. PO SCH ×2 (08:13→20:56)
[2020-09-22] MEDS: CHOLECALCIFEROL (VITAMIN D3) 50,000 UNIT CAPSULE PO SCH (08:13)
[2020-09-22] MEDS: levETIRAcetam 250 MG TABLET PO SCH ×2 (08:13→20:56)
[2020-09-22] MEDS: ARIPiprazole 5 MG TABLET PO SCH (08:13)
[2020-09-22] MEDS: TAMSULOSIN 0.4 MG CAP.ER.24H. PO SCH (08:14)
[2020-09-22] MEDS: EMPAGLIFLOZIN 12.5 MG PO SCH (08:29)
[2020-09-22] MEDS: PYRIDOXINE 50 MG TABLET. PO SCH (08:30)
[2020-09-22] MEDS: MUPIROCIN 2% TOPICAL OINTMENT 22GM TUBE. TP SCH ×2 (08:30→20:57)
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
[2020-09-22 16:13] VITALS: BP 132/76
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
--- NOTE | 2020-09-22 17:52 | NUR ---
Patient calm, compliant, and cooperative; occasionally mildly depressed. He spent time walking in the halls for exercise, and participated in groups. He was very keen to be helpful, wanting to assist passing out and picking up lunch trays. Will continue to monitor and report to oncoming shift
--- NOTE | 2020-09-22 20:49 | PDOC ---
Exam Note: Pasha Note: Please also refer to the separate dictated note~for this date of service dictated separately.~Patient seen individually. Discussed the patient with Nursing staff reviewed the chart.~Reviewed interim history and current functioning. Reviewed vital signs,~Labs/ Radiology~and current medications noted below. Continue current treatment with the changes noted in the dictated addendum note Assessment: Vital Signs/I&O: Vital Signs Date Time Temp Pulse Resp B/P (MAP) Pulse Ox O2 Delivery O2 Flow Rate FiO2 09/22/20 16:13 97.5 70 18 132/76 (94) 98 09/18/20 15:58 Room Air I & O 09/21/20 09/21/20 09/22/20 15:00 23:00 07:00 Intake Total 1080 ml 840 ml Balance 1080 ml 840 ml Labs: Laboratory Tests Test 09/22/20 12:13 Glucose (Fingerstick) 146 mg/dL (70-99) H Current Medications: I have reviewed the current psychotropics carefully including drug interactions. Risk benefit ratio favors no change other than as noted in my dictated progress note. Diagnosis: Problems: (1) Bipolar affective disorder, mixed (2) Anxiety disorder, unspecified (3) Impulse control disorder, unspecified (4) Bipolar disorder, curr episode mixed, severe, with psychotic features SHARRI GARCIA MD Sep 22, 2020 20:49
[2020-09-22] MEDS: ATORVASTATIN CALCIUM 20 MG TABLET PO SCH (20:56)
[2020-09-22] MEDS: DIVALPROEX ER 500 MG TAB.ER.24H PO SCH (20:56)
--- NOTE | 2020-09-23 00:10 | NUR ---
Patient in his room, very talkative tonight. He had been using his communication tablet to look at pictures in his room. He has been calm and pleasant, cooperative and compliant. He did not show any aggression or agitation this night.
[2020-09-23 06:39] VITALS: BP 113/75
[2020-09-23] MEDS: metFORMIN 500 MG TABLET PO SCH ×2 (07:47→17:00)
[2020-09-23] MEDS: ARIPiprazole 5 MG TABLET PO SCH (07:47)
[2020-09-23] MEDS: levETIRAcetam 250 MG TABLET PO SCH (07:47)
[2020-09-23] MEDS: ASPIRIN CHEWABLE 81 MG TABLET. PO SCH (07:47)
[2020-09-23] MEDS: glipiZIDE 5 MG TABLET PO SCH ×2 (07:48→16:59)
[2020-09-23] MEDS: TAMSULOSIN 0.4 MG CAP.ER.24H. PO SCH (07:48)
[2020-09-23] MEDS: LACTOBACILLUS RHAMNOSUS GG 1 CAPSULE. PO SCH ×2 (07:48→20:48)
[2020-09-23] MEDS: PYRIDOXINE 50 MG TABLET. PO SCH (07:49)
[2020-09-23] MEDS: MUPIROCIN 2% TOPICAL OINTMENT 22GM TUBE. TP SCH ×2 (07:49→21:00)
[2020-09-23] MEDS: EMPAGLIFLOZIN 12.5 MG PO SCH (07:50)
--- NOTE | 2020-09-23 09:17 | NUR ---
Patient alert and oriented with no complaints. Patient cooperative and takes meds whole with no problems. Patient abrasion on top forearm is healed and now a scar. No further concerns at this time.
--- NOTE | 2020-09-23 14:59 | NUR ---
SW was going to assist pt with phone call to his mother as previously arranged. Pt sleeping. SW requested from nursing that if he calls home that someone assist him and to keep the call time limited and positively focused. SW then attempted to call pt DPOA/mother to explain that pt had fallen asleep so that he might call later with assistance from nursing staff. However, DPOA/mother did not answer. SW left message as such. SW reported to nursing staff that message was left with DPOA/mother. Nursing appreciative.
[2020-09-23 15:55] VITALS: BP 123/80
[2020-09-23] MEDS: traZODone 50 MG TABLET. PO PRN (20:48)
[2020-09-23] MEDS: ATORVASTATIN CALCIUM 20 MG TABLET PO SCH (20:48)
[2020-09-23] MEDS: DIVALPROEX ER 500 MG TAB.ER.24H PO SCH (20:49)
--- NOTE | 2020-09-23 20:58 | PDOC ---
Exam Note: Pasha Note: Please also refer to the separate dictated note~for this date of service dictated separately.~Patient seen individually. Discussed the patient with Nursing staff reviewed the chart.~Reviewed interim history and current functioning. Reviewed vital signs,~Labs/ Radiology~and current medications noted below. Continue current treatment with the changes noted in the dictated addendum note Assessment: Vital Signs/I&O: Vital Signs Date Time Temp Pulse Resp B/P (MAP) Pulse Ox O2 Delivery O2 Flow Rate FiO2 09/23/20 15:55 97.6 67 16 123/80 (94) 98 09/23/20 06:39 Room Air I & O 09/22/20 09/22/20 09/23/20 15:00 23:00 07:00 Intake Total 480 ml 240 ml Balance 480 ml 240 ml Labs: Laboratory Tests Test 09/23/20 07:41 Glucose (Fingerstick) 114 mg/dL (70-99) H Current Medications: Meds: Current Medications Medications (Trade) Dose Ordered Sig/Joseph Route PRN Reason Start Time Stop Time Status Last Admin Dose Admin Fluvoxamine Maleate (Luvox) 50 mg DAILY PO 09/23/20 09:00 09/23/20 07:48 I have reviewed the current psychotropics carefully including drug interactions. Risk benefit ratio favors no change other than as noted in my dictated progress note. Diagnosis: Problems: (1) Bipolar affective disorder, mixed (2) Anxiety disorder, unspecified (3) Impulse control disorder, unspecified (4) Bipolar disorder, curr episode mixed, severe, with psychotic features SHARRI GARCIA MD Sep 23, 2020 20:58
--- NOTE | 2020-09-23 22:04 | NUR ---
Pt sitting in chair, dozing. He awakened for his medications and assessment, pleasant and cooperative. Afterwards, pt told this nurse he was not yet ready for bed and would like to stay up working on his tablet. Will continue to monitor.
[2020-09-24 06:00] VITALS: BP 123/74
[2020-09-24] MEDS: LACTOBACILLUS RHAMNOSUS GG 1 CAPSULE. PO SCH ×2 (07:39→20:43)
[2020-09-24] MEDS: metFORMIN 500 MG TABLET PO SCH ×2 (07:39→17:03)
[2020-09-24] MEDS: ASPIRIN CHEWABLE 81 MG TABLET. PO SCH (07:39)
[2020-09-24] MEDS: ARIPiprazole 5 MG TABLET PO SCH (07:39)
[2020-09-24] MEDS: glipiZIDE 5 MG TABLET PO SCH ×2 (07:40→17:03)
[2020-09-24] MEDS: TAMSULOSIN 0.4 MG CAP.ER.24H. PO SCH (07:40)
[2020-09-24] MEDS: PYRIDOXINE 50 MG TABLET. PO SCH (07:40)
[2020-09-24] MEDS: EMPAGLIFLOZIN 12.5 MG PO SCH (07:44)
[2020-09-24] MEDS: MUPIROCIN 2% TOPICAL OINTMENT 22GM TUBE. TP SCH ×2 (09:00→20:44)
--- NOTE | 2020-09-24 09:25 | NUR ---
Patient is alert and oriented. Anxious this morning and stating he is fdc. He doesn't understand why he is still here. He was told that he would be here for 3 days and he knows it has been longer. Discussed with patient that we are doing our best to help with family conflict and that he should be going home. He gets upset about his mom and sister but the apologizes to me because he knows it is not my fault. He is visibly frustrated. Will monitor patient to see how he does this AM. He is secluding to his room and not involved as much in activities on the floor. He feels like he has done his share of the work and he thinks his dad put him here to work and he is done. He just repeats that he is done. Will continue to monitor.
[2020-09-24 14:31] VITALS: BP 120/70
[2020-09-24] MEDS: ATORVASTATIN CALCIUM 20 MG TABLET PO SCH (20:42)
[2020-09-24] MEDS: traZODone 50 MG TABLET. PO PRN (20:42)
[2020-09-24] MEDS: DIVALPROEX ER 500 MG TAB.ER.24H PO SCH (20:43)
--- NOTE | 2020-09-24 20:51 | PDOC ---
Exam Note: Pasha Note: Please also refer to the separate dictated note~for this date of service dictated separately.~Patient seen individually. Discussed the patient with Nursing staff reviewed the chart.~Reviewed interim history and current functioning. Reviewed vital signs,~Labs/ Radiology~and current medications noted below. Continue current treatment with the changes noted in the dictated addendum note Assessment: Vital Signs/I&O: Vital Signs Date Time Temp Pulse Resp B/P (MAP) Pulse Ox O2 Delivery O2 Flow Rate FiO2 09/24/20 14:31 97.6 80 19 120/70 (87) 96 09/24/20 06:00 Room Air I & O 09/23/20 09/23/20 09/24/20 15:00 23:00 07:00 Intake Total 1100 ml 340 ml Balance 1100 ml 340 ml Labs: Laboratory Tests Test 09/24/20 07:44 Glucose (Fingerstick) 91 mg/dL (70-99) Current Medications: I have reviewed the current psychotropics carefully including drug interactions. Risk benefit ratio favors no change other than as noted in my dictated progress note. Diagnosis: Problems: (1) Bipolar affective disorder, mixed (2) Anxiety disorder, unspecified (3) Impulse control disorder, unspecified (4) Bipolar disorder, curr episode mixed, severe, with psychotic features SHARRI GARCIA MD Sep 24, 2020 20:50
--- NOTE | 2020-09-24 22:32 | NUR ---
Pt walking the unit this evening. Pleasant and talkative. Compliant with whole medications. No agitation.
[2020-09-25 06:31] VITALS: BP 107/66
--- NOTE | 2020-09-25 07:11 | PDOC ---
Exam Note: Pasha Note: This note is a late entry for 09/22/2020 covers elements not covered in my initial note. Subjective: The patient was seen face to face in the morning of 09/22/2020 for treatment team meeting with Milli Carpenter Nikki (social media specialist), Lisa, activity therapy staff, and Jere OCONNOR. Discussed with nursing staff, reviewed the chart. The patient slept 6-1/2 hours previous night. The patients mother Radha attended the treatment team meeting. We had a lengthy discussion about his progress showing some improvement, little withdrawn recently but some of this could be due to initiating and adjusting his psychotropics. Appetite is 100%. He is helpful around the unit, somewhat tired in the day. Review of Systems: No CV, , pulmonary, eye, ENT system symptoms on review. Mental Status Exam: Oriented to himself. Speech is otherwise coherent. Abstraction is fair. Computation impaired. Language function is intact. Attention span is short. Mood and affect somewhat withdrawn. Laboratory Data: Reviewed. Impression: Bipolar disorder mixed with psychotic features. Impulse control disorder. Anxiety disorder unspecified. Expressive aphasia. Mild cognitive impairment. Plan: We have reduced the Keppra. Will defer to Dr. Flores, neurologist whether this should be stopped or maintained. From a psychiatric standpoint, it is best if it is discontinued because it increases his irritability but again I will leave it for Dr. Flores to decide. Assessment: Vital Signs/I&O: Vital Signs Date Time Temp Pulse Resp B/P (MAP) Pulse Ox O2 Delivery O2 Flow Rate FiO2 09/25/20 06:31 97.4 86 16 107/66 (80) 94 09/24/20 06:00 Room Air I & O 09/24/20 09/24/20 09/25/20 15:00 23:00 07:00 Intake Total 120 ml 720 ml Balance 120 ml 720 ml Labs: Laboratory Tests Test 09/24/20 07:44 Glucose (Fingerstick) 91 mg/dL (70-99) Current Medications: I have reviewed the current psychotropics carefully including drug interactions. Risk benefit ratio favors no change other than as noted in my dictated progress note. Diagnosis: Problems: (1) Anxiety disorder, unspecified (2) Impulse control disorder, unspecified (3) Bipolar disorder, curr episode mixed, severe, with psychotic features SHARRI GARCIA MD Sep 25, 2020 07:11
--- NOTE | 2020-09-25 07:29 | PDOC ---
Exam Note: Pasha Note: This note is a late entry for 09/23/2020 covers elements not covered in my initial note. Subjective: The patient was seen face to face in the evening of 09/23/2020 with Marlen OCONNOR. Discussed with nursing staff, reviewed the chart. Reportedly, the patient has been doing better, still withdrawn. He had a telephone conversation with his mother which was appropriate. He is somewhat anxious, restless in the evening but appropriate as I met with him. The patient slept 6-1/2 hours previous night. Review of Systems: He is hard of hearing, difficulty expressing himself. No CV, , pulmonary, eye system symptoms on review. Mental Status Exam: Oriented to himself. He is a little anxious, restless, but was working on his puzzles and listening to music. We addressed this. Speech is otherwise coherent. Abstraction is fair. Computation impaired. Language function is intact. Attention span is short. Mood and affect improved, somewhat anxious. Laboratory Data: Reviewed. Impression: Bipolar disorder mixed with psychotic features. Impulse control disorder. Anxiety disorder unspecified. Expressive aphasia. Mild cognitive impairment. Plan: Continue psychotropics from initial note. Assessment: Vital Signs/I&O: Vital Signs Date Time Temp Pulse Resp B/P (MAP) Pulse Ox O2 Delivery O2 Flow Rate FiO2 09/25/20 06:31 97.4 86 16 107/66 (80) 94 09/24/20 06:00 Room Air I & O 09/24/20 09/24/20 09/25/20 15:00 23:00 07:00 Intake Total 120 ml 720 ml Balance 120 ml 720 ml Labs: Laboratory Tests Test 09/24/20 07:44 09/25/20 07:12 Glucose (Fingerstick) 91 mg/dL (70-99) 133 mg/dL (70-99) H Current Medications: I have reviewed the current psychotropics carefully including drug interactions. Risk benefit ratio favors no change other than as noted in my dictated progress note. Diagnosis: Problems: (1) Bipolar affective disorder, mixed (2) Anxiety disorder, unspecified (3) Impulse control disorder, unspecified (4) Bipolar disorder, curr episode mixed, severe, with psychotic features SHARRI GARCIA MD Sep 25, 2020 07:29
--- NOTE | 2020-09-25 07:48 | PDOC ---
Exam Note: Pasha Note: This note is a late entry for 09/24/2020 covers elements not covered in my initial note. Subjective: The patient was seen face to face in the evening of 09/24/2020 with Marlen OCONNOR. Discussed with nursing staff, reviewed the chart. Review of Systems: He is hard of hearing, difficulty expressing himself. No CV, , pulmonary, eye system symptoms on review. Mental Status Exam: Oriented to himself and situation. He has been helpful with nursing aids around the unit, quite appropriate, not agitated, less obsessive. Speech has some hesitancy, rapid at times. Abstraction is fair. Computation impaired. Language function is intact. Attention span is short. Mood and affect improved, somewhat anxious. Laboratory Data: Reviewed. Impression: Bipolar disorder mixed with psychotic features. Impulse control disorder. Anxiety disorder unspecified. Expressive aphasia. Mild cognitive impairment. Plan: Continue psychotropics from initial note. Assessment: Vital Signs/I&O: Vital Signs Date Time Temp Pulse Resp B/P (MAP) Pulse Ox O2 Delivery O2 Flow Rate FiO2 09/25/20 06:31 97.4 86 16 107/66 (80) 94 09/24/20 06:00 Room Air I & O 09/24/20 09/24/20 09/25/20 14:59 22:59 06:59 Intake Total 120 ml 720 ml Balance 120 ml 720 ml Labs: Laboratory Tests Test 09/25/20 07:12 Glucose (Fingerstick) 133 mg/dL (70-99) H Current Medications: I have reviewed the current psychotropics carefully including drug interactions. Risk benefit ratio favors no change other than as noted in my dictated progress note. Diagnosis: Problems: (1) Anxiety disorder, unspecified (2) Impulse control disorder, unspecified (3) Bipolar disorder, curr episode mixed, severe, with psychotic features SHARRI GARCIA MD Sep 25, 2020 07:48
[2020-09-25] MEDS: glipiZIDE 5 MG TABLET PO SCH ×2 (08:56→17:07)
[2020-09-25] MEDS: EMPAGLIFLOZIN 12.5 MG PO SCH (08:56)
[2020-09-25] MEDS: ASPIRIN CHEWABLE 81 MG TABLET. PO SCH (08:56)
[2020-09-25] MEDS: metFORMIN 500 MG TABLET PO SCH ×2 (08:56→17:08)
[2020-09-25] MEDS: ARIPiprazole 5 MG TABLET PO SCH (08:56)
[2020-09-25] MEDS: MUPIROCIN 2% TOPICAL OINTMENT 22GM TUBE. TP SCH ×2 (08:57→20:36)
[2020-09-25] MEDS: TAMSULOSIN 0.4 MG CAP.ER.24H. PO SCH (08:57)
[2020-09-25] MEDS: LACTOBACILLUS RHAMNOSUS GG 1 CAPSULE. PO SCH ×2 (08:57→20:36)
[2020-09-25] MEDS: PYRIDOXINE 50 MG TABLET. PO SCH (08:58)
[2020-09-25 10:03] LABS: ALBUMIN 3.6 g/dL (3.4-5.0); CALCIUM 9.2 mg/dL (8.5-10.1); CREATININE 1.1 mg/dL (0.7-1.3); GFR 69.5; POTASSIUM 4.2 mmol/L (3.5-5.1); TOTAL BILIRUBIN 0.3 mg/dL (0.2-1.0); TOTAL PROTEIN 7.2 g/dL (6.4-8.2)
[2020-09-25 10:04] LABS: BASO % 0 % (0-3); EOS # 0.1 x10^3/uL (0.0-0.7); EOS % 1 % (0-3); HEMATOCRIT 44.4 % (39.0-53.0); HEMOGLOBIN 14.3 g/dL (13.0-17.5); LYMPH # 1.3 x10^3/uL (1.0-4.8); LYMPH % 18 % (24-48); MEAN CORPUSCULAR HEMOGLOBIN 29 pg (25-35); MEAN CORPUSCULAR HGB CONC 32 g/dL (31-37); MEAN CORPUSCULAR VOLUME 90 fL (79-100); MONO # 0.7 x10^3/uL (0.0-1.1); MONO % 9 % (0-9); NEUT # 5.2 x10^3uL (1.8-7.7); NEUT % 72 % (31-73); PLATELET COUNT 172 x10^3/uL (140-400); RED BLOOD COUNT 4.92 x10^6/uL (4.30-5.70); RED CELL DISTRIBUTION WIDTH 14.1 % (11.5-14.5); WHITE BLOOD COUNT 7.2 x10^3/uL (4.0-11.0)
--- NOTE | 2020-09-25 11:27 | NUR ---
Pt is calm, cooperative, and compliant. No agitation, no aggression, no hallucinations, no delusions. He is compliant with his medication and assessment. As part of his behavior plan pt was able to successfully assist staff with simple cleaning duties today such as cleaning the hand rails and empting trash and replacing the trash bag.
[2020-09-25 15:50] VITALS: BP 114/71
--- NOTE | 2020-09-25 20:35 | PDOC ---
Exam Note: Pasha Note: Please also refer to the separate dictated note~for this date of service dictated separately.~Patient seen individually. Discussed the patient with Nursing staff reviewed the chart.~Reviewed interim history and current functioning. Reviewed vital signs,~Labs/ Radiology~and current medications noted below. Continue current treatment with the changes noted in the dictated addendum note Assessment: Vital Signs/I&O: Vital Signs Date Time Temp Pulse Resp B/P (MAP) Pulse Ox O2 Delivery O2 Flow Rate FiO2 09/25/20 15:50 98.1 68 17 114/71 (85) 96 Room Air I & O 09/24/20 09/24/20 09/25/20 15:00 23:00 07:00 Intake Total 120 ml 720 ml Balance 120 ml 720 ml Labs: Laboratory Tests Test 09/25/20 07:12 09/25/20 08:40 Glucose (Fingerstick) 133 mg/dL (70-99) H White Blood Count 7.2 x10^3/uL (4.0-11.0) Red Blood Count 4.92 x10^6/uL (4.30-5.70) Hemoglobin 14.3 g/dL (13.0-17.5) Hematocrit 44.4 % (39.0-53.0) Mean Corpuscular Volume 90 fL (79-100) Mean Corpuscular Hemoglobin 29 pg (25-35) Mean Corpuscular Hemoglobin Concent 32 g/dL (31-37) Red Cell Distribution Width 14.1 % (11.5-14.5) Platelet Count 172 x10^3/uL (140-400) Neutrophils (%) (Auto) 72 % (31-73) Lymphocytes (%) (Auto) 18 % (24-48) L Monocytes (%) (Auto) 9 % (0-9) Eosinophils (%) (Auto) 1 % (0-3) Basophils (%) (Auto) 0 % (0-3) Neutrophils # (Auto) 5.2 x10^3uL (1.8-7.7) Lymphocytes # (Auto) 1.3 x10^3/uL (1.0-4.8) Monocytes # (Auto) 0.7 x10^3/uL (0.0-1.1) Eosinophils # (Auto) 0.1 x10^3/uL (0.0-0.7) Basophils # (Auto) 0.0 x10^3/uL (0.0-0.2) Sodium Level 140 mmol/L (136-145) Potassium Level 4.2 mmol/L (3.5-5.1) Chloride Level 102 mmol/L (98-107) Carbon Dioxide Level 27 mmol/L (21-32) Anion Gap 11 (6-14) Blood Urea Nitrogen 13 mg/dL (8-26) Creatinine 1.1 mg/dL (0.7-1.3) Estimated GFR (Cockcroft-Gault) 69.5 BUN/Creatinine Ratio 12 (6-20) Glucose Level 144 mg/dL (70-99) H Calcium Level 9.2 mg/dL (8.5-10.1) Total Bilirubin 0.3 mg/dL (0.2-1.0) Aspartate Amino Transferase (AST) 33 U/L (15-37) Alanine Aminotransferase (ALT) 56 U/L (16-63) Alkaline Phosphatase 82 U/L (46-116) Total Protein 7.2 g/dL (6.4-8.2) Albumin 3.6 g/dL (3.4-5.0) Albumin/Globulin Ratio 1.0 (1.0-1.7) Current Medications: I have reviewed the current psychotropics carefully including drug interactions. Risk benefit ratio favors no change other than as noted in my dictated progress note. Diagnosis: Problems: (1) Bipolar affective disorder, mixed (2) Anxiety disorder, unspecified (3) Impulse control disorder, unspecified (4) Bipolar disorder, curr episode mixed, severe, with psychotic features SHARRI GARCIA MD Sep 25, 2020 20:35
[2020-09-25] MEDS: ATORVASTATIN CALCIUM 20 MG TABLET PO SCH (20:36)
[2020-09-25] MEDS: DIVALPROEX ER 500 MG TAB.ER.24H PO SCH (20:36)
--- NOTE | 2020-09-25 22:17 | NUR ---
Pt in bed this evening. Pleasant when approached, stated he just wanted to "chill" tonight. Compliant with HS medications.
[2020-09-26 06:24] VITALS: BP 110/68
--- NOTE | 2020-09-26 07:40 | PDOC ---
Exam Note: Pasha Note: This note is a late entry for 09/25/2020 covers elements not covered in my initial note. Subjective: The patient was seen face to face in the evening of 09/25/2020 with Deisy OCONNOR. Discussed with nursing staff, reviewed the chart. The patient slept 6-1/4 hours previous night. He has generally had a better day, cleaning the unit doors and handles and headrails wiping them off. Review of Systems: He is hard of hearing. No CV, , pulmonary, eye system symptoms on review. Mental Status Exam: Oriented to himself and situation. I met with him in his room. He is quite pleasant, cooperative, verbal and appropriate. Speech rapid at times, coherent. Abstraction is fair. Computation impaired. Language function is intact. Attention span is short. Mood and affect improved, somewhat anxious. Laboratory Data: Reviewed. Impression: Bipolar disorder mixed with psychotic features. Impulse control disorder. Anxiety disorder unspecified. Expressive aphasia. Mild cognitive impairment. Plan: Continue psychotropics from initial note. Assessment: Vital Signs/I&O: Vital Signs Date Time Temp Pulse Resp B/P (MAP) Pulse Ox O2 Delivery O2 Flow Rate FiO2 09/26/20 06:24 97.4 81 16 110/68 (82) 94 Room Air I & O 09/25/20 09/25/20 09/26/20 15:00 23:00 07:00 Intake Total 480 ml 480 ml 240 ml Balance 480 ml 480 ml 240 ml Labs: Laboratory Tests Test 09/25/20 08:40 White Blood Count 7.2 x10^3/uL (4.0-11.0) Red Blood Count 4.92 x10^6/uL (4.30-5.70) Hemoglobin 14.3 g/dL (13.0-17.5) Hematocrit 44.4 % (39.0-53.0) Mean Corpuscular Volume 90 fL (79-100) Mean Corpuscular Hemoglobin 29 pg (25-35) Mean Corpuscular Hemoglobin Concent 32 g/dL (31-37) Red Cell Distribution Width 14.1 % (11.5-14.5) Platelet Count 172 x10^3/uL (140-400) Neutrophils (%) (Auto) 72 % (31-73) Lymphocytes (%) (Auto) 18 % (24-48) L Monocytes (%) (Auto) 9 % (0-9) Eosinophils (%) (Auto) 1 % (0-3) Basophils (%) (Auto) 0 % (0-3) Neutrophils # (Auto) 5.2 x10^3uL (1.8-7.7) Lymphocytes # (Auto) 1.3 x10^3/uL (1.0-4.8) Monocytes # (Auto) 0.7 x10^3/uL (0.0-1.1) Eosinophils # (Auto) 0.1 x10^3/uL (0.0-0.7) Basophils # (Auto) 0.0 x10^3/uL (0.0-0.2) Sodium Level 140 mmol/L (136-145) Potassium Level 4.2 mmol/L (3.5-5.1) Chloride Level 102 mmol/L (98-107) Carbon Dioxide Level 27 mmol/L (21-32) Anion Gap 11 (6-14) Blood Urea Nitrogen 13 mg/dL (8-26) Creatinine 1.1 mg/dL (0.7-1.3) Estimated GFR (Cockcroft-Gault) 69.5 BUN/Creatinine Ratio 12 (6-20) Glucose Level 144 mg/dL (70-99) H Calcium Level 9.2 mg/dL (8.5-10.1) Total Bilirubin 0.3 mg/dL (0.2-1.0) Aspartate Amino Transferase (AST) 33 U/L (15-37) Alanine Aminotransferase (ALT) 56 U/L (16-63) Alkaline Phosphatase 82 U/L (46-116) Total Protein 7.2 g/dL (6.4-8.2) Albumin 3.6 g/dL (3.4-5.0) Albumin/Globulin Ratio 1.0 (1.0-1.7) Current Medications: I have reviewed the current psychotropics carefully including drug interactions. Risk benefit ratio favors no change other than as noted in my dictated progress note. Diagnosis: Problems: (1) Bipolar affective disorder, mixed (2) Anxiety disorder, unspecified (3) Impulse control disorder, unspecified (4) Bipolar disorder, curr episode mixed, severe, with psychotic features SHARRI GARCIA MD Sep 26, 2020 07:40
[2020-09-26] MEDS: glipiZIDE 5 MG TABLET PO SCH ×2 (08:14→17:28)
[2020-09-26] MEDS: MUPIROCIN 2% TOPICAL OINTMENT 22GM TUBE. TP SCH ×2 (08:14→20:55)
[2020-09-26] MEDS: metFORMIN 500 MG TABLET PO SCH ×2 (08:14→17:28)
[2020-09-26] MEDS: ARIPiprazole 5 MG TABLET PO SCH (08:15)
[2020-09-26] MEDS: LACTOBACILLUS RHAMNOSUS GG 1 CAPSULE. PO SCH ×2 (08:15→20:55)
[2020-09-26] MEDS: TAMSULOSIN 0.4 MG CAP.ER.24H. PO SCH (08:15)
[2020-09-26] MEDS: ASPIRIN CHEWABLE 81 MG TABLET. PO SCH (08:15)
[2020-09-26] MEDS: PYRIDOXINE 50 MG TABLET. PO SCH (08:15)
[2020-09-26] MEDS: EMPAGLIFLOZIN 12.5 MG PO SCH (08:25)
--- NOTE | 2020-09-26 09:50 | NUR ---
Pt is calm, cooperative, and compliant. No agitation, no aggression, no hallucinations, no delusions. He is compliant with his medication and assessment. As part of his behavior plan pt was able to successfully assist staff with simple cleaning duties today such as cleaning the windows and cleaning wheel chairs and attaching clean tags to them.
[2020-09-26 16:12] VITALS: BP 127/76
--- NOTE | 2020-09-26 20:52 | PDOC ---
Exam Note: Pasha Note: Please also refer to the separate dictated note~for this date of service dictated separately.~Patient seen individually. Discussed the patient with Nursing staff reviewed the chart.~Reviewed interim history and current functioning. Reviewed vital signs,~Labs/ Radiology~and current medications noted below. Continue current treatment with the changes noted in the dictated addendum note Assessment: Vital Signs/I&O: Vital Signs Date Time Temp Pulse Resp B/P (MAP) Pulse Ox O2 Delivery O2 Flow Rate FiO2 09/26/20 16:12 97.5 65 19 127/76 (93) 98 09/26/20 06:24 Room Air I & O 09/25/20 09/25/20 09/26/20 15:00 23:00 07:00 Intake Total 480 ml 480 ml 240 ml Balance 480 ml 480 ml 240 ml Labs: Laboratory Tests Test 09/26/20 08:04 Glucose (Fingerstick) 151 mg/dL (70-99) H Current Medications: I have reviewed the current psychotropics carefully including drug interactions. Risk benefit ratio favors no change other than as noted in my dictated progress note. Diagnosis: Problems: (1) Bipolar affective disorder, mixed (2) Anxiety disorder, unspecified (3) Impulse control disorder, unspecified (4) Bipolar disorder, curr episode mixed, severe, with psychotic features SHARRI GARCIA MD Sep 26, 2020 20:52
[2020-09-26] MEDS: ATORVASTATIN CALCIUM 20 MG TABLET PO SCH (20:55)
[2020-09-26] MEDS: DIVALPROEX ER 500 MG TAB.ER.24H PO SCH (20:55)
--- NOTE | 2020-09-26 23:52 | NUR ---
Pt in his room all evening looking at his tablet. Compliant with whole medications. Calm and pleasant.
[2020-09-27 06:16] VITALS: BP 125/7
--- NOTE | 2020-09-27 07:21 | PDOC ---
Exam Note: Pasha Note: This note is a late entry for 09/26/2020 covers elements not covered in my initial note. Subjective: The patient was seen face to face in the evening of 09/26/2020 with Deisy OCONNOR. Discussed with nursing staff, reviewed the chart. The patient slept 6-1/4 hours previous night. He did well previous night and during the day. He has been cleaning furniture, etc. on the unit. Review of Systems: He is hard of hearing. No CV, , pulmonary, eye system symptoms on review. Mental Status Exam: Oriented to himself and situation. I met with him in his room. He is fairly pleasant, interactive, less distractible. Speech rapid at times, coherent. Abstraction is fair. Computation impaired. Language function is intact. Attention span is short. Mood and affect improved. Laboratory Data: Reviewed. Impression: Bipolar disorder mixed with psychotic features. Impulse control disorder. Anxiety disorder unspecified. Expressive aphasia. Mild cognitive impairment. Plan: Continue psychotropics from initial note. Assessment: Vital Signs/I&O: Vital Signs Date Time Temp Pulse Resp B/P (MAP) Pulse Ox O2 Delivery O2 Flow Rate FiO2 09/27/20 06:16 97.4 76 18 125/7 (46) 96 09/26/20 06:24 Room Air I & O 09/26/20 09/26/20 09/27/20 15:00 23:00 07:00 Intake Total 1080 ml 480 ml 240 ml Balance 1080 ml 480 ml 240 ml Labs: Laboratory Tests Test 09/26/20 08:04 09/27/20 07:16 Glucose (Fingerstick) 151 mg/dL (70-99) H 110 mg/dL (70-99) H Current Medications: I have reviewed the current psychotropics carefully including drug interactions. Risk benefit ratio favors no change other than as noted in my dictated progress note. Diagnosis: Problems: (1) Anxiety disorder, unspecified (2) Impulse control disorder, unspecified (3) Bipolar disorder, curr episode mixed, severe, with psychotic features SHARRI GARCIA MD Sep 27, 2020 07:21
[2020-09-27] MEDS: ASPIRIN CHEWABLE 81 MG TABLET. PO SCH (09:11)
[2020-09-27] MEDS: PYRIDOXINE 50 MG TABLET. PO SCH (09:11)
[2020-09-27] MEDS: TAMSULOSIN 0.4 MG CAP.ER.24H. PO SCH (09:12)
[2020-09-27] MEDS: LACTOBACILLUS RHAMNOSUS GG 1 CAPSULE. PO SCH ×2 (09:12→20:17)
[2020-09-27] MEDS: EMPAGLIFLOZIN 10 MG TABLET. PO SCH (09:13)
[2020-09-27] MEDS: glipiZIDE 5 MG TABLET PO SCH ×3 (09:13→20:17)
[2020-09-27] MEDS: metFORMIN 500 MG TABLET PO SCH (09:15)
[2020-09-27] MEDS: MUPIROCIN 2% TOPICAL OINTMENT 22GM TUBE. TP SCH (09:15)
[2020-09-27] MEDS: ARIPiprazole 5 MG TABLET PO SCH (09:15)
--- NOTE | 2020-09-27 11:00 | NUR ---
Patient was reading the [employer] sales ad after breakfast. 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 Patients has less expressive aphasia than on arrival. Patient is calm, cooperative and compliant with medications. Patient has had no episodes of aggression or irritability.
[2020-09-27 12:00] VITALS: BP 196/81
[2020-09-27 12:05] VITALS: BP 157/81
--- NOTE | 2020-09-27 12:11 | NUR ---
ALMAZ was doing 15 minute rounds at 1200 and patient was laying in bed having a seizure when she approached his room. ALMAZ radioed for nursing staff, side rails raised for safety, patient vital signs taken, recorded in [employer]. BP was elevated immediately after seizure, they have now returned to a more normal range. Patient bit the right side of his tongue and possibly his lower lip. Patient did not urinate or defecate during seizure. Dr Flores paged. Awaiting call back.
[2020-09-27 13:18] VITALS: BP 196/81
--- NOTE | 2020-09-27 13:21 | NUR ---
Patient resting in bed and called out. Nurse was outside of room in pass thru hallway and entered room immediately. Patient began to have seizure. This was second seizure this day. First one was at 1200 and this one occurred at 1318. Patient did not lose control of his bladder or bowels. Vital signs obtained and were elevated, see intervention, resp [address] Elizabeth paged, patient did not have an order for ativan. Order received to start IV and give ativan. IV started in left AC
[2020-09-27 13:27] VITALS: BP 160/73
--- NOTE | 2020-09-27 13:55 | NUR ---
Spoke with Dr Durand, will restart Keppra [address] Elizabeth gave order for IV Keppra 500mg now, then start start PO Keppra 500 mg BID tonight.
[2020-09-27 16:25] VITALS: BP 112/69
[2020-09-27] MEDS ORDERED: MUPIROCIN 2% TOPICAL OINTMENT 22GM TUBE. TP PRN (19:45)
[2020-09-27] MEDS: DIVALPROEX ER 500 MG TAB.ER.24H PO SCH (20:18)
[2020-09-27] MEDS: ATORVASTATIN CALCIUM 20 MG TABLET PO SCH (20:18)
[2020-09-27] MEDS: levETIRAcetam 500 MG TABLET PO SCH (20:18)
--- NOTE | 2020-09-27 20:46 | PDOC ---
Exam Note: Pasha Note: Please also refer to the separate dictated note~for this date of service dictated separately.~Patient seen individually. Discussed the patient with Nursing staff reviewed the chart.~Reviewed interim history and current functioning. Reviewed vital signs,~Labs/ Radiology~and current medications noted below. Continue current treatment with the changes noted in the dictated addendum note Assessment: Vital Signs/I&O: Vital Signs Date Time Temp Pulse Resp B/P (MAP) Pulse Ox O2 Delivery O2 Flow Rate FiO2 09/27/20 16:25 98.9 70 16 112/69 (83) 96 09/27/20 13:27 Room Air I & O 09/26/20 09/26/20 09/27/20 14:59 22:59 06:59 Intake Total 1080 ml 480 ml 240 ml Balance 1080 ml 480 ml 240 ml Labs: Laboratory Tests Test 09/27/20 07:16 09/27/20 17:25 Glucose (Fingerstick) 110 mg/dL (70-99) H 135 mg/dL (70-99) H Current Medications: Meds: Current Medications Medications (Trade) Dose Ordered Sig/Joseph Route PRN Reason Start Time Stop Time Status Last Admin Dose Admin Empaglifozin (Jardiance) 10 mg DAILY PO 09/27/20 09:00 09/27/20 09:13 Metformin HCl (Glucophage) 500 mg DAILYWBKFT PO 09/27/20 08:00 09/27/20 09:15 Glipizide (Glucotrol) 5 mg TID PO 09/27/20 09:00 09/27/20 20:17 Lorazepam (Ativan Inj) 2 mg PRN Q4HRS PRN IVP seizures 09/27/20 13:30 09/27/20 13:31 Levetiracetam (Keppra) 500 mg BID PO 09/27/20 21:00 09/27/20 20:18 Levetiracetam 500 mg/Sodium Chloride 100 ml @ 400 mls/hr 1X ONCE IV 09/27/20 15:30 09/27/20 15:44 DC 09/27/20 15:35 I have reviewed the current psychotropics carefully including drug interactions. Risk benefit ratio favors no change other than as noted in my dictated progress note. Diagnosis: Problems: (1) Anxiety disorder, unspecified (2) Impulse control disorder, unspecified (3) Bipolar disorder, curr episode mixed, severe, with psychotic features SHARRI GARCIA MD Sep 27, 2020 20:46
--- NOTE | 2020-09-27 23:19 | NUR ---
Pt has been in bed this evening. He was easily awaken for meds walked to BR and back without difficulty. No seizure activity observed tonight.
[2020-09-28 06:00] VITALS: BP 108/67
[2020-09-28] MEDS: EMPAGLIFLOZIN 10 MG TABLET. PO SCH (09:00)
[2020-09-28] MEDS: ASPIRIN CHEWABLE 81 MG TABLET. PO SCH (09:53)
[2020-09-28] MEDS: ARIPiprazole 5 MG TABLET PO SCH (09:53)
[2020-09-28] MEDS: metFORMIN 500 MG TABLET PO SCH (09:53)
[2020-09-28] MEDS: TAMSULOSIN 0.4 MG CAP.ER.24H. PO SCH (09:53)
[2020-09-28] MEDS: levETIRAcetam 500 MG TABLET PO SCH ×2 (09:54→19:52)
[2020-09-28] MEDS: LACTOBACILLUS RHAMNOSUS GG 1 CAPSULE. PO SCH ×2 (09:54→19:49)
[2020-09-28] MEDS: PYRIDOXINE 50 MG TABLET. PO SCH (09:54)
[2020-09-28] MEDS: glipiZIDE 5 MG TABLET PO SCH ×3 (09:54→19:52)
--- NOTE | 2020-09-28 11:02 | PN ---
DATE: 09/27/2020 SUBJECTIVE: The patient apparently has had 2 tonic-clonic seizures this morning. He apparently known to have seizures before, but said he has not had one for a long time, although he could not be more specific and he clearly has bitten his lip and tongue, although it was not clear whether he was incontinent of urine. Apparently, his Keppra was discontinued and was started on Depakote and therefore we gave him loading dose of Keppra IV and started him on Keppra 500 mg twice a day. PHYSICAL EXAMINATION: GENERAL: When I saw him this afternoon, he was resting slightly propped up in bed, in no apparent respiratory distress. No pallor, jaundice, cyanosis, or thyromegaly. No jugular venous distention or limb edema. VITAL SIGNS: Heart rate was 72, blood pressure was 160/73, his temperature was 97.4, respiratory rate was 18 and oxygen saturation was 96%. HEENT: Examination of the head, eyes, ear, nose and throat showed normocephalic, atraumatic. NECK: Supple. HEART: Showed normal first and second heart sounds. No gallop, rub or murmur. CHEST: Clear to auscultation. No crepitation or rhonchi. ABDOMEN: Distended, soft, nontender. NEUROLOGIC: When I saw him, he was awake, alert. Denies any complaint. All his cranial nerves are intact. He moves extremities without difficulty, ambulates without assistance or assistive devices. ASSESSMENT: Seizure disorders due to previous stroke. Apparently, his last seizure was in May 2020. The patient was taken off Keppra and has 2 tonic-clonic seizures during which he bit his tongue and lip. He has multiple medical problems including: A. Hypertension. B. Hyperlipidemia. C. Anxiety and depression. D. He has a hemorrhagic stroke that required left frontal craniotomy. PLAN: To continue obviously with Keppra 500 mg twice a day and to consult Dr. Flores. ADELINE SILVESTRE MD DR: ASCENCION/marco JOB#: [id number] / [id number]
[2020-09-28 16:30] VITALS: BP 110/64
--- NOTE | 2020-09-28 16:49 | NUR ---
Patient has been much more alert today. He has experienced no seizure activity. Patient cooperative, calm and likes to be helpful to staff by holding doors, etc. He has displayed no aggression.
[2020-09-28] MEDS: ATORVASTATIN CALCIUM 20 MG TABLET PO SCH (19:49)
[2020-09-28] MEDS: DIVALPROEX ER 500 MG TAB.ER.24H PO SCH (19:52)
--- NOTE | 2020-09-28 20:42 | PDOC ---
Exam Note: Pasha Note: Please also refer to the separate dictated note~for this date of service dictated separately.~Patient seen individually. Discussed the patient with Nursing staff reviewed the chart.~Reviewed interim history and current functioning. Reviewed vital signs,~Labs/ Radiology~and current medications noted below. Continue current treatment with the changes noted in the dictated addendum note Assessment: Vital Signs/I&O: Vital Signs Date Time Temp Pulse Resp B/P (MAP) Pulse Ox O2 Delivery O2 Flow Rate FiO2 09/28/20 16:30 97.8 65 19 110/64 (79) 95 09/28/20 06:00 Room Air I & O 09/27/20 09/27/20 09/28/20 15:00 23:00 07:00 Intake Total 685 ml 440 ml Balance 685 ml 440 ml Labs: Laboratory Tests Test 09/28/20 08:15 Glucose (Fingerstick) 147 mg/dL (70-99) H Current Medications: Meds: Current Medications Medications (Trade) Dose Ordered Sig/Joseph Route PRN Reason Start Time Stop Time Status Last Admin Dose Admin Levetiracetam (Keppra) 500 mg BID PO 09/27/20 21:00 09/28/20 19:52 I have reviewed the current psychotropics carefully including drug interactions. Risk benefit ratio favors no change other than as noted in my dictated progress note. Diagnosis: Problems: (1) Anxiety disorder, unspecified (2) Impulse control disorder, unspecified (3) Bipolar disorder, curr episode mixed, severe, with psychotic features SHARRI GARCIA MD Sep 28, 2020 20:42
--- NOTE | 2020-09-28 23:13 | NUR ---
Pt withdrawn to room, lying in bed at shift change. Pt calm and pleasant when approached. Pt cooperative with assessment and compliant with medications administered whole. No agitation or aggression noted this evening.
[2020-09-29 05:52] VITALS: BP 117/79
--- NOTE | 2020-09-29 07:06 | PDOC ---
Exam Note: Pasha Note: This note is a late entry for 09/27/2020 covers elements not covered in my initial note. Subjective: The patient was seen face to face in the evening of 09/27/2020 with Alicia OCONNOR. Discussed with nursing staff, reviewed the chart. The patient has had a difficult day on 09/27. He has had two seizure-like episodes. He was given IV Ativan [address] Elizabeth and 500 mg Keppra and restarted back on Keppra 500 mg b.i.d. even though it is therapeutic under Depakote. The patients mother was convinced Keppra was worsening his behaviors. We tried to eliminate it but apparently unsuccessfully. We will defer for neurological management to Dr. Flores. Since the seizure he has been somewhat disorganized, partly due to sedation from Ativan and post-ictal. He slept 5-3/4 hours previous night. Review of Systems: He is hard of hearing. No CV, , pulmonary, eye system symptoms on review. Mental Status Exam: Oriented to himself and at times situation. I met with him in his room. He is not very interactive because of sedation. Speech has expressive aphasia. Abstraction is fair. Computation impaired. Language function is intact. Mood and affect withdrawn. Laboratory Data: Reviewed. Impression: Bipolar disorder mixed with psychotic features. Impulse control disorder. Anxiety disorder unspecified. Expressive aphasia. Mild cognitive impairment. Plan: Stabilize the seizures. Continue rest of the psychotropics from initial note. Adjust as clinically indicated. Assessment: Vital Signs/I&O: Vital Signs Date Time Temp Pulse Resp B/P (MAP) Pulse Ox O2 Delivery O2 Flow Rate FiO2 09/29/20 05:52 97.9 68 18 117/79 (92) 97 Room Air I & O 09/28/20 09/28/20 09/29/20 15:00 23:00 07:00 Intake Total 875 ml 480 ml Balance 875 ml 480 ml Labs: Laboratory Tests Test 09/28/20 08:15 Glucose (Fingerstick) 147 mg/dL (70-99) H Current Medications: I have reviewed the current psychotropics carefully including drug interactions. Risk benefit ratio favors no change other than as noted in my dictated progress note. Diagnosis: Problems: (1) Bipolar affective disorder, mixed (2) Anxiety disorder, unspecified (3) Impulse control disorder, unspecified (4) Bipolar disorder, curr episode mixed, severe, with psychotic features SHARRI GARCIA MD Sep 29, 2020 07:06
[2020-09-29] MEDS: EMPAGLIFLOZIN 10 MG TABLET. PO SCH (09:00)
[2020-09-29] MEDS: TAMSULOSIN 0.4 MG CAP.ER.24H. PO SCH (09:09)
[2020-09-29] MEDS: glipiZIDE 5 MG TABLET PO SCH ×3 (09:09→19:25)
[2020-09-29] MEDS: levETIRAcetam 500 MG TABLET PO SCH ×2 (09:09→19:25)
[2020-09-29] MEDS: metFORMIN 500 MG TABLET PO SCH (09:09)
[2020-09-29] MEDS: LACTOBACILLUS RHAMNOSUS GG 1 CAPSULE. PO SCH ×2 (09:09→19:25)
[2020-09-29] MEDS: ARIPiprazole 5 MG TABLET PO SCH (09:09)
[2020-09-29] MEDS: ASPIRIN CHEWABLE 81 MG TABLET. PO SCH (09:09)
[2020-09-29] MEDS: PYRIDOXINE 50 MG TABLET. PO SCH (09:10)
[2020-09-29] MEDS: CHOLECALCIFEROL (VITAMIN D3) 50,000 UNIT CAPSULE PO SCH (09:10)
--- NOTE | 2020-09-29 09:44 | NUR ---
Patient is pleasant and calm. He walks in the hallway several times per day for exercise. He is compliant with wearing his mask when out of his room and is cooperative. Patient follows directions and is compliant with medications. Nurse brought patient todays [place] [employer] as he enjoys reading it each morning. Patient also spends time working on things on his personal tablet. He has had not aggressive or agitated behaviors this day.
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
--- NOTE | 2020-09-29 14:23 | NUR ---
SW provided update to pt DPOA/mother. Discussed the two seizures r/t stopping the Keppra, so have restarted it at 500mg BID. Discussed psychological testing recommendations, any possible resources through the [facility] to include vocational rehabilitation, BS readings, and d/c date being moved to 10/07/20 d/t seizure activity. Mother appreciative of call.
[2020-09-29 16:23] VITALS: BP 118/71
[2020-09-29] MEDS: ATORVASTATIN CALCIUM 20 MG TABLET PO SCH (19:25)
[2020-09-29] MEDS: DIVALPROEX ER 500 MG TAB.ER.24H PO SCH (19:25)
--- NOTE | 2020-09-29 20:41 | PDOC ---
Exam Note: Pasha Note: Please also refer to the separate dictated note~for this date of service dictated separately.~Patient seen individually. Discussed the patient with Nursing staff reviewed the chart.~Reviewed interim history and current functioning. Reviewed vital signs,~Labs/ Radiology~and current medications noted below. Continue current treatment with the changes noted in the dictated addendum note Assessment: Vital Signs/I&O: Vital Signs Date Time Temp Pulse Resp B/P (MAP) Pulse Ox O2 Delivery O2 Flow Rate FiO2 09/29/20 16:23 98.7 61 18 118/71 (87) 96 09/29/20 05:52 Room Air I & O 09/28/20 09/28/20 09/29/20 15:00 23:00 07:00 Intake Total 875 ml 480 ml Balance 875 ml 480 ml Labs: Laboratory Tests Test 09/29/20 07:58 Glucose (Fingerstick) 208 mg/dL (70-99) H Current Medications: I have reviewed the current psychotropics carefully including drug interactions. Risk benefit ratio favors no change other than as noted in my dictated progress note. Diagnosis: Problems: (1) Anxiety disorder, unspecified (2) Impulse control disorder, unspecified (3) Bipolar disorder, curr episode mixed, severe, with psychotic features SHARRI GARCIA MD Sep 29, 2020 20:41
--- NOTE | 2020-09-29 21:04 | NUR ---
Pt walking in hallway at shift change. Pt calm, pleasant, interactive and social. Pt cooperative with assessment and compliant with medications administered whole. No agitation or aggression noted this shift.
[2020-09-30 05:48] VITALS: BP 129/75
[2020-09-30] MEDS: ASPIRIN CHEWABLE 81 MG TABLET. PO SCH (08:14)
[2020-09-30] MEDS: TAMSULOSIN 0.4 MG CAP.ER.24H. PO SCH (08:14)
[2020-09-30] MEDS: ARIPiprazole 5 MG TABLET PO SCH (08:14)
[2020-09-30] MEDS: LACTOBACILLUS RHAMNOSUS GG 1 CAPSULE. PO SCH ×2 (08:14→20:36)
[2020-09-30] MEDS: levETIRAcetam 500 MG TABLET PO SCH ×2 (08:14→20:35)
[2020-09-30] MEDS: glipiZIDE 5 MG TABLET PO SCH ×3 (08:14→20:36)
[2020-09-30] MEDS: metFORMIN 500 MG TABLET PO SCH (08:14)
[2020-09-30] MEDS: PYRIDOXINE 50 MG TABLET. PO SCH (08:15)
[2020-09-30] MEDS: EMPAGLIFLOZIN 10 MG TABLET. PO SCH (08:16)
--- NOTE | 2020-09-30 08:38 | PDOC ---
Exam Note: Pasha Note: This note is a late entry for 09/28/2020 covers elements not covered in my initial note. Subjective: The patient was seen face to face in the evening of 09/28/2020 with Alicia OCONNOR. Discussed with nursing staff, reviewed the chart. He slept 6 hours previous night. The patient has been reading the newspaper, seems to be slowly getting back to normal after the seizure activity. No further seizure noted on 09/28. Review of Systems: He is hard of hearing. No CV, , pulmonary, eye system symptoms on review. Mental Status Exam: The patient is alert, awake, and oriented to himself and situation. Speech has receptive language skills better than expressive. Abstraction is fair. Computation impaired. Language function is intact. Attention span is improved. No suicidal or homicidal ideation. He has not been aggressive. Laboratory Data: Reviewed. Impression: Bipolar disorder mixed with psychotic features. Impulse control disorder. Anxiety disorder unspecified. Expressive aphasia. Mild cognitive impairment. Plan: No change from initial note. We will continue to adjust his Luvox for the OCD and Abilify as atypical antipsychotic. Maintain Depakote and he is back on the Keppra which has been increased to 500 mg b.i.d. Assessment: Vital Signs/I&O: Vital Signs Date Time Temp Pulse Resp B/P (MAP) Pulse Ox O2 Delivery O2 Flow Rate FiO2 09/30/20 05:48 97.6 57 16 129/75 (93) 96 Room Air I & O 09/29/20 09/29/20 09/30/20 14:59 22:59 06:59 Intake Total 1080 ml 580 ml Balance 1080 ml 580 ml Labs: Laboratory Tests Test 09/30/20 07:31 Glucose (Fingerstick) 128 mg/dL (70-99) H Current Medications: I have reviewed the current psychotropics carefully including drug interactions. Risk benefit ratio favors no change other than as noted in my dictated progress note. Diagnosis: Problems: (1) Bipolar affective disorder, mixed (2) Anxiety disorder, unspecified (3) Impulse control disorder, unspecified (4) Bipolar disorder, curr episode mixed, severe, with psychotic features SHARRI GARCIA MD Sep 30, 2020 08:38
--- NOTE | 2020-09-30 08:39 | PDOC ---
Exam Note: Pasha Note: This note is a late entry for 09/29/2020 covers elements not covered in my initial note. Subjective: The patient was reviewed on telehealth rounds in the morning of 09/29/2020 for treatment team meeting with Steven (social services assistant), Sandi, activity therapy, and Alicia OCONNOR, because there was a patient who turned up positive for Covid-19 infection on the unit and the unit has been closed by the [facility] Department for any admissions or discharges once again. Discussed with nursing staff, reviewed the chart. The patient has been more oriented, less confused, since his seizure has not recurred in a couple of days. He has been using his mask, ambulating around the unit. No agitation. He tends to want to help the other patients around the unit but given the COVID restrictions. Staff have encouraged him not to do so and he is complied. Review of Systems: He is hard of hearing. No CV, , pulmonary, eye system symptoms on review. Mental Status Exam: Oriented to himself and at times situation. He is verbal, interactive as I met with him in the evening. Speech has expressive aphasia. Abstraction is fair. Computation impaired. Language function is intact. Mood and affect withdrawn. No suicidal or homicidal ideation. Laboratory Data: Reviewed. Impression: Bipolar disorder mixed with psychotic features. Impulse control disorder. Anxiety disorder unspecified. Expressive aphasia. Mild cognitive impairment. Plan: For now we will continue his current psychotropics but may need to increase Luvox for OCD symptoms. Assessment: Vital Signs/I&O: Vital Signs Date Time Temp Pulse Resp B/P (MAP) Pulse Ox O2 Delivery O2 Flow Rate FiO2 09/30/20 05:48 97.6 57 16 129/75 (93) 96 Room Air I & O 09/29/20 09/29/20 09/30/20 14:59 22:59 06:59 Intake Total 1080 ml 580 ml Balance 1080 ml 580 ml Labs: Laboratory Tests Test 09/30/20 07:31 Glucose (Fingerstick) 128 mg/dL (70-99) H Current Medications: I have reviewed the current psychotropics carefully including drug interactions. Risk benefit ratio favors no change other than as noted in my dictated progress note. Diagnosis: Problems: (1) Bipolar affective disorder, mixed (2) Anxiety disorder, unspecified (3) Impulse control disorder, unspecified (4) Bipolar disorder, curr episode mixed, severe, with psychotic features SHARRI GARCIA MD Sep 30, 2020 08:39
--- NOTE | 2020-09-30 14:29 | NUR ---
SW provided pt with letters, words, numbers, and shapes to trace along with a couple of worksheets for matching things. Pt agreeable to work on these over the weekend and SW to follow back up with pt on Saturday. SW emphasized to pt that if he needed help, he should ask for it. Pt stated he understood.
[2020-09-30 15:45] VITALS: BP 130/80
--- NOTE | 2020-09-30 17:50 | NUR ---
Patient calm, compliant, and cooperative. He spent time walking in the halls for exercise, and was wanting to assist passing out and picking up meal trays. Will continue to monitor and report to oncoming shift
[2020-09-30] MEDS: DIVALPROEX ER 500 MG TAB.ER.24H PO SCH (20:35)
[2020-09-30] MEDS: ATORVASTATIN CALCIUM 20 MG TABLET PO SCH (20:36)
--- NOTE | 2020-09-30 20:52 | PDOC ---
Exam Note: Pasha Note: Please also refer to the separate dictated note~for this date of service dictated separately.~Patient seen individually. Discussed the patient with Nursing staff reviewed the chart.~Reviewed interim history and current functioning. Reviewed vital signs,~Labs/ Radiology~and current medications noted below. Continue current treatment with the changes noted in the dictated addendum note Assessment: Vital Signs/I&O: Vital Signs Date Time Temp Pulse Resp B/P (MAP) Pulse Ox O2 Delivery O2 Flow Rate FiO2 09/30/20 15:45 98.0 64 20 130/80 (97) 99 Room Air I & O 09/29/20 09/29/20 09/30/20 15:00 23:00 07:00 Intake Total 1080 ml 580 ml Balance 1080 ml 580 ml Labs: Laboratory Tests Test 09/30/20 07:31 Glucose (Fingerstick) 128 mg/dL (70-99) H Current Medications: I have reviewed the current psychotropics carefully including drug interactions. Risk benefit ratio favors no change other than as noted in my dictated progress note. Diagnosis: Problems: (1) Bipolar affective disorder, mixed (2) Anxiety disorder, unspecified (3) Impulse control disorder, unspecified (4) Bipolar disorder, curr episode mixed, severe, with psychotic features SHARRI GARCIA MD Sep 30, 2020 20:52
--- NOTE | 2020-09-30 22:43 | NUR ---
Patient is located in his room on assumption of care. He is in pleasant spirits, interactive and appropriate. Compliant with assessments and medications taken whole. Cooperative with shower. No agitation. Denies any pain or discomfort. No seizure activity noted so far this shift. Patient appears to be sleeping comfortably at present time. Will continue to monitor.
[2020-10-01 06:00] VITALS: BP 112/70
[2020-10-01] MEDS: ARIPiprazole 5 MG TABLET PO SCH (08:54)
[2020-10-01] MEDS: LACTOBACILLUS RHAMNOSUS GG 1 CAPSULE. PO SCH ×2 (08:54→20:11)
[2020-10-01] MEDS: metFORMIN 500 MG TABLET PO SCH (08:54)
[2020-10-01] MEDS: TAMSULOSIN 0.4 MG CAP.ER.24H. PO SCH (08:54)
[2020-10-01] MEDS: ASPIRIN CHEWABLE 81 MG TABLET. PO SCH (08:54)
[2020-10-01] MEDS: EMPAGLIFLOZIN 10 MG TABLET. PO SCH (08:55)
[2020-10-01] MEDS: PYRIDOXINE 50 MG TABLET. PO SCH (08:55)
[2020-10-01] MEDS: levETIRAcetam 500 MG TABLET PO SCH ×2 (08:55→20:13)
[2020-10-01] MEDS: glipiZIDE 5 MG TABLET PO SCH ×3 (08:55→20:11)
--- NOTE | 2020-10-01 11:00 | NUR ---
Pt is calm, cooperative, and compliant. No agitation, no aggression, no hallucinations, no delusions. He is compliant with his medication and assessment.
[2020-10-01 13:34] LABS: BASO % 1 % (0-3); EOS # 0.1 x10^3/uL (0.0-0.7); EOS % 1 % (0-3); HEMATOCRIT 41.9 % (39.0-53.0); HEMOGLOBIN 13.4 g/dL (13.0-17.5); LYMPH # 1.5 x10^3/uL (1.0-4.8); LYMPH % 22 % (24-48); MEAN CORPUSCULAR HEMOGLOBIN 29 pg (25-35); MEAN CORPUSCULAR HGB CONC 32 g/dL (31-37); MEAN CORPUSCULAR VOLUME 90 fL (79-100); MONO # 0.6 x10^3/uL (0.0-1.1); MONO % 9 % (0-9); NEUT # 4.6 x10^3uL (1.8-7.7); NEUT % 68 % (31-73); PLATELET COUNT 170 x10^3/uL (140-400); RED BLOOD COUNT 4.64 x10^6/uL (4.30-5.70); RED CELL DISTRIBUTION WIDTH 13.8 % (11.5-14.5); WHITE BLOOD COUNT 6.7 x10^3/uL (4.0-11.0)
[2020-10-01 13:55] LABS: ALBUMIN 3.2 g/dL (3.4-5.0); ALBUMIN/GLOBULIN RATIO 0.9 (1.0-1.7); CALCIUM 9.1 mg/dL (8.5-10.1); CREATININE 1.3 mg/dL (0.7-1.3); GFR 57.3; POTASSIUM 4.2 mmol/L (3.5-5.1); TOTAL BILIRUBIN 0.2 mg/dL (0.2-1.0); TOTAL PROTEIN 6.6 g/dL (6.4-8.2)
[2020-10-01 15:00] VITALS: BP 102/66
[2020-10-01] MEDS: ATORVASTATIN CALCIUM 20 MG TABLET PO SCH (20:12)
[2020-10-01] MEDS: DIVALPROEX ER 500 MG TAB.ER.24H PO SCH (20:13)
--- NOTE | 2020-10-01 21:00 | PDOC ---
Exam Note: Pasha Note: Please also refer to the separate dictated note~for this date of service dictated separately.~Patient seen individually. Discussed the patient with Nursing staff reviewed the chart.~Reviewed interim history and current functioning. Reviewed vital signs,~Labs/ Radiology~and current medications noted below. Continue current treatment with the changes noted in the dictated addendum note Assessment: Vital Signs/I&O: Vital Signs Date Time Temp Pulse Resp B/P (MAP) Pulse Ox O2 Delivery O2 Flow Rate FiO2 10/01/20 15:00 98.2 76 20 102/66 (78) 97 Room Air I & O 09/30/20 09/30/20 10/01/20 15:00 23:00 07:00 Intake Total 840 ml 480 ml Balance 840 ml 480 ml Labs: Laboratory Tests Test 10/01/20 07:44 10/01/20 13:24 Glucose (Fingerstick) 114 mg/dL (70-99) H White Blood Count 6.7 x10^3/uL (4.0-11.0) Red Blood Count 4.64 x10^6/uL (4.30-5.70) Hemoglobin 13.4 g/dL (13.0-17.5) Hematocrit 41.9 % (39.0-53.0) Mean Corpuscular Volume 90 fL (79-100) Mean Corpuscular Hemoglobin 29 pg (25-35) Mean Corpuscular Hemoglobin Concent 32 g/dL (31-37) Red Cell Distribution Width 13.8 % (11.5-14.5) Platelet Count 170 x10^3/uL (140-400) Neutrophils (%) (Auto) 68 % (31-73) Lymphocytes (%) (Auto) 22 % (24-48) L Monocytes (%) (Auto) 9 % (0-9) Eosinophils (%) (Auto) 1 % (0-3) Basophils (%) (Auto) 1 % (0-3) Neutrophils # (Auto) 4.6 x10^3uL (1.8-7.7) Lymphocytes # (Auto) 1.5 x10^3/uL (1.0-4.8) Monocytes # (Auto) 0.6 x10^3/uL (0.0-1.1) Eosinophils # (Auto) 0.1 x10^3/uL (0.0-0.7) Basophils # (Auto) 0.0 x10^3/uL (0.0-0.2) Sodium Level 139 mmol/L (136-145) Potassium Level 4.2 mmol/L (3.5-5.1) Chloride Level 102 mmol/L (98-107) Carbon Dioxide Level 29 mmol/L (21-32) Anion Gap 8 (6-14) Blood Urea Nitrogen 16 mg/dL (8-26) Creatinine 1.3 mg/dL (0.7-1.3) Estimated GFR (Cockcroft-Gault) 57.3 BUN/Creatinine Ratio 12 (6-20) Glucose Level 220 mg/dL (70-99) H Calcium Level 9.1 mg/dL (8.5-10.1) Total Bilirubin 0.2 mg/dL (0.2-1.0) Aspartate Amino Transferase (AST) 22 U/L (15-37) Alanine Aminotransferase (ALT) 40 U/L (16-63) Alkaline Phosphatase 70 U/L (46-116) Total Protein 6.6 g/dL (6.4-8.2) Albumin 3.2 g/dL (3.4-5.0) L Albumin/Globulin Ratio 0.9 (1.0-1.7) L Current Medications: I have reviewed the current psychotropics carefully including drug interactions. Risk benefit ratio favors no change other than as noted in my dictated progress note. Diagnosis: Problems: (1) Anxiety disorder, unspecified (2) Impulse control disorder, unspecified (3) Bipolar disorder, curr episode mixed, severe, with psychotic features SHARRI GARCIA MD Oct 01, 2020 21:00
--- NOTE | 2020-10-01 23:25 | NUR ---
Patient is located in his room on assumption of care. He is in pleasant spirits, interactive and appropriate. Compliant with assessments and medications taken whole. No agitation. Denies any pain or discomfort. No seizure activity noted so far this shift. Patient appears to be sleeping comfortably at present time. Will continue to monitor.
[2020-10-02 05:41] VITALS: BP 103/68
[2020-10-02] MEDS: PYRIDOXINE 50 MG TABLET. PO SCH (08:25)
[2020-10-02] MEDS: TAMSULOSIN 0.4 MG CAP.ER.24H. PO SCH (08:25)
[2020-10-02] MEDS: ASPIRIN CHEWABLE 81 MG TABLET. PO SCH (08:25)
[2020-10-02] MEDS: metFORMIN 500 MG TABLET PO SCH (08:25)
[2020-10-02] MEDS: LACTOBACILLUS RHAMNOSUS GG 1 CAPSULE. PO SCH ×2 (08:25→20:57)
[2020-10-02] MEDS: EMPAGLIFLOZIN 10 MG TABLET. PO SCH (08:25)
[2020-10-02] MEDS: ARIPiprazole 5 MG TABLET PO SCH (08:25)
[2020-10-02] MEDS: glipiZIDE 5 MG TABLET PO SCH ×3 (08:25→20:57)
[2020-10-02] MEDS: levETIRAcetam 500 MG TABLET PO SCH ×2 (08:26→20:57)
--- NOTE | 2020-10-02 10:54 | NUR ---
He is compliant with his medication and assessment. Pt is calm, cooperative, and compliant. No agitation, no aggression, no hallucinations, no delusions.
[2020-10-02 16:13] VITALS: BP 95/63
--- NOTE | 2020-10-02 20:51 | PDOC ---
Exam Note: Pasha Note: This note is a late entry for 09/30/2020 covers elements not covered in my initial note. Subjective: The patient was reviewed on telehealth rounds in the evening of 09/30/2020 with Jere OCONNOR. Discussed with nursing staff, reviewed the chart. He slept 7-3/4 hours previous night. He did well previous night and during the day, somewhat calmer, less anxious, tries to be helpful and I addressed this with him so that he is not intrusive with others. I have reviewed psychological testing with Ryan indicating that the patient would benefit from professional services at home with a nurse or an aid rather than entirely by his mother and that the relationship with his mother and sister may be impacting some of his behaviors. This report will be made part of the patients records and on verbal comprehension. He was extremely low, perceptual reasoning borderline and full-scale IQ extremely low. Review of Systems: He is hard of hearing. No CV, , pulmonary, eye system symptoms on review. Mental Status Exam: Oriented to himself and at times situation. He is fairly pleasant, somewhat distractible, does have expressive language skill problems. Speech has expressive aphasia. Abstraction is fair. Computation impaired. Language function is intact. Mood and affect withdrawn. No suicidal or homicidal ideation. Laboratory Data: Reviewed. Impression: Bipolar disorder mixed with psychotic features. Impulse control disorder. Anxiety disorder unspecified. Expressive aphasia. Mild cognitive impairment. Plan: No change from initial note. Assessment: Vital Signs/I&O: Vital Signs Date Time Temp Pulse Resp B/P (MAP) Pulse Ox O2 Delivery O2 Flow Rate FiO2 10/02/20 16:13 97.8 79 18 95/63 (74) 96 10/01/20 15:00 Room Air I & O 10/01/20 10/01/20 10/02/20 15:00 23:00 07:00 Intake Total 360 ml 240 ml Balance 360 ml 240 ml Labs: Laboratory Tests Test 10/02/20 08:04 Glucose (Fingerstick) 147 mg/dL (70-99) H Current Medications: I have reviewed the current psychotropics carefully including drug interactions. Risk benefit ratio favors no change other than as noted in my dictated progress note. Diagnosis: Problems: (1) Bipolar affective disorder, mixed (2) Anxiety disorder, unspecified (3) Impulse control disorder, unspecified (4) Bipolar disorder, curr episode mixed, severe, with psychotic features SHARRI GARCIA MD Oct 02, 2020 20:51
[2020-10-02] MEDS: DIVALPROEX ER 500 MG TAB.ER.24H PO SCH (20:57)
[2020-10-02] MEDS: ATORVASTATIN CALCIUM 20 MG TABLET PO SCH (20:57)
--- NOTE | 2020-10-02 21:07 | PDOC ---
Exam Note: Pasha Note: This note is a late entry for 10/01/2020 covers elements not covered in my initial note. Subjective: The patient was reviewed on telehealth rounds in the evening of 10/01/2020 with Deisy OCONNOR. Discussed with nursing staff, reviewed the chart. He slept 7-1/4 hours previous night. Review of Systems: He is hard of hearing. No CV, , pulmonary, eye system symptoms on review. Mental Status Exam: Oriented to himself and at times situation. He is pleasant, cooperative, verbal. Speech has expressive aphasia. Abstraction is fair. Computation impaired. Language function is intact. Mood and affect withdrawn. No suicidal or homicidal ideation. Laboratory Data: Reviewed. Impression: Bipolar disorder mixed with psychotic features. Impulse control disorder. Anxiety disorder unspecified. Expressive aphasia. Mild cognitive impairment. Plan: No change from initial note. Assessment: Vital Signs/I&O: Vital Signs Date Time Temp Pulse Resp B/P (MAP) Pulse Ox O2 Delivery O2 Flow Rate FiO2 10/02/20 16:13 97.8 79 18 95/63 (74) 96 10/01/20 15:00 Room Air I & O 10/01/20 10/01/20 10/02/20 14:59 22:59 06:59 Intake Total 360 ml 240 ml Balance 360 ml 240 ml Labs: Laboratory Tests Test 10/02/20 08:04 Glucose (Fingerstick) 147 mg/dL (70-99) H Current Medications: I have reviewed the current psychotropics carefully including drug interactions. Risk benefit ratio favors no change other than as noted in my dictated progress note. Diagnosis: Problems: (1) Bipolar affective disorder, mixed (2) Anxiety disorder, unspecified (3) Impulse control disorder, unspecified (4) Bipolar disorder, curr episode mixed, severe, with psychotic features SHARRI GARCIA MD Oct 02, 2020 21:07
--- NOTE | 2020-10-02 21:21 | PDOC ---
Exam Note: Pasha Note: Please also refer to the separate dictated note~for this date of service dictated separately.~Patient seen individually. Discussed the patient with Nursing staff reviewed the chart.~Reviewed interim history and current functioning. Reviewed vital signs,~Labs/ Radiology~and current medications noted below. Continue current treatment with the changes noted in the dictated addendum note Assessment: Vital Signs/I&O: Vital Signs Date Time Temp Pulse Resp B/P (MAP) Pulse Ox O2 Delivery O2 Flow Rate FiO2 10/02/20 16:13 97.8 79 18 95/63 (74) 96 10/01/20 15:00 Room Air I & O 10/01/20 10/01/20 10/02/20 15:00 23:00 07:00 Intake Total 360 ml 240 ml Balance 360 ml 240 ml Labs: Laboratory Tests Test 10/02/20 08:04 Glucose (Fingerstick) 147 mg/dL (70-99) H Current Medications: I have reviewed the current psychotropics carefully including drug interactions. Risk benefit ratio favors no change other than as noted in my dictated progress note. Diagnosis: Problems: (1) Bipolar affective disorder, mixed (2) Anxiety disorder, unspecified (3) Impulse control disorder, unspecified (4) Bipolar disorder, curr episode mixed, severe, with psychotic features SHARRI GARCIA MD Oct 02, 2020 21:21
--- NOTE | 2020-10-02 23:38 | NUR ---
Patient is located in his room on assumption of care. He is in pleasant spirits, interactive and appropriate. Compliant with assessments and medications taken whole. Cooperative with COVID-19 swab. No agitation. Denies any pain or discomfort. No seizure activity noted so far this shift. Patient appears to be sleeping comfortably at present time. Will continue to monitor.
[2020-10-03 06:02] VITALS: BP 103/66
[2020-10-03] MEDS: ASPIRIN CHEWABLE 81 MG TABLET. PO SCH (08:51)
[2020-10-03] MEDS: TAMSULOSIN 0.4 MG CAP.ER.24H. PO SCH (08:51)
[2020-10-03] MEDS: LACTOBACILLUS RHAMNOSUS GG 1 CAPSULE. PO SCH ×2 (08:51→20:08)
[2020-10-03] MEDS: ARIPiprazole 5 MG TABLET PO SCH (08:51)
[2020-10-03] MEDS: glipiZIDE 5 MG TABLET PO SCH ×3 (08:51→20:08)
[2020-10-03] MEDS: metFORMIN 500 MG TABLET PO SCH (08:51)
[2020-10-03] MEDS: EMPAGLIFLOZIN 10 MG TABLET. PO SCH (08:52)
[2020-10-03] MEDS: PYRIDOXINE 50 MG TABLET. PO SCH (08:52)
[2020-10-03] MEDS: levETIRAcetam 500 MG TABLET PO SCH ×2 (08:52→20:09)
--- NOTE | 2020-10-03 09:54 | NUR ---
Pt is calm, cooperative, and compliant. No agitation, no aggression, no hallucinations, no delusions. He is compliant with his medication and assessment.
[2020-10-03 15:57] VITALS: BP 124/78
[2020-10-03] MEDS: ATORVASTATIN CALCIUM 20 MG TABLET PO SCH (20:09)
[2020-10-03] MEDS: DIVALPROEX ER 500 MG TAB.ER.24H PO SCH (20:09)
--- NOTE | 2020-10-03 20:43 | PDOC ---
Exam Note: Pasha Note: Please also refer to the separate dictated note~for this date of service dictated separately.~Patient seen individually. Discussed the patient with Nursing staff reviewed the chart.~Reviewed interim history and current functioning. Reviewed vital signs,~Labs/ Radiology~and current medications noted below. Continue current treatment with the changes noted in the dictated addendum note Assessment: Vital Signs/I&O: Vital Signs Date Time Temp Pulse Resp B/P (MAP) Pulse Ox O2 Delivery O2 Flow Rate FiO2 10/03/20 15:57 97.0 76 16 124/78 (93) 97 10/01/20 15:00 Room Air I & O 10/02/20 10/02/20 10/03/20 15:00 23:00 07:00 Intake Total 960 ml 480 ml Balance 960 ml 480 ml Labs: Laboratory Tests Test 10/03/20 07:34 Glucose (Fingerstick) 135 mg/dL (70-99) H Current Medications: I have reviewed the current psychotropics carefully including drug interactions. Risk benefit ratio favors no change other than as noted in my dictated progress note. Diagnosis: Problems: (1) Anxiety disorder, unspecified (2) Impulse control disorder, unspecified (3) Bipolar disorder, curr episode mixed, severe, with psychotic features SHARRI GARCIA MD Oct 03, 2020 20:43
--- NOTE | 2020-10-04 02:59 | NUR ---
Pt took meds whole and was pleasant and cooperative. He went to bed early and has been sleeping well, no behaviors tonight.
[2020-10-04 06:19] VITALS: BP 100/64
--- NOTE | 2020-10-04 07:44 | PDOC ---
Exam Note: Pasha Note: This note is a late entry for 10/02/2020 covers elements not covered in my initial note. Subjective: The patient was reviewed on telehealth rounds in the evening of 10/02/2020 with Abdirahman OCONNOR. Discussed with Deisy OCONNOR, reviewed the chart. He slept 8-1/4 hours previous night. He has been helpful around the unit. No further seizure activity noted. He gets slightly, easily frustrated but only briefly. I have reviewed the neuropsychological testing completed by the neurologist that an objective external patient observation assistant help in the home which might reduce the mothers interaction with the patient and patients negative reactivity to family members providing cares for him. Review of Systems: He is hard of hearing. No CV, , pulmonary, eye system symptoms on review. Mental Status Exam: Oriented to himself. He is pleasant, cooperative, verbal. Speech has expressive aphasia. Abstraction is fair. Computation impaired. Language function is intact. Mood and affect withdrawn. No suicidal or homicidal ideation. Laboratory Data: Reviewed. Impression: Bipolar disorder mixed with psychotic features. Impulse control disorder. Anxiety disorder unspecified. Expressive aphasia. Mild cognitive impairment. Plan: No change from initial note. Assessment: Vital Signs/I&O: Vital Signs Date Time Temp Pulse Resp B/P (MAP) Pulse Ox O2 Delivery O2 Flow Rate FiO2 10/04/20 06:19 97.6 66 18 100/64 (76) 97 10/01/20 15:00 Room Air I & O 10/03/20 10/03/20 10/04/20 15:00 23:00 07:00 Intake Total 960 ml 720 ml Balance 960 ml 720 ml Current Medications: I have reviewed the current psychotropics carefully including drug interactions. Risk benefit ratio favors no change other than as noted in my dictated progress note. Diagnosis: Problems: (1) Bipolar affective disorder, mixed (2) Anxiety disorder, unspecified (3) Impulse control disorder, unspecified (4) Bipolar disorder, curr episode mixed, severe, with psychotic features SHARRI GARCIA MD Oct 04, 2020 07:44
--- NOTE | 2020-10-04 08:01 | PDOC ---
Exam Note: Pasha Note: This note is a late entry for 10/03/2020 covers elements not covered in my initial note. Subjective: The patient was seen face to face in the evening of 10/03/2020 with Deisy OCONNOR. Discussed with nursing staff, reviewed the chart. He slept 7-1/4 hours previous night. He has been quite appropriate on the unit, helpful, at times little anxious. Review of Systems: No CV, , pulmonary, eye system symptoms on review. Mental Status Exam: Oriented to himself and at times situation. The patient does have expressive aphasia, receptive is better. Speech is coherent. Abstraction is fair. Computation impaired. Language function is intact. Mood and affect withdrawn. No suicidal or homicidal ideation. Laboratory Data: Reviewed. Impression: Bipolar disorder mixed with psychotic features. Impulse control disorder. Anxiety disorder unspecified. Expressive aphasia. Mild cognitive impairment. Plan: No change from initial note. Assessment: Vital Signs/I&O: Vital Signs Date Time Temp Pulse Resp B/P (MAP) Pulse Ox O2 Delivery O2 Flow Rate FiO2 10/04/20 06:19 97.6 66 18 100/64 (76) 97 10/01/20 15:00 Room Air I & O 10/03/20 10/03/20 10/04/20 15:00 23:00 07:00 Intake Total 960 ml 720 ml Balance 960 ml 720 ml Labs: Laboratory Tests Test 10/04/20 07:37 Glucose (Fingerstick) 131 mg/dL (70-99) H Current Medications: I have reviewed the current psychotropics carefully including drug interactions. Risk benefit ratio favors no change other than as noted in my dictated progress note. Diagnosis: Problems: (1) Bipolar affective disorder, mixed (2) Anxiety disorder, unspecified (3) Impulse control disorder, unspecified (4) Bipolar disorder, curr episode mixed, severe, with psychotic features SHARRI GARCIA MD Oct 04, 2020 08:01
[2020-10-04] MEDS: TAMSULOSIN 0.4 MG CAP.ER.24H. PO SCH (09:05)
[2020-10-04] MEDS: ARIPiprazole 5 MG TABLET PO SCH (09:05)
[2020-10-04] MEDS: LACTOBACILLUS RHAMNOSUS GG 1 CAPSULE. PO SCH ×2 (09:05→20:12)
[2020-10-04] MEDS: PYRIDOXINE 50 MG TABLET. PO SCH (09:06)
[2020-10-04] MEDS: ASPIRIN CHEWABLE 81 MG TABLET. PO SCH (09:06)
[2020-10-04] MEDS: metFORMIN 500 MG TABLET PO SCH (09:06)
[2020-10-04] MEDS: EMPAGLIFLOZIN 10 MG TABLET. PO SCH (09:06)
[2020-10-04] MEDS: glipiZIDE 5 MG TABLET PO SCH ×3 (09:06→20:12)
[2020-10-04] MEDS: levETIRAcetam 500 MG TABLET PO SCH ×2 (09:06→20:11)
[2020-10-04 15:35] VITALS: BP 130/75
--- NOTE | 2020-10-04 16:32 | NUR ---
Patient calm, compliant, and cooperative. He spent time walking in the halls for exercise, and was social with staff and peers. Patient did display mild frustration with expressive aphasia. Will continue to monitor and report to oncoming shift
[2020-10-04] MEDS: ATORVASTATIN CALCIUM 20 MG TABLET PO SCH (20:11)
[2020-10-04] MEDS: DIVALPROEX ER 500 MG TAB.ER.24H PO SCH (20:12)
--- NOTE | 2020-10-04 20:57 | PDOC ---
Exam Note: Pasha Note: Please also refer to the separate dictated note~for this date of service dictated separately.~Patient seen individually. Discussed the patient with Nursing staff reviewed the chart.~Reviewed interim history and current functioning. Reviewed vital signs,~Labs/ Radiology~and current medications noted below. Continue current treatment with the changes noted in the dictated addendum note Assessment: Vital Signs/I&O: Vital Signs Date Time Temp Pulse Resp B/P (MAP) Pulse Ox O2 Delivery O2 Flow Rate FiO2 10/04/20 15:35 97.6 18 18 130/75 (93) 98 10/01/20 15:00 Room Air I & O 10/03/20 10/03/20 10/04/20 15:00 23:00 07:00 Intake Total 960 ml 720 ml Balance 960 ml 720 ml Labs: Laboratory Tests Test 10/04/20 07:37 Glucose (Fingerstick) 131 mg/dL (70-99) H Current Medications: I have reviewed the current psychotropics carefully including drug interactions. Risk benefit ratio favors no change other than as noted in my dictated progress note. Diagnosis: Problems: (1) Bipolar affective disorder, mixed (2) Anxiety disorder, unspecified (3) Impulse control disorder, unspecified (4) Bipolar disorder, curr episode mixed, severe, with psychotic features SHARRI GARCIA MD Oct 04, 2020 20:57
--- NOTE | 2020-10-05 02:02 | NUR ---
Pt spent time in his room before going to bed. He was pleasant and social with staff took his meds whole and has had no behaviors tonight.
[2020-10-05 06:31] VITALS: BP 121/83
[2020-10-05] MEDS: levETIRAcetam 500 MG TABLET PO SCH ×2 (07:47→20:10)
[2020-10-05] MEDS: ARIPiprazole 5 MG TABLET PO SCH (07:47)
[2020-10-05] MEDS: ASPIRIN CHEWABLE 81 MG TABLET. PO SCH (07:47)
[2020-10-05] MEDS: glipiZIDE 5 MG TABLET PO SCH ×3 (07:48→20:10)
[2020-10-05] MEDS: LACTOBACILLUS RHAMNOSUS GG 1 CAPSULE. PO SCH ×2 (07:48→20:13)
[2020-10-05] MEDS: metFORMIN 500 MG TABLET PO SCH (07:48)
[2020-10-05] MEDS: TAMSULOSIN 0.4 MG CAP.ER.24H. PO SCH (07:48)
[2020-10-05] MEDS: EMPAGLIFLOZIN 10 MG TABLET. PO SCH (07:53)
[2020-10-05] MEDS: PYRIDOXINE 50 MG TABLET. PO SCH (07:53)
--- NOTE | 2020-10-05 08:25 | NUR ---
Patient alert and oriented with no complaints. Patient takes medications good whole with water. Patient is anxious to go home this week. We will confirm at treatment team when that will be. No further concerns at this time.
[2020-10-05 15:20] VITALS: BP 130/69
--- NOTE | 2020-10-05 16:28 | NUR ---
JOHN spoke with [facility] to schedule a f/u appointment. JONH then spoke with OT and Speech therapy dept. It was explained that for occupational therapy, pt will need a new consult from his PCP to restart that service. Pt already has speech appt scheduled for 10/11/20. JOHN, also, spoke with [facility] who confirmed hand written scripts will be needed. Nursing staff was notified of this and will be working to get signature on them. JOHN next spoke with pt mom/DPOA to provide mental health f/u appointment time. Mother agreeable to f/u date/time. JOHN set d/c date with mother for this Saturday10/07/20. Mother will let SW know what time she can pick pt up on Saturday. Mother agreeable to p/u scripts earlier than d/c so that the [facility] can have them filled prior to d/c date. Once scripts are signed by , JOHN will notify pt mother/DPOA where to pick scripts up at. Lastly, JOHN discussed d/c date with pt along with f/u appts and prescriptions being filled. Pt agreeable. Once JOHN knows of specific d/c time on 10/07/20, JOHN will notify nursing staff.
[2020-10-05] MEDS: DIVALPROEX ER 500 MG TAB.ER.24H PO SCH (20:09)
[2020-10-05] MEDS: ATORVASTATIN CALCIUM 20 MG TABLET PO SCH (20:10)
--- NOTE | 2020-10-05 20:54 | PDOC ---
Exam Note: Pasha Note: Please also refer to the separate dictated note~for this date of service dictated separately.~Patient seen individually. Discussed the patient with Nursing staff reviewed the chart.~Reviewed interim history and current functioning. Reviewed vital signs,~Labs/ Radiology~and current medications noted below. Continue current treatment with the changes noted in the dictated addendum note Assessment: Vital Signs/I&O: Vital Signs Date Time Temp Pulse Resp B/P (MAP) Pulse Ox O2 Delivery O2 Flow Rate FiO2 10/05/20 15:20 98.0 60 20 130/69 (89) 98 Room Air I & O 10/04/20 10/04/20 10/05/20 15:00 23:00 07:00 Intake Total 840 ml 720 ml Balance 840 ml 720 ml Labs: Laboratory Tests Test 10/05/20 07:47 Glucose (Fingerstick) 135 mg/dL (70-99) H Current Medications: I have reviewed the current psychotropics carefully including drug interactions. Risk benefit ratio favors no change other than as noted in my dictated progress note. Diagnosis: Problems: (1) Bipolar affective disorder, mixed (2) Anxiety disorder, unspecified (3) Impulse control disorder, unspecified (4) Bipolar disorder, curr episode mixed, severe, with psychotic features SHARRI GARCIA MD Oct 05, 2020 20:54
--- NOTE | 2020-10-06 01:17 | NUR ---
Location of Patient during Assessment: Pt room Behaviors Mood and Affect this shift: Flat, looking forward to discharge Medication Compliant: Took meds whole Assessment Compliant: Cooperative Response After Interventions: Sleeping well
[2020-10-06 04:32] VITALS: BP 106/70
[2020-10-06] MEDS: ASPIRIN CHEWABLE 81 MG TABLET. PO SCH (04:42)
[2020-10-06] MEDS: ARIPiprazole 5 MG TABLET PO SCH (04:42)
[2020-10-06] MEDS: LACTOBACILLUS RHAMNOSUS GG 1 CAPSULE. PO SCH ×2 (04:42→19:45)
[2020-10-06] MEDS: TAMSULOSIN 0.4 MG CAP.ER.24H. PO SCH (04:42)
[2020-10-06] MEDS: levETIRAcetam 500 MG TABLET PO SCH ×2 (04:42→19:46)
[2020-10-06] MEDS: PYRIDOXINE 50 MG TABLET. PO SCH (04:43)
[2020-10-06] MEDS: CHOLECALCIFEROL (VITAMIN D3) 50,000 UNIT CAPSULE PO SCH (04:44)
--- NOTE | 2020-10-06 07:51 | PDOC ---
Exam Note: Pasha Note: This note is a late entry for 10/04/2020 covers elements not covered in my initial note. Subjective: The patient was seen face to face in the evening of 10/04/2020 with Jere OCONNOR. Discussed with nursing staff, reviewed the chart. He slept 6-1/4 hours previous night. He gets a little anxious at times but irritability is better. Review of Systems: Positive for expressive aphasia. No CV, , pulmonary, eye system symptoms on review. Mental Status Exam: Oriented to himself and at times situation. Speech is coherent. Abstraction is fair. Computation impaired. Language function is intact. Mood and affect is withdrawn. No active hallucinations but he is distractible. I met with him on 2 separate occasions on rounds. No suicidal or homicidal ideation. Laboratory Data: Reviewed. Impression: Bipolar disorder mixed with psychotic features. Impulse control disorder. Anxiety disorder unspecified. Expressive aphasia. Mild cognitive impairment. Plan: Continue psychotropics from initial note. Adjust as clinically indicated. I would prefer not to reduce the Keppra for now since he had seizure once we had stopped it. Irritability had been increased on Keppra but we will have to weigh the risk-benefit ratio and make further adjustments as clinically indicated. Assessment: Vital Signs/I&O: Vital Signs Date Time Temp Pulse Resp B/P (MAP) Pulse Ox O2 Delivery O2 Flow Rate FiO2 10/06/20 04:32 96.7 74 16 106/70 (82) 95 Room Air I & O 10/05/20 10/05/20 10/06/20 14:59 22:59 06:59 Intake Total 1200 ml 720 ml Balance 1200 ml 720 ml Current Medications: I have reviewed the current psychotropics carefully including drug interactions. Risk benefit ratio favors no change other than as noted in my dictated progress note. Diagnosis: Problems: (1) Bipolar affective disorder, mixed (2) Anxiety disorder, unspecified (3) Impulse control disorder, unspecified (4) Bipolar disorder, curr episode mixed, severe, with psychotic features SHARRI GARCIA MD Oct 06, 2020 07:51
[2020-10-06] MEDS: metFORMIN 500 MG TABLET PO SCH (08:00)
--- NOTE | 2020-10-06 08:08 | PDOC ---
Exam Note: Pasha Note: This note is a late entry for 10/05/2020 covers elements not covered in my initial note. Subjective: The patient was seen face to face in the evening of 10/05/2020 with Marlen OCONNOR. Discussed with nursing staff, reviewed the chart. He slept 7-1/4 hours previous night. Overall the patient attempts to be helpful on the unit. He is less impulsive. I met with him in his room. Review of Systems: No CV, , pulmonary, eye system symptoms on review. Mental Status Exam: Oriented to himself and at times situation. Speech is coherent. Abstraction is fair. Computation impaired. Language function is intact. Mood and affect is withdrawn. No active hallucinations. No suicidal or homicidal ideation. Laboratory Data: Reviewed. Impression: Bipolar disorder mixed with psychotic features. Impulse control disorder. Anxiety disorder unspecified. Expressive aphasia. Mild cognitive impairment. Plan: Possible transition home on Sunday 10/07. Assessment: Vital Signs/I&O: Vital Signs Date Time Temp Pulse Resp B/P (MAP) Pulse Ox O2 Delivery O2 Flow Rate FiO2 10/06/20 04:32 96.7 74 16 106/70 (82) 95 Room Air I & O 10/05/20 10/05/20 10/06/20 14:59 22:59 06:59 Intake Total 1200 ml 720 ml Balance 1200 ml 720 ml Current Medications: I have reviewed the current psychotropics carefully including drug interactions. Risk benefit ratio favors no change other than as noted in my dictated progress note. Diagnosis: Problems: (1) Bipolar affective disorder, mixed (2) Anxiety disorder, unspecified (3) Impulse control disorder, unspecified (4) Bipolar disorder, curr episode mixed, severe, with psychotic features SHARRI GARCIA MD Oct 06, 2020 08:08
[2020-10-06] MEDS: glipiZIDE 5 MG TABLET PO SCH ×3 (08:20→19:45)
[2020-10-06] MEDS: EMPAGLIFLOZIN 10 MG TABLET. PO SCH (08:21)
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
--- NOTE | 2020-10-06 13:09 | NUR ---
Patient is alert and oriented sitting on edge of bed at time of assessment. Patient is anxious to go home. We discussed some anger management and how to deal with situations at home if he feels frustrated. He is willing to help out at home and knows he needs to not get so frustrated with his family. His mother will be picking up his scripts today [facility]. She will let us know if there are any issues with them. No further concerns or complaints at this time.
--- NOTE | 2020-10-06 13:25 | NUR ---
SW and pt made phone call together to pt mom/DPOA. D/C time set for tomorrow 10/07/20 between 1500 and 1700. SW arranged with pt mom for pt prescriptions to be picked up with hospital front door telephone operator receptionist. SW delivered scripts as agreed. Mother will p/u and take them to [place] pharmacy to be filled prior to pt being discharged. Pt given phone to talk with mother. After pt had short conversation with mother, pt reported that conversation went okay and that she told him that things would work out.
[2020-10-06 16:11] VITALS: BP 129/68
--- NOTE | 2020-10-06 16:16 | NUR ---
[facility] Social Work Discharge Planning Form Patient Name DEYSI CORONA Admit Date: 09/06/2020 DISCHARGE PLAN Discharge Destination: Home Care Assessment: No Level II Assessment: No Transportation: Pt mother/DPOA will p/u on 10/07/2020 between 1500 and 1700 Special Instructions/Notes: Please fax discharge orders to Psychiatrist at [place]; [facility] Dr. Hwang (P)[phone] (F)[phone] . Mother/DPOA has already p/u scripts to have filled at [place] pharmacy. DISCHARGE TO HOME: Address: [address] [place] [address] [place] [address] Responsible Democrat: Mother/DPOA Nury Corona Pharmacy: [facility]-Do not need to fax scripts as mother/DPSHONA has already picked up hand written scripts and delivered them to [place]. Contact Information: (P)[phone] (F)[phone] Psychiatrist/Mental Health Follow Up: Dr. Jaiden Brewer 10/12/2020 at 2:30pm (P)[phone] (F)[phone] Speech Therapy Follow Up: 10/11/2020 at 10:00am
[2020-10-06] MEDS: DIVALPROEX ER 500 MG TAB.ER.24H PO SCH (19:46)
[2020-10-06] MEDS: ATORVASTATIN CALCIUM 20 MG TABLET PO SCH (19:46)
--- NOTE | 2020-10-06 20:51 | PDOC ---
Exam Note: Pasha Note: Please also refer to the separate dictated note~for this date of service dictated separately.~Patient seen individually. Discussed the patient with Nursing staff reviewed the chart.~Reviewed interim history and current functioning. Reviewed vital signs,~Labs/ Radiology~and current medications noted below. Continue current treatment with the changes noted in the dictated addendum note Assessment: Vital Signs/I&O: Vital Signs Date Time Temp Pulse Resp B/P (MAP) Pulse Ox O2 Delivery O2 Flow Rate FiO2 10/06/20 16:11 97.8 77 16 129/68 (88) 97 10/06/20 04:32 Room Air I & O 10/05/20 10/05/20 10/06/20 14:59 22:59 06:59 Intake Total 1200 ml 720 ml Balance 1200 ml 720 ml Labs: Laboratory Tests Test 10/06/20 08:00 Glucose (Fingerstick) 171 mg/dL (70-99) H Current Medications: I have reviewed the current psychotropics carefully including drug interactions. Risk benefit ratio favors no change other than as noted in my dictated progress note. Diagnosis: Problems: (1) Bipolar affective disorder, mixed (2) Anxiety disorder, unspecified (3) Impulse control disorder, unspecified (4) Bipolar disorder, curr episode mixed, severe, with psychotic features SHARRI GARCIA MD Oct 06, 2020 20:51
--- NOTE | 2020-10-06 21:23 | NUR ---
Pt withdrawn to his room at shift change. Pt calm, interactive when approached, and appropriate. Pt cooperative with assessment and compliant with medications administered whole.
[2020-10-07] MEDS ORDERED: CHOL500021 PO (00:31)
[2020-10-07] MEDS ORDERED: ACET325T21 PO (00:31)
[2020-10-07] MEDS ORDERED: DIVA500T4 PO (00:32)
[2020-10-07] MEDS ORDERED: EMPA10TA PO (00:32)
[2020-10-07] MEDS ORDERED: MAG-95 PO (00:33)
[2020-10-07] MEDS ORDERED: MAGN24003 PO (00:34)
[2020-10-07] MEDS ORDERED: METH57CR17 TP (00:34)
[2020-10-07] MEDS ORDERED: OLAN5TAB7 PO (00:35)
[2020-10-07] MEDS ORDERED: FLUV50TA2 PO (00:36)
[2020-10-07] MEDS ORDERED: LEVE500T21 PO (00:37)
[2020-10-07] MEDS ORDERED: TRAZ-120 PO (00:37)
[2020-10-07 05:58] VITALS: BP 107/69
[2020-10-07] MEDS: EMPAGLIFLOZIN 10 MG TABLET. PO SCH (07:53)
[2020-10-07] MEDS: TAMSULOSIN 0.4 MG CAP.ER.24H. PO SCH (07:53)
[2020-10-07] MEDS: ARIPiprazole 5 MG TABLET PO SCH (07:53)
[2020-10-07] MEDS: metFORMIN 500 MG TABLET PO SCH (07:53)
[2020-10-07] MEDS: PYRIDOXINE 50 MG TABLET. PO SCH (07:53)
[2020-10-07] MEDS: LACTOBACILLUS RHAMNOSUS GG 1 CAPSULE. PO SCH (07:53)
[2020-10-07] MEDS: glipiZIDE 5 MG TABLET PO SCH ×2 (07:54→14:17)
[2020-10-07] MEDS: ASPIRIN CHEWABLE 81 MG TABLET. PO SCH (07:54)
[2020-10-07] MEDS: levETIRAcetam 500 MG TABLET PO SCH (07:54)
[2020-10-07 15:00] VITALS: BP 129/86
--- NOTE | 2020-10-07 15:26 | NUR ---
Transition Record was faxed to follow-up provider with the following elements: Reason for admission, procedures, tests, principal diagnosis, pending studies, patient instructions, 10/06 contact information for unit, phone number to obtain pending test results, plan for follow-up care, physician follow-up, advanced directive information, and medication list with dose, duration and instructions. This information was included in the following documents: History and physical, lab results, study results, progress notes, social work planning form, DC instruction form, patient visit summary, and medication reconciliation form. Date & time record faxed: 10/07/20 0040 Record faxed to: Dr Hwang Record discussed with/ report given to: patient
--- NOTE | 2020-10-08 06:57 | PDOC ---
Exam Note: Pasha Note: This note is a late entry for 10/06/2020 covers elements not covered in my initial note. Subjective: The patient was seen face to face in the morning of 10/06/2020 for treatment team meeting with Milli Garland and Connie (social sciences department chair staff), Sandi, Activity Therapy and Marlen OCONNOR. Discussed with nursing staff, reviewed the chart. He slept 6-1/2 hours previous night. Overall the patient attempts remains somewhat anxious, but much less impulsive, more cooperative. No clear psychotic symptoms, suicidal or homicidal ideation. Review of Systems: No CV, , pulmonary, eye system symptoms on review. Mental Status Exam: Oriented to himself and at times situation. He continues to have expressive aphasia which at times increases irritability but he is handling the irritability much better. No aggression noted. Speech is coherent. Abstraction is fair. Computation impaired. Language function is intact. Mood and affect is withdrawn. No active hallucinations. No suicidal or homicidal ideation. Laboratory Data: Reviewed. Impression: Bipolar disorder mixed with psychotic features. Impulse control disorder. Anxiety disorder unspecified. Expressive aphasia. Mild cognitive impairment. Plan: We will plan for the patient to have a Zoom meeting with his mother on 10/06 and preparation for a discharge on 10/07. Continue current psychotropics. Assessment: Vital Signs/I&O: Vital Signs Date Time Temp Pulse Resp B/P (MAP) Pulse Ox O2 Delivery O2 Flow Rate FiO2 10/07/20 15:00 98.0 68 19 129/86 (100) 97 Room Air I & O 10/07/20 10/07/20 10/08/20 15:00 23:00 07:00 Intake Total 960 ml Balance 960 ml Labs: Laboratory Tests Test 10/07/20 07:55 Glucose (Fingerstick) 129 mg/dL (70-99) H Current Medications: I have reviewed the current psychotropics carefully including drug interactions. Risk benefit ratio favors no change other than as noted in my dictated progress note. Diagnosis: Problems: (1) Bipolar affective disorder, mixed (2) Anxiety disorder, unspecified (3) Impulse control disorder, unspecified (4) Bipolar disorder, curr episode mixed, severe, with psychotic features SHARRI GARCIA MD Oct 08, 2020 06:57
--- NOTE | 2020-10-08 06:58 | PDOC ---
Exam Note: Pasha Note: Please also refer to the separate dictated note~for this date of service dictated separately.~Patient seen individually. Discussed the patient with Nursing staff reviewed the chart.~Reviewed interim history and current functioning. Reviewed vital signs,~Labs/ Radiology~and current medications noted below. Continue current treatment with the changes noted in the dictated addendum note Assessment: Vital Signs/I&O: Vital Signs Date Time Temp Pulse Resp B/P (MAP) Pulse Ox O2 Delivery O2 Flow Rate FiO2 10/07/20 15:00 98.0 68 19 129/86 (100) 97 Room Air I & O 10/07/20 10/07/20 10/08/20 15:00 23:00 07:00 Intake Total 960 ml Balance 960 ml Labs: Laboratory Tests Test 10/07/20 07:55 Glucose (Fingerstick) 129 mg/dL (70-99) H Current Medications: I have reviewed the current psychotropics carefully including drug interactions. Risk benefit ratio favors no change other than as noted in my dictated progress note. Diagnosis: Problems: (1) Bipolar affective disorder, mixed (2) Anxiety disorder, unspecified (3) Impulse control disorder, unspecified (4) Bipolar disorder, curr episode mixed, severe, with psychotic features SHARRI GARCIA MD Oct 08, 2020 06:58
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
== END 2020-10-07 16:55 | disposition home or self-care (01) | DRG 885 ==
LOC: GEROPSY 14:45
PROVIDERS: ADMIT Psychiatry & Neurology Psychiatry; ATTEND Psychiatry & Neurology Psychiatry
DX: F31.64 Bipolar disorder, current episode mixed, severe, with psychotic features (principal); I69.351 Hemiplegia and hemiparesis following cerebral infarction affecting right dominant side; G40.909 Epilepsy, unspecified, not intractable, without status epilepticus; F41.9 Anxiety disorder, unspecified; E11.9 Type 2 diabetes mellitus without complications; G47.00 Insomnia, unspecified; I69.320 Aphasia following cerebral infarction; Z20.828 Contact with and (suspected) exposure to other viral communicable diseases; I10 Essential (primary) hypertension; I25.10 Atherosclerotic heart disease of native coronary artery without angina pectoris; N40.0 Benign prostatic hyperplasia without lower urinary tract symptoms; E78.5 Hyperlipidemia, unspecified; F10.21 Alcohol dependence, in remission; F63.9 Impulse disorder, unspecified; G31.84 Mild cognitive impairment of uncertain or unknown etiology; N28.9 Disorder of kidney and ureter, unspecified; Z79.899 Other long term (current) drug therapy; Z79.84 Long term (current) use of oral hypoglycemic drugs; Z79.82 Long term (current) use of aspirin
CPT/HCPCS: 36415; 80053; 80164; 82947; 85025; 95816; J1953; J2060; U0003